=== PATIENT | female | born 1970 | race Caucasian/White ===

== ENCOUNTER → 2020-11-21 15:31 | Outpatient (BNVA) | payer MEDICARE, MEDICAID, SELFPAY | PROVIDERS: PCP Internal Medicine; Visit Provider Urology | DX: N32.81 Overactive bladder (principal) | CPT/HCPCS: Q3014 ==

== ENCOUNTER 2021-05-06 12:53 | Outpatient (REF) | payer MEDICARE, MEDICAID, SELFPAY ==
--- NOTE | ~2021-05-06 | MM_ITS ---
EXAMINATION: MM SCREENING DIGITAL BREAST TOMOSYNTHESIS, BILATERAL CLINICAL INFORMATION: Screening. Asymptomatic. The lifetime risk of breast cancer based on the Tyrer-Cuzick Model is 10%. COMPARISON: Mammography: 04/30/2020, 04/25/2019, 04/07/2018 TECHNIQUE: Digital breast tomosynthesis is performed in both the craniocaudal and mediolateral oblique views along with computer-aided detection (CAD). Synthesized 2D images are generated from the tomosynthesis. FINDINGS: There are scattered areas of fibroglandular density (ACR BI-RADS breast composition Category b). There are no significant masses, abnormal calcifications, or other abnormalities. Parenchymal pattern is similar to prior exam. No developing density. The skin contours are smooth. MM/MM tomosynthesis screening BI IMPRESSION: No mammographic evidence of malignancy. ASSESSMENT: BI-RADS 1: Negative RECOMMENDATION: Routine annual mammography screening. This patient's information was entered into a reminder system with a target due date for their next mammogram.
== END 2021-05-06 12:54 | disposition home or self-care (01) ==
LOC: HO.MAMMO 12:53
PROVIDERS: Visit Provider Internal Medicine
DX: Z12.31 Encounter for screening mammogram for malignant neoplasm of breast (principal)
CPT/HCPCS: 77063; 77067

== ENCOUNTER 2021-05-23 21:18 | Emergency (ER) | payer MEDICARE, MEDICAID, SELFPAY ==
[2021-05-23 21:26] VITALS: BP 118/64; BP 120/88; PULSE 67; PULSE 86; RESP 17; TEMP 37.2; O2SAT 100; O2SAT 97; BMI 26.5
[2021-05-23 21:33] VITALS: BP 118/64; PULSE 74; RESP 17; O2SAT 99
[2021-05-23 21:56] LABS: MANUAL DIFF FLAG NO
[2021-05-23 21:57] LABS: Basophils Absolute Auto 0.1 X10*3/uL (0.0-0.2); Basophils Percent Auto 0.6 % (0-2); Eosinophils Absolute Auto 0.2 X10*3/uL (0.0-0.4); Eosinophils Percent Auto 1.8 % (0-4); Hematocrit 37.9 % (37-47); Hemoglobin 12.5 g/dl (12.0-16.0); Imm Gran Abs Auto 0.02 X10*3/uL (0.00-0.03); Imm Gran Pct Auto 0.2 % (0.0-0.4); Lymphocytes Absolute Auto 3.2 X10*3/uL (1.2-4.9); Lymphocytes Percent Auto 37.8 % (20-40); Mean Corpuscular Volume 87.9 fL (80-98); Mean Platelet Volume 8.8 fL (9.4-12.3); Monocytes Absolute Auto 0.6 X10*3/uL (0.1-1.2); Monocytes Percent Auto 7.4 % (2-11); Neutrophils Absolute Auto 4.4 X10*3/uL (2.0-8.3); Neutrophils Percent Auto 52.2 % (45-73); Platelet Count 227 X10*3/uL (160-400); Red Blood Count 4.31 X10*6/uL (4.20-5.50); Red Cell Distribution Width 13.3 % (11.0-16.0); White Blood Count 8.4 X10*3/uL (4.8-10.8)
[2021-05-23 21:59] LABS: Glucose Urine UA NEG (NEG); Leukocyte Esterase Urine NEG (NEG); Nitrite Urine NEG (NEG); Urine Blood NEG (NEG); Urine Ketones NEG (NEG); Urine Protein NEG (NEG-TRACE)
[2021-05-23 22:04] LABS: Appearance Urine CLEAR; Color Urine YELLOW
[2021-05-23 22:22] LABS: Troponin-I High Sensitivity < 3.5 ng/L (<3.5-17.0)
[2021-05-23 22:26] LABS: Anion Gap 11 (12-20); Blood Urea Nitrogen 13 mg/dL (9-16); Carbon Dioxide 22 mmol/L (22-29); Chloride 111 mmol/L (96-108); Creatinine Clr Calc Pharmacy 71.6; Estimated Glomerular Filt Rate > 60; Glucose Random 101 mg/dL (60-115); Potassium 3.7 mmol/L (3.3-5.1); Sodium 140 mmol/L (135-145)
[2021-05-23 22:54] VITALS: BP 114/63; PULSE 71; RESP 14; TEMP 37.2; O2SAT 97
--- NOTE | 2021-05-23 23:58 | ED.CHESTPAIN ---
HPI - Chest Pain General Chief Complaint: Chest Pain Stated Complaint: chest pain anxiety Time Seen by Provider: 05/23/21 23:58 Source: patient Mode of arrival: EMS History of Present Illness HPI narrative: 50-year-old female is brought in by EMS after stating that she was at rest in bed and at approximately 8:00 p.m. began experiencing significant substernal chest pressure that she rates at 5/10, nonradiating, and not associated with dizziness/headache/nausea/diaphoresis but states that she did have some mild shortness of breath and noted that the pain increase with deep inspiration but denies any association with movement. Otherwise, she denies any recent or current sore throat, new cough, fever, chills, GI or symptoms. At this time patient states that she is completely asymptomatic and is unsure as to whether not this may be associated with her anxiety. Related Data Home Medications Medication Instructions Recorded Confirmed fluticasone propionate 50 2 spray INTRANASAL DAILY 08/09/20 08/09/20 mcg/actuation nasal spray,suspension levonorgestrel 20 mcg/24 hours (6 INTRAUTERINE 08/09/20 08/09/20 yrs) 52 mg intrauterine device (Mirena) Previous Rx's Medication Instructions Recorded fesoterodine 8 mg tablet,extended 8 mg PO DAILY 90 Days #90 tab 10/10/20 release 24 hr (Toviaz) fesoterodine 4 mg tablet,extended 4 mg PO DAILY 90 Days #90 tab 11/21/20 release 24 hr epinephrine 0.3 mg/0.3 mL 0.3 mg IM Q15M PRN #2 ea 02/21/21 injection, auto-injector (EpiPen 2-Ken) escitalopram oxalate 10 mg tablet 10 mg PO DAILY 90 Days #90 tab 05/09/21 lorazepam 0.5 mg tablet 0.5 mg PO BID PRN 30 Days #60 tab 05/09/21 Allergies Allergy/AdvReac Type Severity Reaction Status Date / Time bee pollen [BEE STINGS] Allergy Unknown UNKNOWN Verified 05/23/21 21:25 Review of Systems Review of Systems: Pertinent positives and negatives as stated in HPI 10 point review of systems is otherwise negative. PMFSH Past Medical History Source: nursing notes reviewed Medical History Allergic rhinitis Depression History of supraventricular tachycardia Impaired fasting glucose Obesity (BMI 30-39.9) Overactive bladder Post traumatic stress disorder (PTSD) Pure hypercholesterolemia Surgical History History of ankle surgery History of cardiac radiofrequency ablation Family History Family History Father Cancer CVD (cardiovascular disease) Mother Breast cancer Hypertension Diabetes Social History Social History Advance Directives: No Advance Directives Information Provided: No Patient : No Physical Exam Vital Signs: Vital Signs: Last Vital Signs Temp 98.9 F 05/23/21 22:54 Pulse 76 05/24/21 00:45 Resp 14 05/24/21 00:45 BP 125/74 05/24/21 00:45 Pulse Ox 98 05/24/21 00:45 Body Mass Index 26.5 VITAL SIGNS: Reviewed. GENERAL: Well developed, well nourished, in no acute distress. HEAD: Normocephalic/atraumatic EYES: PERRLA, EOMI EARS: Ext canals without abnormality, TMs non-bulging and non-erythematous NOSE: Nares patent bilateral OROPHARYNX: no oral lesions noted, posterior pharynx clear and non-erythematous without noted tonsillar enlargement/erythema/exudates NECK: Supple, no adenopathy LUNGS: Normal breath sounds. No adventitious sounds or accessory muscle use. SpO2<97>, no chest wall tenderness on palpation CARDIOVASCULAR: Regular rate and rhythm without noted murmurs, no JVD or lower extremity edema. ABDOMEN: Soft, non-tender, non-distended with bowel sounds. MUSCULOSKELETAL: No tenderness, deformities, or effusions noted on gross inspection. EXTREMITIES: No cyanosis, clubbing or edema. SKIN: Inspection of the skin reveals no rashes NEUROLOGIC: Alert and oriented x 4. Strength and sensation to light touch were grossly intact x 4. Course Course Course Narrative: This is a 50-year-old female with history and clinical presentation suggestive of possible anxiety versus acid reflux symptoms, however will rule out cardiopulmonary etiologies to include infection. Review of all investigations negative for any acute findings and serial troponins were both undetectable as well as no acute findings on EKG. All results were discussed with the patient at bedside and she was discharged home in stable condition with instructions to follow-up with her primary care provider. MDM - Chest Pain Lab Data Result diagrams: 05/23/21 21:51 05/23/21 21:51 Labs: Lab Results 05/23/21 05/23/21 05/23/21 Range/Units 21:51 21:51 21:51 WBC 8.4 (4.8-10.8) X10*3/uL RBC 4.31 (4.20-5.50) X10*6/uL Hgb 12.5 (12.0-16.0) g/dl Hct 37.9 (37-47) % MCV 87.9 (80-98) fL MCH 29.0 (27.0-33.0) pg MCHC 33.0 (31.0-35.0) g/dl RDW 13.3 (11.0-16.0) % Plt Count 227 (160-400) X10*3/uL MPV 8.8 L (9.4-12.3) fL Immature Gran % (Auto) 0.2 (0.0-0.4) % Neut % (Auto) 52.2 (45-73) % Lymph % (Auto) 37.8 (20-40) % [place] % (Auto) 7.4 (2-11) % Eos % (Auto) 1.8 (0-4) % Baso % (Auto) 0.6 (0-2) % Lymph # (Auto) 3.2 (1.2-4.9) X10*3/uL [place] # (Auto) 0.6 (0.1-1.2) X10*3/uL Eos # (Auto) 0.2 (0.0-0.4) X10*3/uL Baso # (Auto) 0.1 (0.0-0.2) X10*3/uL Abs Immat Gran (auto) 0.02 (0.00-0.03) X10*3/uL Absolute Neuts (auto) 4.4 (2.0-8.3) X10*3/uL Absolute Nucleated RBC 0.000 (0.0-0.012) X10*3/uL Nucleated RBC % (auto) 0.0 (0.0-0.2) /100WBC Sodium 140 (135-145) mmol/L Potassium 3.7 (3.3-5.1) mmol/L Chloride 111 H (96-108) mmol/L Carbon Dioxide 22 (22-29) mmol/L Anion Gap 11 L (12-20) BUN 13 (9-16) mg/dL Creatinine 0.87 (0.5-1.4) mg/dL Estim Creat Clear Calc 71.6 Estimated GFR > 60 Random Glucose 101 (60-115) mg/dL Calcium 9.0 (8.4-10.2) mg/dL Troponin I High Sens (<3.5-17.0) ng/L Urine Color YELLOW Urine Appearance CLEAR Urine pH 7.0 (5.0-8.0) Ur Specific [place] 1.010 (1.005-1.025) Urine Protein NEG (NEG-TRACE) MG/DL Urine Glucose (UA) NEG (NEG) MG/DL Urine Ketones NEG (NEG) MG/DL Urine Blood NEG (NEG) Urine Nitrite NEG (NEG) Ur Leukocyte Esterase NEG (NEG) 05/23/21 05/24/21 Range/Units 21:51 00:50 WBC (4.8-10.8) X10*3/uL RBC (4.20-5.50) X10*6/uL Hgb (12.0-16.0) g/dl Hct (37-47) % MCV (80-98) fL MCH (27.0-33.0) pg MCHC (31.0-35.0) g/dl RDW (11.0-16.0) % Plt Count (160-400) X10*3/uL MPV (9.4-12.3) fL Immature Gran % (Auto) (0.0-0.4) % Neut % (Auto) (45-73) % Lymph % (Auto) (20-40) % [place] % (Auto) (2-11) % Eos % (Auto) (0-4) % Baso % (Auto) (0-2) % Lymph # (Auto) (1.2-4.9) X10*3/uL [place] # (Auto) (0.1-1.2) X10*3/uL Eos # (Auto) (0.0-0.4) X10*3/uL Baso # (Auto) (0.0-0.2) X10*3/uL Abs Immat Gran (auto) (0.00-0.03) X10*3/uL Absolute Neuts (auto) (2.0-8.3) X10*3/uL Absolute Nucleated RBC (0.0-0.012) X10*3/uL Nucleated RBC % (auto) (0.0-0.2) /100WBC Sodium (135-145) mmol/L Potassium (3.3-5.1) mmol/L Chloride (96-108) mmol/L Carbon Dioxide (22-29) mmol/L Anion Gap (12-20) BUN (9-16) mg/dL Creatinine (0.5-1.4) mg/dL Estim Creat Clear Calc Estimated GFR Random Glucose (60-115) mg/dL Calcium (8.4-10.2) mg/dL Troponin I High Sens < 3.5 < 3.5 (<3.5-17.0) ng/L Urine Color Urine Appearance Urine pH (5.0-8.0) Ur Specific [place] (1.005-1.025) Urine Protein (NEG-TRACE) MG/DL Urine Glucose (UA) (NEG) MG/DL Urine Ketones (NEG) MG/DL Urine Blood (NEG) Urine Nitrite (NEG) Ur Leukocyte Esterase (NEG) ECG Data ECG #1: Attestation: I personally reviewed and interpreted this ECG as follows: Prior ECG tracings: not available for review Interpretation: Normal sinus rhythm, HR-72, no STEMI, [place]/QRS/QTC are within normal limits. Discharge Plan Discharge Clinical Impression: Atypical chest pain, Anxiety Patient Disposition: Home, Self-Care Instructions: Anxiety (ED) Additional Instructions: 1. Resume all home medications as prescribed. 2. Please follow-up with primary care provider in the next 2-3 days for re-evaluation and further outpatient management. Return to the ER for acute worsening of symptoms. Prescriptions: No Action Toviaz 8 mg tablet extended release 24 hr 8 mg PO DAILY 90 Days Qty: 90 RF: 2 epinephrine [EpiPen 2-Ken] 0.3 mg/0.3 mL auto-injector 0.3 mg IM Q15M PRN (Reason: anaphylaxis) Qty: 2 RF: 2 escitalopram oxalate 10 mg tablet 10 mg PO DAILY 90 Days Qty: 90 RF: 1 lorazepam 0.5 mg tablet 0.5 mg PO BID PRN (Reason: anxiety) 30 Days Qty: 60 RF: 0 Mirena 20 mcg/24 hours (5 yrs) 52 mg intrauterine device intrauterine RF: 0 fluticasone propionate 50 mcg/actuation spray,suspension 2 spray intranasal DAILY RF: 0 fesoterodine 4 mg tablet extended release 24 hr 4 mg PO DAILY 90 Days Qty: 90 RF: 3 Referrals: Marco Gresham MD [Primary Care Provider] - 2 days
--- NOTE | 2021-05-24 00:04 | ECG_ITS ---
Test Reason : CHEST PAIN Blood Pressure : / mmHG Vent. Rate : 072 BPM Atrial Rate : 072 BPM P-R Int : 136 ms QRS Dur : 078 ms QT Int : 380 ms P-R-T Axes : 026 077 050 degrees QTc Int : 416 ms Normal sinus rhythm Normal ECG When compared with ECG of 16-JAN-2010 14:44, No significant change was found Referred By: Megan Darling Electronically Signed By:JEROME ART
--- NOTE | 2021-05-24 00:19 | PC.NURSE ---
per Dr Darling, repeat EKG not needed.
[2021-05-24 00:45] VITALS: BP 125/74; PULSE 76; RESP 14; O2SAT 98
[2021-05-24 01:18] LABS: Troponin-I High Sensitivity < 3.5 ng/L (<3.5-17.0)
== END 2021-05-24 01:33 | disposition home or self-care (01) ==
PROVIDERS: Emergency Provider Student in an Organized Health Care Education/Training Program; PCP Internal Medicine
DX: R07.89 Other chest pain (principal); F41.1 Generalized anxiety disorder; F43.0 Acute stress reaction; R42 Dizziness and giddiness; Z79.899 Other long term (current) drug therapy; R06.02 Shortness of breath
CPT/HCPCS: 36415; 80048; 81003; 84484; 85025; 93005; 99284

== ENCOUNTER → 2021-06-04 14:40 | Outpatient (BNVA) | payer MEDICARE, MEDICAID, SELFPAY | PROVIDERS: PCP Internal Medicine; Visit Provider Advanced Practice Midwife | DX: Z30.432 Encounter for removal of intrauterine contraceptive device (principal); L90.0 Lichen sclerosus et atrophicus; E78.00 Pure hypercholesterolemia, unspecified; E66.9 Obesity, unspecified; Z68.29 Body mass index [BMI] 29.0-29.9, adult; Z91.030 Bee allergy status; Z79.899 Other long term (current) drug therapy | CPT/HCPCS: 58301 ==

== ENCOUNTER → 2021-07-23 14:40 | Outpatient (BNVA) | payer MEDICARE, MEDICAID, SELFPAY | PROVIDERS: Visit Provider Advanced Practice Midwife | DX: L90.0 Lichen sclerosus et atrophicus (principal); J30.9 Allergic rhinitis, unspecified; E78.00 Pure hypercholesterolemia, unspecified; F43.10 Post-traumatic stress disorder, unspecified; F32.9 Major depressive disorder, single episode, unspecified; Z91.030 Bee allergy status; Z79.52 Long term (current) use of systemic steroids | CPT/HCPCS: 99212 ==

== ENCOUNTER 2021-10-29 09:22 | Outpatient (REF) | payer MEDICARE, MEDICAID, SELFPAY ==
[2021-10-29 09:50] LABS: MANUAL DIFF FLAG NO
[2021-10-29 09:57] LABS: Basophils Percent Auto 0.4 % (0-2); Eosinophils Absolute Auto 0.1 X10*3/uL (0.0-0.4); Eosinophils Percent Auto 0.8 % (0-4); Hemoglobin 13.7 g/dl (12.0-16.0); Imm Gran Abs Auto 0.01 X10*3/uL (0.00-0.03); Imm Gran Pct Auto 0.1 % (0.0-0.4); Lymphocytes Absolute Auto 2.1 X10*3/uL (1.2-4.9); Lymphocytes Percent Auto 29.3 % (20-40); Mean Corpuscular HGB Conc 32.6 g/dl (31.0-35.0); Mean Corpuscular Hemoglobin 29.3 pg (27.0-33.0); Mean Corpuscular Volume 89.9 fL (80.0-98.0); Mean Platelet Volume 8.9 fL (9.4-12.3); Monocytes Absolute Auto 0.5 X10*3/uL (0.1-1.2); Monocytes Percent Auto 7.4 % (2-11); Neutrophils Absolute Auto 4.5 x10*3/uL (2.0-8.3); Platelet Count 254 X10*3/uL (160-400); Red Blood Count 4.67 X10*6/uL (4.20-5.50); Red Cell Distribution Width 13.1 % (11.0-16.0); White Blood Count 7.3 X10*3/uL (4.8-10.8)
[2021-10-29 11:09] LABS: Alanine Aminotransferase 14 U/L (0-31); Alkaline Phosphatase 70 U/L (39-117); Anion Gap 13 (12-20); Aspartate Amino Transferase 14 U/L (5-31); Bilirubin Total 0.5 mg/dL (0.0-1.0); Blood Urea Nitrogen 20 mg/dL (9-16); Calcium 9.2 mg/dL (8.4-10.2); Carbon Dioxide 21 mmol/L (22-29); Chloride 108 mmol/L (96-108); Cholesterol 157 mg/dL; Estimated Glomerular Filt Rate > 60; Glucose Fasting 99 mg/dL (60-99); HDL Cholesterol 38 mg/dL; LDL Cholesterol Calculated 104 mg/dl; Potassium 4.3 mmol/L (3.3-5.1); Sodium 138 mmol/L (135-145); Total Protein 6.7 g/dL (6.5-8.0); Triglycerides 79 mg/dL
[2021-10-29 11:11] LABS: TSH reflex Free T4 3.27 uIU/mL (0.32-4.0); Vitamin D 25-OH Total 22.7 ng/mL (>30)
[2021-10-29 11:18] LABS: Appearance Urine CLEAR; Color Urine YELLOW; Glucose Urine UA NEG (NEG); Leukocyte Esterase Urine NEG (NEG); Nitrite Urine NEG (NEG); Specific Gravity - Urine 1.015 (1.005-1.025); Urine Blood NEG (NEG); Urine Ketones NEG (NEG); Urine Protein NEG (NEG-TRACE)
== END 2021-10-29 09:23 | disposition home or self-care (01) ==
LOC: HO.LAB 09:22
PROVIDERS: PCP Internal Medicine; Visit Provider Internal Medicine
DX: I10 Essential (primary) hypertension (principal); E55.9 Vitamin D deficiency, unspecified; E78.00 Pure hypercholesterolemia, unspecified; R73.01 Impaired fasting glucose; J30.9 Allergic rhinitis, unspecified; Z86.79 Personal history of other diseases of the circulatory system
CPT/HCPCS: 36415; 80053; 80061; 81003; 82306; 84443; 85025

== ENCOUNTER → 2021-11-25 14:20 | Outpatient (BNVA) | payer MEDICARE, MEDICAID, SELFPAY | PROVIDERS: PCP Internal Medicine; Visit Provider Urology | DX: N32.81 Overactive bladder (principal) | CPT/HCPCS: 51798; 99212 ==

== ENCOUNTER → 2021-11-26 12:48 | Outpatient (BNVA) | payer MEDICARE, MEDICAID, SELFPAY | PROVIDERS: PCP Internal Medicine; Referring Provider Internal Medicine; Visit Provider Nurse Practitioner Family | DX: Z12.11 Encounter for screening for malignant neoplasm of colon (principal) | CPT/HCPCS: 99202 ==

== ENCOUNTER 2022-03-10 07:56 | Day surgery (SDC) | payer MEDICARE, MEDICAID, SELFPAY ==
--- NOTE | 2022-03-06 12:58 | HO.ANESPROP2 ---
Documented by User: Yanna Almonte NP 03/06/22 13:04 HPI - Anesthesia Eval Consult details Narrative: 51yo F for Colonoscopy PMFSH Active Problems Active Problems: All Active Problems (Updated 10/29/21 @ 15:07 by Marco Gresham MD) Overweight (BMI 25.0-29.9) (Acute) Colon cancer screening (Acute) Encounter for Medicare annual wellness exam (Acute) Obesity (BMI 30-39.9) (Acute) Depression (Acute) Post traumatic stress disorder (PTSD) (Acute) Overactive bladder (Acute) Allergic rhinitis (Acute) History of supraventricular tachycardia (Acute) Impaired fasting glucose (Acute) Pure hypercholesterolemia (Acute) Past Medical History Medical History Allergic rhinitis Depression History of supraventricular tachycardia Impaired fasting glucose Obesity (BMI 30-39.9) Overactive bladder Overweight (BMI 25.0-29.9) Post traumatic stress disorder (PTSD) Pure hypercholesterolemia Family History Family History Father Cancer CVD (cardiovascular disease) Mother Breast cancer Hypertension Diabetes Surgical History Surgical History History of ankle surgery History of cardiac radiofrequency ablation Social History Social History Housing: Assisted Living Facility Alcohol intake: never Patient Tobacco Use Status: Never used Tobacco Second Hand Smoke Exposure: No service: No Current occupational status: unemployed Meds Allergies Allergy/AdvReac Type Severity Reaction Status Date / Time bee pollen [BEE STINGS] Allergy Unknown UNKNOWN Verified 11/26/21 12:52 Home Medications Medication Instructions Recorded Confirmed Last Taken Type fluticasone propionate 50 2 spray INTRANASAL DAILY 08/09/20 03/03/22 Unknown History mcg/actuation nasal spray,suspension escitalopram oxalate 10 mg tablet 15 mg PO DAILY tab 11/26/21 03/03/22 Unknown History loratadine 10 mg capsule (Claritin 10 mg PO DAILY 11/26/21 03/03/22 Unknown History Liqui-Gel) Exam Exam Date and Time: March 06, 2022 1258 Pertinent Lab Results Pertinent Lab Results: Laboratory Tests 10/29/21 10/29/21 09:49 09:49 WBC 7.3 Hgb 13.7 Hct 42.0 Plt Count 254 Sodium 138 Potassium 4.3 Chloride 108 Carbon Dioxide 21 L BUN 20 H Creatinine 0.85 Narrative Narrative: EKG 05/2021 Vent. Rate : 072 BPM ? ? Atrial Rate : 072 BPM ?? P-R Int : 136 ms? QRS Dur : 078 ms ? ? QT Int : 380 ms ? ? ? P-R-T Axes : 026 077 050 degrees ?? QTc Int : 416 ms ? Normal sinus rhythm Normal ECG When compared with ECG of 16-JAN-2010 14:44, No significant change was found Assessment and Plan Assessment Anesthesia Assessment: Chart Reviewed Documented by User: Hossein Childress MD 03/10/22 15:56 [facility] Past Medical History Medical History Allergic rhinitis Depression History of supraventricular tachycardia Impaired fasting glucose Obesity (BMI 30-39.9) Overactive bladder Overweight (BMI 25.0-29.9) Post traumatic stress disorder (PTSD) Pure hypercholesterolemia Family History Family History Father Cancer CVD (cardiovascular disease) Mother Breast cancer Hypertension Diabetes Family history of problems with anesthesia: No Surgical History Surgical History History of ankle surgery History of cardiac radiofrequency ablation History of Problems with Anesthesia: No Social History Social History Housing: Assisted Living Facility Alcohol intake: never Patient Tobacco Use Status: Never used Tobacco Second Hand Smoke Exposure: No service: No Current occupational status: unemployed Meds Allergies Allergy/AdvReac Type Severity Reaction Status Date / Time bee pollen [BEE STINGS] Allergy Unknown UNKNOWN Verified 11/26/21 12:52 Home Medications Medication Instructions Recorded Confirmed Last Taken Type fluticasone propionate 50 2 spray INTRANASAL DAILY 08/09/20 03/03/22 Unknown History mcg/actuation nasal spray,suspension escitalopram oxalate 10 mg tablet 15 mg PO DAILY tab 11/26/21 03/03/22 Unknown History loratadine 10 mg capsule (Claritin 10 mg PO DAILY 11/26/21 03/03/22 Unknown History Liqui-Gel) Exam Airway Mallampati Class: II TM Dist: >3cm Neck ROM: Full Loose/Missing/Broken Teeth: Yes (Poor dentition ) Heart: S1,S2 Lungs: b/l breath sounds Assessment and Plan Assessment Anesthesia Assessment: Anesthesia Plan Discussed Final Anesthetic Review Family History of Problems with Anesthesia: No History of Problems with Anesthesia: No NPO: Yes ASA Class: II Final Preanesthetic Review: Meds/Allgs Chart Reviewed, Consent Obtained/Reviewed and Anes Risks/Benef Reviewed Patient Risk: Intermediate Procedure Risk: Intermediate Anesthetic Plan Anesthetic Plan: MAC: Disposition: Standard PACU
--- NOTE | 2022-03-10 08:36 | MHC.SHP ---
Pre-Procedural Eval Section A Date of Service: 03/10/22 Section B Chief Complaint: screening Relevant Family History (Specify if Yes): No Relevant Social History: None Present Medications: see Short Stay Collaborative assessment Medical History: Significant History (Allergic rhinitis Depression History of supraventricular tachycardia Impaired fasting glucose Obesity (BMI 30-39.9) Overactive bladder Overweight (BMI 25.0-29.9) Post traumatic stress disorder (PTSD) Pure hypercholesterolemia) History of Previous Operations: Relevant previous surgery/procedure and date(s) (History of ankle surgery History of cardiac radiofrequency ablation) Allergies: Allergies Allergy/AdvReac Type Severity Reaction Status Date / Time bee pollen [BEE STINGS] Allergy Unknown UNKNOWN Verified 11/26/21 12:52 Review of Systems Sugical H&P ROS: Negative: Constitution, Cardiovascular, Respiratory, Neurological, Psychiatric, Hem-Onc, Allergic/Immunologic, Gastrointestinal, Genitourinary, Musculoskeletal, Integumentary, Endocrine and Eyes/Ears/Nose/Throat Exam Surgical H&P Exam: Normal: HEENT, Normal: Heart, Normal: Lungs, Normal: Extremities, Normal: Abdomen, Normal: Skin and Normal: Neurological Plan Diagnosis/Plan: Unchanged I have reviewed the history and physical and performed a pertinent physical examination on my patient. No changes have occurred unless specified.
[2022-03-10 08:39] VITALS: BMI 25.6
[2022-03-10 09:03] VITALS: BP 100/57; PULSE 71; RESP 18; TEMP 36.7; O2SAT 98
[2022-03-10] MEDS: Lactated Ringers 1,000 ML 100 ML IVCONT (09:04)
--- NOTE | 2022-03-10 09:13 | P.BOP_ITS ---
Brief Operative Note Date of Service: 03/10/22 Pre-op diagnosis: colon s creening Post-op diagnosis: same Procedure: see op note Surgeon: Haley Triana MD Anesthesia: MAC Was an Compensation Vice President used for this Procedure?: No Estimated blood loss (mL): 0 Condition: stable Disposition: PACU
--- NOTE | 2022-03-10 09:13 | P.OP_ITS ---
Operative Note Operative Note Date of Service: 03/10/22 Narrative: Operative Information Procedure Description: Colonoscopy Indication: colon screening Anesthesia: MAC COLONOSCOPY Instrument: Olympus variable stiffness pediatric scope 190L Colonoscopy Monitoring: Vital signs and clinical assessment, continuous EKG monitoring, Pulse oximetry, Carbon Dioxide monitoring and blood pressure monitoring were done throughout the procedure. Colon withdrawal time was 9 minutes. Procedure: The patient was placed in the left lateral decubitis position and pre-procedure medications were administered. After a digital rectal examination of the ano-rectum, the video colonoscope was inserted into the rectum and advanced through the colon to the cecum/TI. The colonoscope was slowly withdrawn in a retrograde panoramic fashion and the colon mucosa was carefully examined including a retroflexed view of the rectum. Findings and interventions are described below. Procedure Difficulty: easy Findings: Terminal Ileum-normal Cecum:normal Ascending Colon: normal Transverse Colon -normal Descending Colon:normal Sigmoid Colon: normal Rectum: Retroflexion with small internal hemorrhoids, grade I Anorectum - normal Colon preparation: [place] Bowel Preparation Scale Right colon; 2 Transverse colon: 3 Left colon; 3 (0 = Unprepared colon segment with mucosa not seen due to solid stool that cannot be cleared. 1 = Portion of mucosa of the colon segment seen, but other areas of the colon segment not well seen due to staining, residual stool and/or opaque liquid. 2 = Minor amount of residual staining, small fragments of stool and/or opaque liquid, but mucosa of colon segment seen well. 3 = Entire mucosa of colon segment seen well with no residual staining, small fragments of stool or opaque liquid) Impression and Post Procedure Diagnosis: internal hemorrhoids Plan: High fiber diet leaflet Avoid straining at stool, epsom salts and sitz bath, anusol supps or cream Repeat Colonoscopy in 10 years or earlier if clinically indicated Above findings were reviewed with the patient and relevant handouts were provided if indicated.
[2022-03-10 09:34] VITALS: BP 92/32; PULSE 55; RESP 16; TEMP 36.6; O2SAT 97
[2022-03-10 09:50] VITALS: BP 97/37; PULSE 50; RESP 16; O2SAT 97
[2022-03-10 10:05] VITALS: BP 112/42; PULSE 49; RESP 16; TEMP 36.7; O2SAT 98
[2022-03-10 10:16] VITALS: BP 101/42; PULSE 50; RESP 16; TEMP 36.7; O2SAT 98
== END 2022-03-10 10:49 | disposition home or self-care (01) ==
PROVIDERS: PCP Internal Medicine; Visit Provider Internal Medicine Gastroenterology
PROC: 0DJD8ZZ Inspection of Lower Intestinal Tract, Via Natural or Artificial Opening Endoscopic (ICD-10-PCS; CPT 45378; principal; 2022-03-10 09:20)
DX: Z12.11 Encounter for screening for malignant neoplasm of colon (principal); K64.0 First degree hemorrhoids; R73.01 Impaired fasting glucose; E78.00 Pure hypercholesterolemia, unspecified; J31.0 Chronic rhinitis; F32.A Depression, unspecified; F43.10 Post-traumatic stress disorder, unspecified; N32.81 Overactive bladder; E66.3 Overweight; Z68.27 Body mass index [BMI] 27.0-27.9, adult; Z79.51 Long term (current) use of inhaled steroids; Z79.899 Other long term (current) drug therapy
CPT/HCPCS: G0121; J2250

== ENCOUNTER → 2022-03-24 08:21 | Outpatient (BNVA) | payer MEDICARE, MEDICAID, SELFPAY | PROVIDERS: PCP Internal Medicine; Visit Provider Nurse Practitioner Family | DX: K64.8 Other hemorrhoids (principal); Z98.890 Other specified postprocedural states | CPT/HCPCS: 99212 ==

== ENCOUNTER 2022-03-27 09:13 | Outpatient (REF) | payer MEDICARE, MEDICAID, SELFPAY ==
[2022-03-27 09:21] LABS: MANUAL DIFF FLAG NO
[2022-03-27 10:31] LABS: Basophils Percent Auto 0.5 % (0-2); Eosinophils Absolute Auto 0.1 X10*3/uL (0.0-0.4); Eosinophils Percent Auto 1.3 % (0-4); Hematocrit 42.3 % (37.0-47.0); Hemoglobin 13.5 g/dl (12.0-16.0); Imm Gran Abs Auto 0.01 X10*3/uL (0.00-0.03); Imm Gran Pct Auto 0.2 % (0.0-0.4); Lymphocytes Absolute Auto 2.1 X10*3/uL (1.2-4.9); Mean Corpuscular HGB Conc 31.9 g/dl (31.0-35.0); Mean Corpuscular Hemoglobin 28.7 pg (27.0-33.0); Mean Platelet Volume 8.9 fL (9.4-12.3); Monocytes Absolute Auto 0.4 X10*3/uL (0.1-1.2); Monocytes Percent Auto 5.7 % (2-11); Neutrophils Absolute Auto 3.8 x10*3/uL (2.0-8.3); Neutrophils Percent Auto 59.3 % (45-73); Platelet Count 277 X10*3/uL (160-400); Red Cell Distribution Width 13.7 % (11.0-16.0); White Blood Count 6.4 X10*3/uL (4.8-10.8)
[2022-03-27 11:01] LABS: Alanine Aminotransferase 23 U/L (0-31); Albumin Level 4.2 g/dL (3.5-5.0); Alkaline Phosphatase 80 U/L (39-117); Anion Gap 11 (12-20); Aspartate Amino Transferase 20 U/L (5-31); Bilirubin Total 0.4 mg/dL (0.0-1.0); Blood Urea Nitrogen 15 mg/dL (9-16); Calcium 8.9 mg/dL (8.4-10.2); Carbon Dioxide 24 mmol/L (22-29); Chloride 107 mmol/L (96-108); Cholesterol 190 mg/dL; Estimated Glomerular Filt Rate > 60; Glucose Fasting 98 mg/dL (60-99); HDL Cholesterol 48 mg/dL; LDL Cholesterol Calculated 132 mg/dl; Potassium 4.4 mmol/L (3.3-5.1); Sodium 138 mmol/L (135-145); Total Protein 6.9 g/dL (6.5-8.0); Triglycerides 52 mg/dL
[2022-03-30 18:57] LABS: TS Negative Control Passed; TS Panel A 0; TS Panel B 0; TS Positive Control Passed; TSpotTB Negative (Negative)
== END 2022-03-27 09:14 | disposition home or self-care (01) ==
LOC: HO.LAB 09:13
PROVIDERS: PCP Internal Medicine; Visit Provider Internal Medicine
DX: Z01.84 Encounter for antibody response examination (principal); Z11.1 Encounter for screening for respiratory tuberculosis; I10 Essential (primary) hypertension; E78.00 Pure hypercholesterolemia, unspecified
CPT/HCPCS: 36415; 80053; 80061; 84443; 85025; 86481

== ENCOUNTER → 2022-04-02 15:21 | Outpatient (BNVA) | payer MEDICARE, MEDICAID, SELFPAY | PROVIDERS: PCP Internal Medicine | DX: N32.81 Overactive bladder (principal) | CPT/HCPCS: 51798; 99212 ==

== ENCOUNTER 2022-04-07 12:36 | Outpatient (REF) | payer MEDICARE, MEDICAID, SELFPAY ==
[2022-04-08 08:03] LABS: HBS Num1 99.11 mIU/mL (0-7.99); ~Hepatitis B Surface Antibody REACTIVE (Nonreactive)
[2022-04-08 08:21] LABS: HBS Num1 92.75 mIU/mL (0-7.99); HBc Num1 0.08 S/CO (0.00-0.79); HBsAGNum1 0.23 S/CO (0.00-0.99); Hepatitis B Core Antibody Nonreactive (Nonreactive); Hepatitis B Surface Antigen Negative (Negative); ~Hepatitis B Surface Antibody REACTIVE (Nonreactive)
[2022-04-09 05:22] LABS: Rubella IgG Antibody 1.62 Index; Rubella IgG Antibody 1.71 Index
[2022-04-11 09:18] LABS: Mumps Virus IgG Antibody 9.54 AU/mL; Mumps Virus IgG Antibody <9.00 AU/mL
== END 2022-04-07 12:37 | disposition home or self-care (01) ==
LOC: HO.LAB 12:36
PROVIDERS: PCP Internal Medicine; Visit Provider Internal Medicine
DX: Z01.84 Encounter for antibody response examination (principal); Z28.39 Other underimmunization status
CPT/HCPCS: 36415; 86704; 86706; 86735; 86762; 86765; 86787; 87340

== ENCOUNTER 2022-05-07 13:35 | Outpatient (REF) | payer MEDICARE, MEDICAID, SELFPAY ==
--- NOTE | ~2022-05-07 | MM_ITS ---
EXAMINATION: MM SCREENING DIGITAL BREAST TOMOSYNTHESIS, BILATERAL CLINICAL INFORMATION: Screening. Asymptomatic. The lifetime risk of breast cancer based on the Tyrer-Cuzick Model is 10%. COMPARISON: Mammography: 05/06/2021, 04/30/2020, 04/25/2019 TECHNIQUE: Digital breast tomosynthesis is performed in both the craniocaudal and mediolateral oblique views along with computer-aided detection (CAD). Synthesized 2D images are generated from the tomosynthesis. FINDINGS: There are scattered areas of fibroglandular density (ACR BI-RADS breast composition Category b). There are no significant masses, abnormal calcifications, or other abnormalities. Parenchymal pattern is similar to prior studies. The axilla and skin contours are unremarkable. MM/MM tomosynthesis screening BI IMPRESSION: There are no significant changes from prior study. ASSESSMENT: BI-RADS 1: Negative RECOMMENDATION: Routine annual mammography screening. This patient's information was entered into a reminder system with a target due date for their next mammogram.
== END 2022-05-07 13:36 | disposition home or self-care (01) ==
LOC: HO.MAMMO 13:35
PROVIDERS: PCP Internal Medicine; Visit Provider Internal Medicine
DX: Z12.31 Encounter for screening mammogram for malignant neoplasm of breast (principal)
CPT/HCPCS: 77063; 77067

== ENCOUNTER 2022-06-08 16:02 | Outpatient (REF) | payer MEDICARE, MEDICAID, SELFPAY ==
[2022-06-11 20:32] LABS: HPV mRNA E6/E7 rflx Not Detected (Not Detected)
== END 2022-06-08 16:03 | disposition home or self-care (01) ==
LOC: HO.LAB 16:02
PROVIDERS: Visit Provider Advanced Practice Midwife
DX: Z01.419 Encounter for gynecological examination (general) (routine) without abnormal findings (principal); Z11.51 Encounter for screening for human papillomavirus (HPV)
CPT/HCPCS: 87624; 88142

== ENCOUNTER 2022-09-24 08:43 | Outpatient (REF) | payer MEDICARE, MEDICAID, SELFPAY ==
[2022-09-24 08:57] LABS: MANUAL DIFF FLAG NO
[2022-09-24 09:17] LABS: Basophils Absolute Auto 0.1 X10*3/uL (0.0-0.2); Basophils Percent Auto 0.9 % (0-2); Eosinophils Absolute Auto 0.1 X10*3/uL (0.0-0.4); Eosinophils Percent Auto 2.5 % (0-4); Hematocrit 41.4 % (37.0-47.0); Hemoglobin 13.3 g/dl (12.0-16.0); Lymphocytes Absolute Auto 1.9 X10*3/uL (1.2-4.9); Mean Corpuscular HGB Conc 32.1 g/dl (31.0-35.0); Mean Corpuscular Hemoglobin 28.4 pg (27.0-33.0); Mean Corpuscular Volume 88.3 fL (80.0-98.0); Mean Platelet Volume 8.6 fL (9.4-12.3); Monocytes Absolute Auto 0.4 X10*3/uL (0.1-1.2); Monocytes Percent Auto 7.7 % (2-11); Neutrophils Absolute Auto 3.2 x10*3/uL (2.0-8.3); Neutrophils Percent Auto 55.9 % (45-73); Platelet Count 257 X10*3/uL (160-400); Red Blood Count 4.69 X10*6/uL (4.20-5.50); Red Cell Distribution Width 12.7 % (11.0-16.0); White Blood Count 5.7 X10*3/uL (4.8-10.8)
[2022-09-24 09:23] LABS: Estimated Average Glucose 105 mg/dL; Hemoglobin A1c % 5.3 %
[2022-09-24 09:52] LABS: Amphetamine Screen Urine Not Detected (Not Detect); Barbiturates, Urine Not Detected (Not Detect); Benzodiazepines Screen Urine Not Detected (Not Detect); Cannabinoid Screen Urine Not Detected (Not Detect); Cocaine Screen Urine Not Detected (Not Detect); Fentanyl, urine Not Detected (Not Detect); Opiate Screen Urine Not Detected (Not Detect); Phencyclidine Screen Urine Not Detected (Not Detect)
[2022-09-24 10:14] LABS: Alanine Aminotransferase 24 U/L (0-31); Alkaline Phosphatase 79 U/L (39-117); Anion Gap 9 (12-20); Aspartate Amino Transferase 19 U/L (5-31); Bilirubin Total 0.5 mg/dL (0.0-1.0); Blood Urea Nitrogen 16 mg/dL (9-16); Calcium 9.1 mg/dL (8.4-10.2); Chloride 107 mmol/L (96-108); Cholesterol 164 mg/dL; Estimated Glomerular Filt Rate > 60; Glucose Fasting 103 mg/dL (60-99); HDL Cholesterol 41 mg/dL; LDL Cholesterol Calculated 110 mg/dl; Potassium 4.3 mmol/L (3.3-5.1); Sodium 139 mmol/L (135-145); TSH reflex Free T4 4.28 uIU/mL (0.32-4.0); Total Protein 6.6 g/dL (6.5-8.0); Triglycerides 67 mg/dL; Vitamin D 25-OH Total 46.5 ng/mL (>30)
[2022-09-24 10:28] LABS: Carbon Dioxide 27 mmol/L (22-29)
[2022-09-24 12:52] LABS: Free T4 (Free Thyroxine) 0.93 ng/dL (0.71-1.85)
== END 2022-09-24 08:44 | disposition home or self-care (01) ==
LOC: HO.LAB 08:43
PROVIDERS: PCP Internal Medicine; Visit Provider Internal Medicine
DX: Z02.1 Encounter for pre-employment examination (principal); E55.9 Vitamin D deficiency, unspecified; E78.00 Pure hypercholesterolemia, unspecified; R73.01 Impaired fasting glucose; I10 Essential (primary) hypertension
CPT/HCPCS: 80053; 80061; 80307; 82306; 83036; 84439; 84443; 85025

== ENCOUNTER → 2022-10-01 15:17 | Outpatient (BNVA) | payer MEDICARE, MEDICAID, SELFPAY | PROVIDERS: PCP Internal Medicine; Visit Provider Urology | DX: N32.81 Overactive bladder (principal); R35.1 Nocturia | CPT/HCPCS: 51798; 99212 ==

== ENCOUNTER → 2022-11-03 15:01 | Outpatient (BNVA) | payer MEDICARE, MEDICAID, SELFPAY | PROVIDERS: PCP Internal Medicine; Visit Provider Advanced Practice Midwife | DX: Z30.09 Encounter for other general counseling and advice on contraception (principal) | CPT/HCPCS: 99212 ==

== ENCOUNTER 2022-11-24 09:24 | Outpatient (REF) | payer MEDICARE, MEDICAID, SELFPAY ==
--- NOTE | 2022-11-24 10:42 | MHC.AU.HA1 ---
Hearing Aid Evaluation Date of Visit: 11/24/22 Historical Information: Description of Hearing: Within normal sloping to severe sensorineural hearing loss, bilaterally Summary: Kelly has reportedly never thought about wearing hearing aids; however, she is willing to try to help ease some of her communication difficulties. Kelly lives with her producer director, Lorena, and reportedly has significant trouble hearing and understanding at home. Kelly also recognizes her hearing difficulties. Both Kelly and Lorena opted for a RITE style hearing aid starting with a dome and were confident that Kelly would be able to manipulate the devices to insert/remove independently. Hearing Aid Prescription: Based on the individual?s shared listening needs, communication environments, dexterity, desire for connectivity, and personal preferences, the following prescription for amplification has been made: Right ear: Model Waldemar, Color: Phonak [place] L70-R Color: Graphite Johnson Battery Size: Rechargeable Expert Witness/Slim Tube: 1M Type of Earmold/Dome/CShell/SlimTip: Small open dome Left ear: Left ear prescription to be same as Right Hearing Aid above: Waldemar Model, Color: Phonak [place] L70-R Color: Graphite Johnson Battery Size: Rechargeable Expert Witness/Slim Tube: 1M Type of Earmold/Dome/CShell/SlimTip: Small open dome Plan of Care: Patient wishes to purchase hearing aids as prescribed Action Taken/Action Needed: Medical Clearance to be requested from PCP/ENT. Hearing Instrument Fitting to be scheduled when materials arrive Comments: Needs cerumen removal from the right ear by PCP prior to hearing aid fitting Primary Diagnosis: H90.3 Bilateral Sensorineural Hearing Loss Signature: Provider: Ruddy Georges, [facility]
--- NOTE | 2022-11-24 10:43 | MHC.AU.MED ---
Medical Clearance for Hearing Instrumentation Date: 11/24/22 Patient Name: Kelly Perkins Date of : 1970 Primary Care Provider: Marco Gresham MD We have seen your patient on 11/24/22 and have determined that they are a candidate for amplification (See accompanying report). Specifically, they would benefit from: Hearing aid use in both ears There is a statute that addresses Medical Evaluation Requirements prior to fitting a patient with a hearing aid. According to [place] statute 265 CMR:6.03(1), (a) General. Except as provided in 265 CMR 6.03(1)(b), a dumper mold cleaner shall not sell a hearing aid unless the prospective user has presented to the dumper mold cleaner a written statement signed by a licensed physician that states that the patient's hearing loss has been medically evaluated and the patient may be considered a candidate for a hearing aid. The medical evaluation must have taken place within the preceding six months. Please note: Due to the [place] Statute referenced above, we cannot accept a signature other than that of a licensed physician. PANEL LAY UP WORKER and PA signatures cannot be accepted. I am in agreement with the above recommendation. There is no medical contraindication for hearing instrumentation. Physician Signature Date Physician Name (Printed)
== END 2022-11-24 09:25 | disposition home or self-care (01) ==
LOC: HO.SH 09:24
PROVIDERS: Visit Provider Internal Medicine
DX: Z01.118 Encounter for examination of ears and hearing with other abnormal findings (principal); Z46.1 Encounter for fitting and adjustment of hearing aid; H90.3 Sensorineural hearing loss, bilateral
CPT/HCPCS: 92557; 92567; 92591

== ENCOUNTER 2022-12-11 14:05 | Outpatient (REF) | payer MEDICARE, MEDICAID, SELFPAY ==
--- NOTE | 2022-12-11 15:03 | MHC.AU.HA2 ---
Hearing Instrument Fitting- Adult- Binaural Date of Visit: 12/11/22 Hearing Instruments Dispensed: Right Ear: Make, Model, Color, Serial Number: Mandeep Lux L70-[id number] SN: [id number] Color: Graphite Johnson Mold Design Engineer Repair Warranty: 02/24/2026 Mold Design Engineer Loss and Damage Warranty: 02/24/2026 [facility] Service Plan: 12/12/2023 Battery Size: Rechargeable Modeling Instructor/Slim Tube: 1M Earmold/Dome/CShell/SlimTip: Small open dome Type of Wax Guard: CeruShield Left Ear: Make, Model, Color, Serial Number: Mandeep Cosmeo L70-R SN: [id number] Color: Graphite Johnson Mold Design Engineer Repair Warranty: 02/24/2026 Mold Design Engineer Loss and Damage Warranty: 02/24/2026 [facility] Service Plan: 12/12/2023 Battery Size: Rechargeable Modeling Instructor/Slim Tube: 1M Earmold/Dome/CShell/SlimTip: Small open dome Type of Wax Guard: CeruShield Accessories/Assistive Technology: Phonak Block Bolter Mule Operator Ease with EPS Summary of Fitting: Kelly attended today's appointment independently. Caregiver not present. Did not have wax removed from right ear prior to fitting; however, able to perform feedback retail tire sales manager and real ear measurements with appropriate match to target. Decreased to 90% gain level. Kelly noted good overall sound quality. Discussed care, use, and rechargeability including manually turning on/off, volume control use, and importance of consistent use. Advised of need for periodic changing of domes/wax guards which will occur at routine clean and check appointments. Some difficulty with insertion but better with practice in office and Kelly seemed motivate to practice at home. Did not pair to cell phone at this time. Kelly is excited to have hearing aids to help ease some communication difficulties especially at her day program - [employer] - and at home, hearing her caregiver as well as the television. Recommendations: A hearing instrument follow-up was scheduled. Recommendations (Other): Right ear cerumen removal Diagnosis Code(s): Primary Diagnosis: H90.3 Bilateral Sensorineural Hearing Loss Signature: Provider: Ruddy Georges, [facility]
== END 2022-12-11 14:06 | disposition home or self-care (01) ==
LOC: HO.HAP 14:05
PROVIDERS: Visit Provider Internal Medicine
DX: Z46.1 Encounter for fitting and adjustment of hearing aid (principal); H90.3 Sensorineural hearing loss, bilateral
CPT/HCPCS: V5011; V5020; V5160; V5261

== ENCOUNTER 2022-12-25 12:48 | Outpatient (REF) | payer MEDICARE, MEDICAID, SELFPAY ==
--- NOTE | 2022-12-25 13:16 | MHC.AU.HA3 ---
Hearing Instrument Follow-Up- Binaural Date of Visit: 12/25/22 Right Ear: Waldemar, Model, Color, Serial Number: Mandeep Lux L70-R SN: [id number] Color: Graphite Johnson Carpenter Maintenance Repair Warranty: 02/24/2026 Carpenter Maintenance Loss and Damage Warranty: 02/24/2026 [facility] Service Plan: 12/12/2023 Battery Size: Rechargeable Color Developer/Slim Tube: 0M Earmold/Dome/CShell/SlimTip:Small open dome Type of Wax Guard: CeruShield Dispensed By: [facility] Date of Fittin12/11/2022 Left Ear: Waldemar, Model, Color, Serial Number: Mandeep Lux L70-R SN: [id number] Color: Graphite Johnson Carpenter Maintenance Repair Warranty: 02/24/2026 Carpenter Maintenance Loss and Damage Warranty: 02/24/2026 [facility] Service Plan: 12/12/2023 Battery Size: Rechargeable Color Developer/Slim Tube: 0M Earmold/Dome/CShell/SlimTip: Small open dome Type of Wax Guard: CeruShield Dispensed By: [facility] Date of Fittin12/11/2022 Follow-Up Summary: Kelly reported that overall the hearing aids have been great. She notices significant improvement in hearing and understanding people at her day program as well as her caregiver at home. Data logging showed about 14 hours of use per day. Kelly's only concern is that the left hearing aid tends to fall off her pinna. Upon inspection, production line technician does appear slightly too long. Switched to size 0 production line technician on both hearing aids and Kelly noticed an immediate improvement in security of fit. Discussed needing to be careful when removing mask. Otherwise, Kelly is satisfied with the hearing aids. Ordered 0M L&R receivers to replace stock. Recommendations: Hearing instrument maintenance in 6 months, or sooner if needed. Please contact our clinic with any questions or concerns. Diagnosis Code(s): Primary Diagnosis: H90.3 Bilateral Sensorineural Hearing Loss Signature: Provider: Ruddy Georges, [facility]
== END 2022-12-25 12:49 | disposition home or self-care (01) ==
LOC: HO.HAP 12:48
PROVIDERS: Visit Provider Internal Medicine
DX: Z13.89 Encounter for screening for other disorder (principal)

== ENCOUNTER 2023-01-25 08:27 | Outpatient (REF) | payer MEDICARE, MEDICAID, SELFPAY ==
[2023-01-25 08:39] LABS: MANUAL DIFF FLAG NO
[2023-01-25 08:50] LABS: Basophils Percent Auto 0.6 % (0-2); Eosinophils Absolute Auto 0.2 X10*3/uL (0.0-0.4); Eosinophils Percent Auto 2.6 % (0-4); Hemoglobin 13.7 g/dl (12.0-16.0); Imm Gran Abs Auto 0.01 X10*3/uL (0.00-0.03); Imm Gran Pct Auto 0.2 % (0.0-0.4); Lymphocytes Absolute Auto 1.5 X10*3/uL (1.2-4.9); Lymphocytes Percent Auto 23.6 % (20-40); Mean Corpuscular HGB Conc 32.6 g/dl (31.0-35.0); Mean Corpuscular Hemoglobin 28.7 pg (27.0-33.0); Mean Corpuscular Volume 87.9 fL (80.0-98.0); Mean Platelet Volume 8.7 fL (9.4-12.3); Monocytes Absolute Auto 0.8 X10*3/uL (0.1-1.2); Monocytes Percent Auto 13.2 % (2-11); Neutrophils Absolute Auto 3.7 x10*3/uL (2.0-8.3); Neutrophils Percent Auto 59.8 % (45-73); Platelet Count 208 X10*3/uL (160-400); Red Blood Count 4.78 X10*6/uL (4.20-5.50); Red Cell Distribution Width 13.3 % (11.0-16.0); White Blood Count 6.2 X10*3/uL (4.8-10.8)
[2023-01-25 09:28] LABS: Appearance Urine Clear; Color Urine Yellow; Glucose Urine UA Negative (Negative); Leukocyte Esterase Urine Trace (Negative); Nitrite Urine Negative (Negative); Specific Gravity - Urine 1.025 (1.005-1.025); UMIC TRIGGER UACC YES; Urine Blood Negative (Negative); Urine Ketones Negative (Negative); Urine Protein Negative (Neg-Trace)
[2023-01-25 09:29] LABS: Alanine Aminotransferase 18 U/L (0-31); Albumin Level 4.1 g/dL (3.5-5.0); Alkaline Phosphatase 91 U/L (39-117); Anion Gap 13 (12-20); Aspartate Amino Transferase 19 U/L (5-31); Bilirubin Total 0.5 mg/dL (0.0-1.0); Blood Urea Nitrogen 21 mg/dL (9-16); Carbon Dioxide 24 mmol/L (22-29); Chloride 107 mmol/L (96-108); Cholesterol 155 mg/dL; Estimated Glomerular Filt Rate > 60; Glucose Fasting 98 mg/dL (60-99); HDL Cholesterol 39 mg/dL; LDL Cholesterol Calculated 105 mg/dl; Potassium 4.4 mmol/L (3.3-5.1); Sodium 140 mmol/L (135-145); Total Protein 6.7 g/dL (6.5-8.0); Triglycerides 59 mg/dL
[2023-01-25 09:34] LABS: Bacteria Urine 1+ (None Seen); Hyaline Casts Urine 0-2 /LPF (0-2); RBC Urine 0-2 /HPF (0-2); WBC Urine 0-5 /HPF (0-5)
[2023-01-25 09:48] LABS: TSH reflex Free T4 2.63 uIU/mL (0.32-4.0); Vitamin D 25-OH Total 48.3 ng/mL (>30)
== END 2023-01-25 08:28 | disposition home or self-care (01) ==
LOC: HO.LAB 08:27
PROVIDERS: PCP Internal Medicine; Visit Provider Internal Medicine
DX: I10 Essential (primary) hypertension (principal); E55.9 Vitamin D deficiency, unspecified; E78.00 Pure hypercholesterolemia, unspecified
CPT/HCPCS: 36415; 80053; 80061; 81001; 82306; 84443; 85025

== ENCOUNTER 2023-04-05 08:23 | Outpatient (REF) | payer MEDICARE, MEDICAID, SELFPAY ==
--- NOTE | ~2023-04-05 | US_ITS ---
EXAMINATION: US RETROPERITONEAL LIMITED (RENAL ONLY) CLINICAL INFORMATION: Nocturia. COMPARISON: October 2018. TECHNIQUE: Real-time examination. FINDINGS: RIGHT KIDNEY: 7.3 x 3.8 x 4.0 cm (SAG x AP x TRV). The kidney is normal in size, contour, and echogenicity. Renal cortical thickness is normal. No hydronephrotic changes. There is an upper lateral echogenic focus suggestive of a stone measuring 3 x 2 x 3 mm. There is a hypoechoic structure near the right kidney in the perinephric region which may reflect focally prominent perinephric fat. LEFT KIDNEY: 9.5 x 4.9 x 4.4 cm (SAG x AP x TRV). The kidney is normal in size, contour, and echogenicity. Renal cortical thickness is normal. No calculi or focal parenchymal lesions. No hydronephrosis. US/US renal BI IMPRESSION: No hydronephrotic changes. Findings suggestive of an upper pole lateral stone of the right kidney. Hypoechoic structure near the right kidney in the perinephric region may reflect focally prominent perinephric fat. CT evaluation as an outpatient when feasible may be helpful toward further clarification.
== END 2023-04-05 08:24 | disposition home or self-care (01) ==
LOC: HO.US 08:23
PROVIDERS: PCP Internal Medicine; Visit Provider Urology
DX: R35.1 Nocturia (principal)
CPT/HCPCS: 76775

== ENCOUNTER 2023-05-07 11:45 | Outpatient (AMB) | payer MEDICARE, MEDICAID, SELFPAY ==
--- NOTE | 2023-05-07 11:47 | A.OFFVIS_ITS ---
Intake Intake Visit Reasons: 6m follow up/US(SET) Intake Note: Pt presents to the office today for a 6 month follow up/US. Urinalysis done. PVR-17 Allergies bee pollen [BEE STINGS] Allergy (Unknown, Verified 05/25/23 15:05) UNKNOWN Medication List - Last Reconciled 06/11/23 by Edgar Cuevas MD [ADULT PULL UPS (large) As directed] betamethasone, augmented 0.05 % 1 appl topical BEDTIME PRN buspirone 5 mg PO BID chlorhexidine gluconate 0.12% mL PO cholecalciferol (vitamin D3) 50 mcg PO DAILY epinephrine (EpiPen 2-Ken) 0.3 mg (0.3 mL) IM Q15M PRN escitalopram oxalate 20 mg PO DAILY fesoterodine ER (Toviaz) 8 mg PO DAILY 90 days fluticasone propionate 50 mcg/actuation 2 sprays intranasal DAILY incontinence pad, liner, disp As directed loratadine (Claritin Liqui-Gel) 10 mg PO DAILY lorazepam 0.5 mg PO BID PRN 30 days HPI HPI Comments History of Present Illness Details Kelly HEATON is a very pleasant female with department for Developmental Delay. They are a patient of Dr Gresham. They are seen in the office today for the following urologic conditions. - urinary urgency frequency Accompanied by caregiver Had been doing well in Toviaz - 8 mg Continue prompted voiding Urinary Urge/Frequency: They present today for followup evaluation of overactive bladder - Toviaz 4 mg daily Symptoms have been present since since late 2016. Current therapy includes fluid restriction. Obstetric history , 0, Para, 0. Current symptoms include frequency Yes nocturia Yes urgency Yes urine loss unsensed, requiring pad use supermarket planning - respond ed to Toviaz dysuria No chills No hematuria No constipation No extremity weakness No The frequency of the symptom(s) occur hourly. Associated medical conditions Alzheimer's disease No Prior testing included 09/27 , an ultrasound - good emptying, normal bladder. Therapeutic plan no changes , behavioral therapy, continue medications PFSH Medical History Allergic rhinitis Depression History of supraventricular tachycardia Impaired fasting glucose Obesity (BMI 30-39.9) Overactive bladder Overweight (BMI 25.0-29.9) Post traumatic stress disorder (PTSD) Pure hypercholesterolemia Surgical History History of ankle surgery History of cardiac radiofrequency ablation Hx of colonoscopy Family History Father Cancer CVD (cardiovascular disease) Mother Breast cancer Hypertension Diabetes Social History Housing: Assisted Living Facility Alcohol intake: never Patient Tobacco Use Status: Never used Tobacco e-Cigarette/Vaping Use: Never Used Second Hand Smoke Exposure: No service: No Current occupational status: unemployed Cognitive needs: No Hearing needs: No Vision needs: No Office Procedures Post Void Residual Post Residual Void Post Void Residual (PVR): 17 [id number] Void Residual by ultrasound Results AMB Urinalysis, Automated UA Leukoctes 0 Agnes/uL Last Edit by Felicitas Ruano MA on 05/07/23 11:55 UA Nitrite Negative Last Edit by Felicitas Ruano MA on 05/07/23 11:55 UA Urobilinogen 0.2 mg/dL Last Edit by Felicitas Ruano MA on 05/07/23 11:55 UA Protein 0 mg/dL Last Edit by Felicitas Ruano MA on 05/07/23 11:55 UA pH 7.5 Last Edit by Felicitas Ruano MA on 05/07/23 11:55 UA Blood 0 Hernesto/uL Last Edit by Felicitas Ruano MA on 05/07/23 11:55 UA Specific Ariel 1.010 Last Edit by Felicitas Ruano MA on 05/07/23 11:55 UA Ketone Positive Last Edit by Felicitas Ruano MA on 05/07/23 11:55 UA Bilirubin 0 mg/dL Last Edit by Felicitas Ruano MA on 05/07/23 11:55 UA Glucose 0 mg/dL Last Edit by Felicitas Ruano MA on 05/07/23 11:55 Results Reviewed Results Reviewed: Laboratory Last Values Urine pH (Auto) 7.5 05/07/23 11:50 Specific Ariel (Auto) 1.010 05/07/23 11:50 Urine Protein (Auto) 0 mg/dL 05/07/23 11:50 Glucose (UA)(Auto) 0 mg/dL 05/07/23 11:50 Urine Ketones (Auto) Positive 05/07/23 11:50 Urine Blood (Auto) 0 Hernesto/uL 05/07/23 11:50 Urine Nitrite (Auto) Negative 05/07/23 11:50 Urine Bilirubin (Auto) 0 mg/dL 05/07/23 11:50 Urine Urobilinogen (Auto) 0.2 mg/dL 05/07/23 11:50 Leukocyte Esterase (Auto) 0 Agnes/uL 05/07/23 11:50 Assessment & Plan Assessment & Plan (1) Overactive bladder: Code(s): N32.81 - Overactive bladder Plan Continue toviaz 8mg Orders: Orders US renal BI 04/05/23 R35.1 - Nocturia AMB Urinalysis Automated 05/07/23 Z13.9 - Encounter for screening, unspecified AMB Post Void Residual by ultrasound 05/07/23 R35.1 - Nocturia Patient Instructions: Imaging studies, laboratory and physical exam results were discussed and reviewed in detail. No major barriers to patient understanding were identified. An opportunity to ask questions regarding the treatment plan was provided. All questions were answered. The patient expressed understanding and agreement with the above treatment plan. The patient is aware they should contact our office by phone for worsening of their current condition or the appearance of new urologic symptoms. Compliance is encouraged with any medications and followup testing that is ordered. It is a privilege to participate in the urologic care of your patient. If you h ave any questions or concerns regarding treatment for the above conditions, or other urologic issues, please do not hesitate to contact me. The office telephone contact is [phone]. This note is constructed using voice recognition software. While every effort has been made to ensure accuracy orientation & mobility specialist errors may have been included. Yours sincerely, Dr Edgar Cuevas MD, [facility] - Urology Providers of Expert, Compassionate Care for the Genitourinary System Coding Level of Care Code Est Pt Level 3 (95344) Diagnoses Overactive bladder N32.81 CPT Codes Post Residual Void - PVR CPT Code: 36211-[id number] Void Residual by ultrasound ([id number])
== END 2023-05-07 12:32 | disposition home or self-care (01) ==
PROVIDERS: Visit Provider Urology
DX: N32.81 Overactive bladder (principal)
CPT/HCPCS: 99213

== ENCOUNTER → 2023-05-07 11:45 | Outpatient (BNVA) | payer MEDICARE, MEDICAID, SELFPAY | PROVIDERS: Visit Provider Urology | DX: N32.81 Overactive bladder (principal) | CPT/HCPCS: 51798; 99212 ==

== ENCOUNTER 2023-05-25 14:22 | Outpatient (AMB) | payer MEDICARE, MEDICAID, SELFPAY ==
[2023-05-25 14:23] VITALS: BP 110/80; PULSE 77; O2SAT 96; BMI 29.5
--- NOTE | 2023-05-25 14:23 | MHC.PC.OV ---
Vital Signs 05/25/23 14:23 Height 5 ft 1 in Weight 156 lb 2 oz BMI 29.5 BP 110/80 Blood Pressure Location Lt brachial Position Sitting Pulse 77 Pulse Source Pulse Oximeter Pulse Oximetry (%) 96 Oxygen Delivery Method Room Air Intake Visit Reasons: 4 month f/u International Marketing Specialist Required: No Accompanied by: Self / Same As Patient Allergies bee pollen [BEE STINGS] Allergy (Unknown, Verified 05/25/23 15:05) UNKNOWN Medication List - Last Reconciled 05/25/23 by Marco Gresham MD [ADULT PULL UPS (large) As directed] betamethasone, augmented 0.05 % 1 appl topical BEDTIME PRN buspirone 5 mg PO BID chlorhexidine gluconate 0.12% mL PO cholecalciferol (vitamin D3) 50 mcg PO DAILY epinephrine (EpiPen 2-Ken) 0.3 mg (0.3 mL) IM Q15M PRN escitalopram oxalate 20 mg PO DAILY fesoterodine ER (Toviaz) 8 mg PO DAILY 90 days fluticasone propionate 50 mcg/actuation 2 sprays intranasal DAILY incontinence pad, liner, disp As directed loratadine (Claritin Liqui-Gel) 10 mg PO DAILY lorazepam 0.5 mg PO BID PRN 30 days Tobacco use date assessed: 05/25/23 Dental Screening Dental Screen Date: 05/25/23 Did you have a dental visit in the last 12 months?: Yes Did you have a dental problem in the last 6 months where you did not have access to dental care?: No Was dental information given to patient?: Patient has dentist HPI 4 month f/u HPI Details Patient comes in today for her follow up visit States that she feels okay She denies any headaches or dizziness Denies any chest pains, no SOB No nausea/vomiting, no abdominal pain No change in bowel habits noted Was not able to get her follow up labs done prior to her visit today [facility] Medical History Allergic rhinitis Depression History of supraventricular tachycardia Impaired fasting glucose Obesity (BMI 30-39.9) Overactive bladder Overweight (BMI 25.0-29.9) Post traumatic stress disorder (PTSD) Pure hypercholesterolemia Surgical History History of ankle surgery History of cardiac radiofrequency ablation Hx of colonoscopy Family History Father Cancer CVD (cardiovascular disease) Mother Breast cancer Hypertension Diabetes Social History Housing: Assisted Living Facility Alcohol intake: never Patient Tobacco Use Status: Never used Tobacco e-Cigarette/Vaping Use: Never Used Second Hand Smoke Exposure: No service: No Current occupational status: unemployed Cognitive needs: No Hearing needs: No Vision needs: No Questionnaire PHQ-9 Over the last 2 weeks, how often have you been bothered by any of the following problems? 1. Little interest or pleasure in doing things: not at all 2. Feeling down, depressed, or hopeless: not at all 3. Trouble falling or staying asleep, or sleeping too much: not at all 4. Feeling tired or having little energy: not at all 5. Poor appetite or overeating: not at all 6. Feeling bad about yourself - or that you are a failure or have let yourself or your family down: not at all 7. Trouble concentrating on things, such as reading the newspaper or watching television: not at all 8. Moving or speaking so slowly that other people could have noticed. Or the opposite - being so fidgety or restless that you have been moving around a lot more than usual: not at all 9. Thoughts that you would be better off or of hurting yourself in some way: not at all Total score: 0 Depression Screening Interpretation: Negative (controlled on Rx) 39630 - PHQ-9 Billing: Yes Source: Developed by Drs. Genaro Serna, Mey Jenkins, Michael Moreau and colleagues, with an educational etta from [employer]. Thrive Questionnaire Date Thrive assessed: 05/25/23 I am a: Patient What is your living situation today?: I have a steady place to live Within the past 12 months, did the food you bought not last and you didn't have the money to get more?: Never true Within the past 12 months, did you worry whether your food would run out before you got money to buy more?: Never true Do you have trouble paying for medicines?: No Do you have trouble getting transportation to medical appointments?: No Do you have trouble paying your heating and electricity bill?: No Do you have trouble taking care of your child, family member or friend?: No Do you have trouble with day-to-day activities such as bathing, preparing meals, shopping, managing finances, etc.?: No Are you currently unemployed and looking for a job?: No Are you interested in more education?: No Please select the resources that you would like help with: None Currently or been in a relationship where the following occur: no concerns reported AUDIT C Alcohol Use Questionnaire (AUDIT-C) 1. How often do you have a drink containing alcohol?: Never 3. How often do you have six or more drinks on one occasion?: Never Total Score: 0 Score Reviewed/Action Taken: Yes MILTON-7 AMB Questionnaire MILTON-7 Date MILTON - 7 assessed: 05/25/23 Feeling nervous, anxious, or on edge: 0 = Not at all Not being able to stop or control worryin = Not at all Worrying too much about different things: 0 = Not at all Trouble relaxin = Not at all Being so restless that it is hard to sit still: 0 = Not at all Becoming easily annoyed or irritable: 0 = Not at all Feeling afraid as if something awful might happen: 0 = Not at all Total MILTON-7 score (0-4 normal; 5-9 mild; 10-14 moderate; 15-21 severe): 0 Source: Developed by Drs. Genaro Serna, Mey Jenkins, Michael Moreau and colleagues, with an educational etta from [employer]. Review of Systems Const Denies fatigue, Denies fever(s), Denies headache(s) and Reports snoring (loud snoring often when sleeping) ENT Details: (+) hard of hearing, per assisted living facility staff Denies dysphagia, Denies dizziness, Denies otalgia, Denies headache(s), Denies neck pain, Denies odynophagia and Denies sore throat Card Denies chest pain, Denies rapid heart rate, Denies irregular heart rhythm, Denies palpitations and Denies dyspnea Resp Denies chest congestion, Denies cough, Denies dyspnea, Reports snoring (loud snoring often when sleeping) and Denies wheezing GI Denies abdominal pain, Denies constipation, Denies dysphagia, Denies heartburn, Denies diarrhea, Denies nausea, Denies odynophagia and Denies vomiting Denies difficulty voiding, Denies dysuria, Reports urinary incontinence (especially at night) and Denies urinary urgency Musc Denies back pain, Denies arthralgias and Denies neck pain Neuro Denies dizziness, Denies headache(s) and Denies paresthesias Psych Denies anxiety Endo Denies fatigue and Denies palpitations Aller/Immun Denies wheezing Physical exam (Primary Care) Vital Signs: Last Vital Signs Pulse 77 05/25/23 14:23 BP 110/80 05/25/23 14:23 Pulse Ox 96 05/25/23 14:23 Oxygen Delivery Method Room Air 05/25/23 14:23 BMI result Body Mass Index 29.5 Tobacco/Smoking Status: Tobacco use Status Tobacco use date assessed 05/25/23 05/25/23 14:28 Patient Tobacco Use Status Never used Tobacco 05/25/23 14:28 e-Cigarette/Vaping Use Never Used 05/25/23 14:28 PHQ-9: PHQ-9 Score PHQ-9: Total score 0 05/25/23 14:28 Depression Screening Interpretation: Negative (controlled on Rx) Thrive Assessment: Date of Thrive Assessment Date Thrive assessed 05/25/23 05/25/23 14:28 Currently or been in a relationship where the following occur: no concerns reported Const General: no acute distress and alert HENMT Ears: TM's normal bilaterally and EAC's normal Throat: Yes posterior oropharynx normal and Yes tonsils normal (no TP congestion) Neck Neck: Yes no lymphadenopathy and Yes supple Resp Auscultation: clear to auscultation bilaterally, no rales and no wheezes Cardio Rate: regular rate Rhythm: regular rhythm Heart sounds: no murmurs GI Palpation (GI): Soft to palpation and nontender Auscultation: normal bowel sounds Back/Spine/Pelvis Thoracic/Lumbar Spine: thoracic and lumbar spine normal to inspection Extrem General: Yes no clubbing, cyanosis or edema Assessment and Plan Assessment & Plan (1) Pure hypercholesterolemia: Code(s): E78.00 - Pure hypercholesterolemia, unspecified Plan: Was not able to get her follow up labs done prior to her appointment today As her cholesterol numbers were good/at goal previously, advised that she can skip getting her labs done this time Reinforced low cholesterol diet Will recheck her fasting lipids and labs in 4 months for follow up (2) Impaired fasting glucose: Code(s): R73.01 - Impaired fasting glucose Plan: Reinforced low calorie diet/exercise as tolerated FBS was normal on her labs done a few months ago; her HgbA1c was also normal at 5.3% when previously checked (3) History of supraventricular tachycardia: Code(s): Z86.79 - Personal history of other diseases of the circulatory system Plan: Has been asymptomatic with no recurrence of symptoms since her ablation years ago in 2009 Follow up with cardiology as scheduled or PRN (4) Allergic rhinitis: Code(s): J30.9 - Allergic rhinitis, unspecified Qualifiers: Allergic rhinitis trigger: unspecified Allergic rhinitis seasonality: unspecified Qualified Code(s): J30.9 - Allergic rhinitis, unspecified Plan: Continue Fluticasone nasal spray QD PRN and OTC Loratadine 10 mg QD PRN (5) Overactive bladder: Code(s): N32.81 - Overactive bladder Plan: Continue Toviaz 4 mg QD Follow up with urology (Dr. Cuevas) as scheduled (6) Loud snoring: Code(s): R06.83 - Snoring Plan: Per assisted living facility staff, patient snores loudly often when she is asleep Patient was evaluated for this at her last visit and scored an 8 on her [place] Sleepiness Scale, which is NORMAL and thereforem there is no indication for a sleep study to be done at this time (7) Post traumatic stress disorder (PTSD): Code(s): F43.10 - Post-traumatic stress disorder, unspecified Plan: Continue Lorazepam 0.5 mg BID PRN Follow up with psychiatry as scheduled (8) Depression: Code(s): F32.9 - Major depressive disorder, single episode, unspecified Qualifiers: Depression Type: major depressive disorder Major depression recurrence: recurrent Active/Remission status: currently active Major depression episode severity: unspecified Qualified Code(s): F33.9 - Major depressive disorder, recurrent, unspecified Plan: Continue Escitalopram 10 mg QD Plan Follow up in 4 months Orders: Orders Comprehensive [place]. Panel Fast 4 Months E78.00 - Pure hypercholesterolemia, unspecified Hemoglobin A1c 4 Months R73.01 - Impaired fasting glucose Lipid Panel 4 Months E78.00 - Pure hypercholesterolemia, unspecified TSH reflex Free T4 4 Months E78.00 - Pure hypercholesterolemia, unspecified Vitamin D 25-OH Total 4 Months E55.9 - Vitamin D deficiency, unspecified Complete Blood Count Auto Diff 4 Months I10 - Essential (primary) hypertension UA CC w/rflx Micro + Cult 4 Months R30.0 - Dysuria Coding Level of Care Code Est Pt Level 3 (80537) Diagnoses Pure hypercholesterolemia E78.00 Impaired fasting glucose R73.01 History of supraventricular tachycardia Z86.79 Allergic rhinitis J30.9 Allergic rhinitis trigger: unspecified Allergic rhinitis seasonality: unspecified Overactive bladder N32.81 Loud snoring R06.83 Post traumatic stress disorder (PTSD) F43.10 Depression F33.9 Depression Type: major depressive disorder Major depression recurrence: recurrent Active/Remission status: currently active Major depression episode severity: unspecified
== END 2023-05-25 15:10 | disposition home or self-care (01) ==
PROVIDERS: Visit Provider Internal Medicine
DX: E78.00 Pure hypercholesterolemia, unspecified (principal); F43.10 Post-traumatic stress disorder, unspecified; Z86.79 Personal history of other diseases of the circulatory system; F33.9 Major depressive disorder, recurrent, unspecified; R73.01 Impaired fasting glucose; J30.9 Allergic rhinitis, unspecified; N32.81 Overactive bladder; R06.83 Snoring
CPT/HCPCS: 99213

== ENCOUNTER 2023-09-20 11:52 | Outpatient (REF) | payer MEDICARE, MEDICAID, SELFPAY ==
[2023-09-20 12:14] LABS: MANUAL DIFF FLAG NO
[2023-09-20 12:38] LABS: Basophils Absolute Auto 0.1 X10*3/uL (0.0-0.2); Basophils Percent Auto 0.7 % (0-2); Eosinophils Absolute Auto 0.1 X10*3/uL (0.0-0.4); Eosinophils Percent Auto 0.8 % (0-4); Hemoglobin 14.5 g/dl (12.0-16.0); Imm Gran Abs Auto 0.02 X10*3/uL (0.00-0.03); Imm Gran Pct Auto 0.3 % (0.0-0.4); Lymphocytes Percent Auto 27.5 % (20-40); Mean Corpuscular HGB Conc 32.2 g/dl (31.0-35.0); Mean Corpuscular Hemoglobin 28.8 pg (27.0-33.0); Mean Corpuscular Volume 89.5 fL (80.0-98.0); Mean Platelet Volume 8.9 fL (9.4-12.3); Monocytes Absolute Auto 0.4 X10*3/uL (0.1-1.2); Monocytes Percent Auto 5.7 % (2-11); Neutrophils Absolute Auto 4.6 x10*3/uL (2.0-8.3); Platelet Count 263 X10*3/uL (160-400); Red Blood Count 5.03 X10*6/uL (4.20-5.50); Red Cell Distribution Width 12.7 % (11.0-16.0); White Blood Count 7.1 X10*3/uL (4.8-10.8)
[2023-09-20 12:44] LABS: Estimated Average Glucose 111 mg/dL; Hemoglobin A1c % 5.5 % (<6.0)
[2023-09-20 13:14] LABS: Appearance Urine Clear; Color Urine Yellow; Glucose Urine UA Negative (Negative); Leukocyte Esterase Urine Negative (Negative); Nitrite Urine Negative (Negative); PH 8.5 (5.0-9.0); Urine Blood Negative (Negative); Urine Ketones Negative (Negative); Urine Protein Negative (Neg-Trace)
[2023-09-20 13:24] LABS: Alanine Aminotransferase 18 U/L (0-31); Albumin Level 4.3 g/dL (3.5-5.0); Alkaline Phosphatase 95 U/L (39-117); Anion Gap 11 (12-20); Aspartate Amino Transferase 19 U/L (5-31); Bilirubin Total 0.4 mg/dL (0.0-1.0); Blood Urea Nitrogen 22 mg/dL (9-16); Calcium 9.8 mg/dL (8.4-10.2); Carbon Dioxide 28 mmol/L (22-29); Chloride 106 mmol/L (96-108); Cholesterol 185 mg/dL (<200); Estimated Glomerular Filt Rate > 60; Glucose Random 98 mg/dL (60-115); HDL Cholesterol 48 mg/dL (>40); LDL Cholesterol Calculated 124 mg/dL (<100); Potassium 4.1 mmol/L (3.3-5.1); Sodium 141 mmol/L (135-145); Total Protein 7.4 g/dL (6.5-8.0); Triglycerides 66 mg/dL (<150)
[2023-09-20 13:41] LABS: TSH reflex Free T4 2.56 uIU/mL (0.32-4.0); Vitamin D 25-OH Total 57.9 ng/mL (>30)
== END 2023-09-20 11:53 | disposition home or self-care (01) ==
LOC: HO.LAB 11:52
PROVIDERS: PCP Internal Medicine; Visit Provider Internal Medicine
DX: Z13.89 Encounter for screening for other disorder (principal)
CPT/HCPCS: 36415; 80053; 80061; 81003; 82306; 83036; 84443; 85025

== ENCOUNTER 2023-09-28 08:01 | Outpatient (AMB) | payer MEDICARE, MEDICAID, SELFPAY ==
--- NOTE | 2023-09-28 08:03 | A.OFFVIS_ITS ---
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 She is doing well with no concerns. Attempting to eat a healthy diet with calcium and vitamin D and stays active with exercise. Currently not sexually active. Denies any vaginal dryness or irritation. Wearing a diaper for incontinence. Last pap smear; 2021. Last mammogram; 2021. Colonoscopy is UTD. Denies any family history of breast, ovarian or colon cancer. [facility] Medical History Overweight (BMI 25.0-29.9) Obesity (BMI 30-39.9) Depression Post traumatic stress disorder (PTSD) Overactive bladder Allergic rhinitis History of supraventricular tachycardia Impaired fasting glucose Pure hypercholesterolemia Surgical History Hx of colonoscopy History of cardiac radiofrequency ablation History of ankle surgery Family History Father Cancer CVD (cardiovascular disease) Mother Breast cancer Hypertension Diabetes Social History Housing: Assisted Living Facility Alcohol intake: never Patient Tobacco Use Status: Never used Tobacco e-Cigarette/Vaping Use: Never Used Second Hand Smoke Exposure: No service: No Current occupational status: unemployed Cognitive needs: No Hearing needs: No Vision needs: No Female Reproductive History Menstrual Menopause type: natural Total pregnancies: 0 Date of last pap smear: 06/08/22 (neg pap and hpv) Date of Mammogram: 05/07/22 (Birad 1) Review of Systems Const All systems reviewed & are unremarkable except as noted in HPI and below Reports as per HPI Eyes Reports no additional complaints ENT Reports no additional complaints Card Reports no additional complaints Resp Reports no additional complaints GI Reports as per HPI and Reports no additional complaints Reports as per HPI Musc Reports no additional complaints Skin/Breast Reports as per HPI Neuro Reports no additional complaints Psych Reports no additional complaints Endo Reports no additional complaints Quentin/Lymph Reports no additional complaints Aller/Immun Reports no additional complaints Physical Exam Vital Signs: Last Vital Signs BP 90/62 09/28/23 08:05 BMI result Body Mass Index 29.5 Const General: cooperative, healthy appearing, no acute distress, well developed and alert Orientation/consciousness: patient oriented x3 HEENT Head: Yes normal to inspection Eyes General: appearance normal, both eyes and all related structures Neck Neck: Yes normal visual inspection Thyroid: Thyroid normal Chest Chest palpation & inspection: normal inspection of the chest and other (no puckering, dimpling, peau de orange, retraction, discharge, masses) Breast/axilla inspection: normal inspection of the breasts Breast/axilla palpation: normal palpation of the breasts Resp Effort & Inspection: normal respiratory effort GI Inspection: Yes normal to inspection Palpation (GI): Soft to palpation Rectal Exam - Female: deferred Other: Vulvar lichen changes with loss of architecture, narrowing of the vaginal inlet, thickened hypopigmented skin from clitoris to anus bilateral labia, no excoriations or lesions. Perianal redness consistent with diaper rash. General: Yes bladder normal to palpation External Female Exam: normal external appearance and normal appearance of the urethra Speculum Exam - Vagina: normal appearance of the vagina, normal palpation, normal vaginal discharge and vagina atrophic (Moderate to severe) Speculum Exam - Cervix: normal appearance of the cervix and normal palpation Bimanual exam- vagina & uterus: normal bimanual exam, normal palpation, uterine size normal, bladder normal to palpation, normal palpation and non-tender Bimanual Exam- Adnexa, other: no masses Skin General skin exam: no rashes or lesions noted Rashes: no rashes Neuro General: patient oriented x3 Cognition (Neuro): normal cognition Extrem General: Yes normal to inspection Psych Attitude: cooperative Thought process: Normal thought process present Assessment & Plan Assessment & Plan (1) Encounter for well woman exam with routine gynecological exam: Code(s): Z01.419 - Encounter for gynecological examination (general) (routine) without abnormal findings (2) Lichen sclerosus: Code(s): L90.0 - Lichen sclerosus et atrophicus (3) Vaginal atrophy: Code(s): N95.2 - Postmenopausal atrophic vaginitis Plan Discussed: Current recommendations for pap smears per ASCCP guidelines. Breast awareness, periodic self breast exams and yearly mammogram. Maintain a healthy lifestyle, well balanced diet including Calcium 1,200 mg and Vitamin D 600 IU daily, and routine exercise. It is uncertain if she is adequately using her medication for the vulval lichen sclerosus. Instructions reviewed today I will have her come back in 3 weeks with her care provider if there is any areas concerning will do a skin biopsy at the next visit. Contact the office with any postmenopausal bleeding. Vaginal atrophy normal changes of aging reviewed. All of her questions and concerns were addressed to the best of my ability. 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 This note is constructed using voice recognition software. While every effort has been made to ensure accuracy, utility worker forge errors may have been included. Orders: Orders MM tomosynthesis screening BI Today Z12.31 - Encounter for screening mammogram for malignant neoplasm of breast Medications: Changed From betamethasone, augmented 0.05 % apply to the area at bedtime a thin coat, for two weeks, then every other day for two weeks and then twice a week 1 appl topical BEDTIME PRN 45 grams 1RF allergic reaction To betamethasone, augmented 0.05 % apply to the area at bedtime a thin coat, for two weeks, then every other day for two weeks and then twice a week 1 appl topical BEDTIME 45 grams 1RF allergic reaction Coding Level of Care Code Est Pt Prev Care 40-64y(18302) Diagnoses Encounter for well woman exam with routine gynecological exam Z01.419 Lichen sclerosus L90.0 Vaginal atrophy N95.2
[2023-09-28 08:05] VITALS: BP 90/62; BMI 29.5
== END 2023-09-28 08:38 | disposition home or self-care (01) ==
PROVIDERS: PCP Internal Medicine; Visit Provider Advanced Practice Midwife
DX: Z01.419 Encounter for gynecological examination (general) (routine) without abnormal findings (principal); L90.0 Lichen sclerosus et atrophicus; N95.2 Postmenopausal atrophic vaginitis
CPT/HCPCS: 99213; G0101

== ENCOUNTER → 2023-09-28 08:01 | Outpatient (BNVA) | payer MEDICARE, MEDICAID, SELFPAY | PROVIDERS: Visit Provider Advanced Practice Midwife | DX: Z01.419 Encounter for gynecological examination (general) (routine) without abnormal findings (principal); N95.2 Postmenopausal atrophic vaginitis; L90.0 Lichen sclerosus et atrophicus | CPT/HCPCS: 99212; G0101 ==

== ENCOUNTER 2023-10-06 09:01 | Outpatient (AMB) | payer MEDICARE, MEDICAID, SELFPAY ==
--- NOTE | 2023-10-06 09:14 | A.OFFPC_ITS ---
Vital Signs 10/06/23 09:15 Height 5 ft 1 in Weight 157 lb 8 oz BMI 29.8 BP 130/80 Blood Pressure Location Lt brachial Position Sitting Pulse 78 Pulse Source Pulse Oximeter Pulse Oximetry (%) 95 Oxygen Delivery Method Room Air Intake Visit Reasons: Annual Exam Intake Note: Patient is here today for a physical. Director Federal Required: No Balance Wheel Facer: Not Required per policy Accompanied by: Self / Same As Patient Allergies bee pollen [BEE STINGS] Allergy (Unknown, Verified 10/06/23 09:59) UNKNOWN Medication List - Last Reconciled 10/06/23 by Marco Gresham MD [ADULT PULL UPS (large) As directed] betamethasone, augmented 0.05 % 1 appl topical BEDTIME buspirone 5 mg PO BID cholecalciferol (vitamin D3) 50 mcg PO DAILY epinephrine (EpiPen 2-Ken) 0.3 mg (0.3 mL) IM Q15M PRN escitalopram oxalate 20 mg PO DAILY fesoterodine ER (Toviaz) 8 mg PO DAILY 90 days fluticasone propionate 50 mcg/actuation 2 sprays intranasal DAILY incontinence pad, liner, disp As directed loratadine (Claritin Liqui-Gel) 10 mg PO DAILY lorazepam 0.5 mg PO BID PRN 30 days Tobacco use date assessed: 09/27/23 Dental Screening Dental Screen Date: 10/06/23 Did you have a dental visit in the last 12 months?: Yes Did you have a dental problem in the last 6 months where you did not have access to dental care?: No Was dental information given to patient?: Patient has dentist HPI Annual Exam HPI Details Patient comes in today for her annual physical examination States that she feels okay She denies any headaches or dizziness Denies any chest pains, no SOB No nausea/vomiting, no abdominal pain No change in bowel habits noted Denies any acute urinary symptoms Had her follow up labs done a couple of weeks ago - to discuss her results Had her screening colonoscopy last done in 02/2022 - normal; recommended to get repeat colonoscopy done in 10 yrs (2031) She has a follow up appointment with gynecology next month (October 2023); is currently overdue for her annual screening mammogram [facility] Medical History (Updated 10/06/23 @ 10:09 by Marco Gresham MD) Overweight (BMI 25.0-29.9) Depression Post traumatic stress disorder (PTSD) Overactive bladder Allergic rhinitis History of supraventricular tachycardia Impaired fasting glucose Pure hypercholesterolemia Surgical History Hx of colonoscopy History of cardiac radiofrequency ablation History of ankle surgery Family History Father Cancer CVD (cardiovascular disease) Mother Breast cancer Hypertension Diabetes Social History Housing: Assisted Living Facility Alcohol intake: never Patient Tobacco Use Status: Never used Tobacco e-Cigarette/Vaping Use: Never Used Second Hand Smoke Exposure: No service: No Current occupational status: unemployed Cognitive needs: No Hearing needs: Yes (hearing aide) Vision needs: Yes (glasses) Questionnaire Thrive Questionnaire Date Thrive assessed: 09/27/23 MITLON-7 AMB Questionnaire MILTON-7 Date MILTON - 7 assessed: 09/27/23 Source: Developed by Drs. Genaro Serna, Mey Jenkins, Michael Moreua and colleagues, with an educational etta from [employer]. Review of Systems Const Denies fatigue, Denies fever(s), Denies headache(s) and Reports snoring (loud snoring often when sleeping) Eyes Denies blurry vision, Denies change in vision, Denies irritation and Denies itchy eyes ENT Details: (+) hard of hearing Denies dysphagia, Denies dizziness, Denies otalgia, Denies headache(s), Denies neck pain, Denies odynophagia and Denies sore throat Card Denies chest pain, Denies rapid heart rate, Denies irregular heart rhythm, Denies palpitations and Denies dyspnea Resp Denies chest congestion, Denies cough, Denies dyspnea, Reports snoring (loud snoring often when sleeping) and Denies wheezing GI Denies abdominal pain, Denies bloating, Denies constipation, Denies dysphagia, Denies heartburn, Denies diarrhea, Denies nausea, Denies odynophagia and Denies vomiting Denies difficulty voiding, Denies dysuria, Reports urinary incontinence (especially at night) and Denies urinary urgency Musc Denies back pain, Denies arthralgias, Denies joint swelling, Denies muscle weakness and Denies neck pain Skin/Breast Denies breast pain, Denies breast mass, Denies change in pigmentation, Denies lesions, Denies rash and Denies unusual bruising Neuro Denies dizziness and Denies headache(s) Psych Denies anxiety and Denies depression Endo Denies fatigue and Denies palpitations Quentin/Lymph Denies easy bruising Aller/Immun Denies itchy eyes and Denies wheezing Physical exam (Primary Care) Vital Signs: Last Vital Signs Pulse 78 10/06/23 09:15 BP 130/80 10/06/23 09:15 Pulse Ox 95 10/06/23 09:15 Oxygen Delivery Method Room Air 10/06/23 09:15 BMI result Body Mass Index 29.8 Tobacco/Smoking Status: Tobacco use Status Tobacco use date assessed 09/27/23 10/06/23 09:18 Patient Tobacco Use Status Never used Tobacco 10/06/23 09:18 e-Cigarette/Vaping Use Never Used 10/06/23 09:18 Thrive Assessment: Date of Thrive Assessment Date Thrive assessed 09/27/23 10/06/23 09:18 Const General: no acute distress, alert and awake Orientation/consciousness: patient oriented x3 HENMT Head: Yes normocephalic and Yes atraumatic Ears: external ears normal, TM's normal bilaterally and EAC's normal General nose exam: No nasal discharge present Face and sinus: Yes normal facial exam and Yes sinuses nontender Teeth and gingiva: dentition normal Throat: Yes posterior oropharynx normal and Yes tonsils normal (no TP congestion) Eyes Eyelids: Yes eyelids normal Conjunctivae: conjunctivae normal Pupils: Equal, round and reactive pupils present EOM: EOMs intact bilaterally Neck Neck: Yes no lymphadenopathy and Yes supple Thyroid: Thyroid normal Resp Auscultation: clear to auscultation bilaterally, no rales and no wheezes Cardio Rate: regular rate Rhythm: regular rhythm Heart sounds: no murmurs GI Palpation (GI): Soft to palpation, nontender and No hepatosplenomegaly present Auscultation: normal bowel sounds General: Yes no CVA tenderness Back/Spine/Pelvis Back: no CVA tenderness Thoracic/Lumbar Spine: thoracic and lumbar spine normal to inspection Skin Lesions: no lesions Rashes: no rashes Neuro General: patient oriented x3, moves all extremities, no focal motor deficits and CN's II-XI intact bilaterally Cranial nerves: Yes Equal, round and reactive pupils present Cognition (Neuro): normal cognition Gait exam (Neuro): Normal gait present Extrem General: Yes no clubbing, cyanosis or edema Results Reviewed Results Reviewed: Laboratory Tests 09/20/23 09/20/23 09/20/23 12:09 12:09 12:13 WBC 7.1 Hgb 14.5 Hct 45.0 Plt Count 263 D Sodium 141 Potassium 4.1 Creatinine 0.93 Estimated GFR > 60 Random Glucose 98 Hemoglobin A1c % 5.5 Calcium 9.8 D AST 19 ALT 18 Triglycerides 66 Cholesterol LDL Cholesterol, Calc 124 H HDL Cholesterol 48 25-OH Vitamin D Total 57.9 TSH 2.56 Ur Specific [place] 1.020 Urine Protein Negative Urine Glucose (UA) Negative Urine Blood Negative Urine Nitrite Negative 09/20/23 12:13 WBC Hgb Hct Plt Count Sodium Potassium Creatinine Estimated GFR Random Glucose Hemoglobin A1c % Calcium AST ALT Triglycerides Cholesterol 185 LDL Cholesterol, Calc HDL Cholesterol 25-OH Vitamin D Total TSH Ur Specific [place] Urine Protein Urine Glucose (UA) Urine Blood Urine Nitrite Assessment and Plan Assessment & Plan (1) Annual physical exam: Code(s): Z00.00 - Encounter for general adult medical examination without abnormal findings Plan: Results of her labs done a couple of weeks ago reviewed and discussed with patient She is up-to-date with her colon cancer and cervical cancer screening/gynecology exam; is due for her annual mammogram - will order (2) Pure hypercholesterolemia: Code(s): E78.00 - Pure hypercholesterolemia, unspecified Plan: Patient is cautioned that her LDL cholesterol has increased from previous and is now at 124 mg/dl Reinforced low cholesterol diet Will recheck her labs and fasting lipids in 4 months for follow up - these have been ordered recently (3) Impaired fasting glucose: Code(s): R73.01 - Impaired fasting glucose Plan: FBS was normal at 98 mg/dl on her labs done a couple of weeks ago; her HgbA1c was also normal at 5.5% (was at 5.3% last year) Reinforced low calorie diet/exercise as tolerated (4) History of supraventricular tachycardia: Code(s): Z86.79 - Personal history of other diseases of the circulatory system Plan: She has been asymptomatic with no recurrence of symptoms since her ablation years ago in 2009 Follow up with cardiology as scheduled or PRN (5) Allergic rhinitis: Code(s): J30.9 - Allergic rhinitis, unspecified Qualifiers: Allergic rhinitis trigger: unspecified Allergic rhinitis seasonality: unspecified Qualified Code(s): J30.9 - Allergic rhinitis, unspecified Plan: Continue Fluticasone nasal spray QD PRN and OTC Loratadine 10 mg QD PRN (6) Overactive bladder: Code(s): N32.81 - Overactive bladder Plan: Continue Toviaz 4 mg QD Follow up with urology (Dr. Cuevas) as scheduled (7) Loud snoring: Code(s): R06.83 - Snoring Plan: Per assisted living facility staff a few months ago, patient snores loudly often when she is asleep and they were concerned that she may have sleep apnea Patient was evaluated for this at her previous visit and scored 8 on her [place] Sleepiness Scale, which is NORMAL - they have been advised that there is no indication for a sleep study to be done at this time (8) Post traumatic stress disorder (PTSD): Code(s): F43.10 - Post-traumatic stress disorder, unspecified Plan: Continue Lorazepam 0.5 mg BID PRN Follow up with psychiatry as scheduled (9) Depression: Code(s): F32.9 - Major depressive disorder, single episode, unspecified Qualifiers: Depression Type: major depressive disorder Major depression recurrence: recurrent Active/Remission status: currently active Major depression episode severity: unspecified Qualified Code(s): F33.9 - Major depressive disorder, recurrent, unspecified Plan: Continue Escitalopram 20 mg QD Plan Follow up in 4 months Orders: Orders MM tomosynthesis screening BI Today Z12.31 - Encounter for screening mammogram for malignant neoplasm of breast Coding Level of Care Code Est Pt Prev Care 40-64y(53186) Diagnoses Annual physical exam Z00.00 Pure hypercholesterolemia E78.00 Impaired fasting glucose R73.01 History of supraventricular tachycardia Z86.79 Allergic rhinitis, unspecified seasonality, unspecified trigger J30.9 Allergic rhinitis trigger: unspecified Allergic rhinitis seasonality: unspecified Overactive bladder N32.81 Loud snoring R06.83 Post traumatic stress disorder (PTSD) F43.10 Episode of recurrent major depressive disorder, unspecified depression episode severity F33.9 Depression Type: major depressive disorder Major depression recurrence: recurrent Active/Remission status: currently active Major depression episode severity: unspecified
[2023-10-06 09:15] VITALS: BP 130/80; PULSE 78; O2SAT 95; BMI 29.8
== END 2023-10-06 10:05 | disposition home or self-care (01) ==
PROVIDERS: Visit Provider Internal Medicine
DX: Z00.00 Encounter for general adult medical examination without abnormal findings (principal); E78.00 Pure hypercholesterolemia, unspecified; F33.9 Major depressive disorder, recurrent, unspecified; R73.01 Impaired fasting glucose; Z86.79 Personal history of other diseases of the circulatory system; J30.9 Allergic rhinitis, unspecified; N32.81 Overactive bladder; R06.83 Snoring; F43.10 Post-traumatic stress disorder, unspecified
CPT/HCPCS: 99396

== ENCOUNTER 2023-10-21 07:50 | Outpatient (AMB) | payer MEDICARE, MEDICAID, SELFPAY ==
--- NOTE | 2023-10-21 07:51 | MHC.OFFVIS ---
Intake Vital Signs 10/21/23 07:58 Height 5 ft 1 in Weight 156 lb 8.451 oz BMI 29.6 BP 108/66 Intake Visit Reasons: 3 weeks follow up/poss vulvar bx Lifestyle Consultant Required: No Information Interpreted: non-clinical & clinical Light Rail Vehicle Operator: Light Rail Vehicle Operator Present Accompanied by: Guardian Allergies bee pollen [BEE STINGS] Allergy (Unknown, Verified 10/21/23 07:59) UNKNOWN Post menopausal: Yes HPI HPI Comments History of Present Illness Details Patient is here for follow-up skin check after being treated initially with some topical corticosteroid ointment for lichen sclerosis skin changes. She presents with Lorena Bowden her caregiver whom she lives with through ([facility]) [employer] [facility]. Kelly reports the itching has much improved. Lorena admits she may not have been using it adequately in the beginning, but has been doing well in the recent weeks. Patient uses a diaper for incontinence. [facility] Medical History (Updated 10/21/23 @ 08:26 by Maritza Jason CNM) Lichen sclerosus et atrophicus Overweight (BMI 25.0-29.9) Depression Post traumatic stress disorder (PTSD) Overactive bladder Allergic rhinitis History of supraventricular tachycardia Impaired fasting glucose Pure hypercholesterolemia Surgical History Hx of colonoscopy History of cardiac radiofrequency ablation History of ankle surgery Family History Father Cancer CVD (cardiovascular disease) Mother Breast cancer Hypertension Diabetes Social History (Updated 10/21/23 @ 08:28 by Maritza Jason CNM) Household Members: Caregiver Household Members Other:: Lives w/Lorena Bowden ([facility]) [employer]. Alcohol intake: never Patient Tobacco Use Status: Never used Tobacco e-Cigarette/Vaping Use: Never Used Second Hand Smoke Exposure: No service: No Current occupational status: unemployed Cognitive needs: No Hearing needs: Yes (hearing aide) Vision needs: Yes (glasses) Physical Exam Vital Signs: Last Vital Signs BP 108/66 10/21/23 07:58 BMI result Body Mass Index 29.6 Const General: cooperative, healthy appearing, no acute distress and alert Other: Hypopigmentation of the vulva from the clitoris extending to the perineum, bilateral labia's, no lesions, crack,fissures, excoriations. Improvement since last visit. Loss of architecture and atrophy. Assessment & Plan Assessment & Plan (1) Lichen sclerosus: Code(s): L90.0 - Lichen sclerosus et atrophicus Plan Reviewed: use of medication-will continue for several weeks 3 times a week, reviewed hand written diagram of where to apply the medication. Warnings and when to return to the office sooner. Discussed progression of lichen sclerosis if untreated, possible vulvar cancer. Defer biopsy today due to much improvement in response to medication. Plan to recheck the skin in 6-8 weeks or sooner if needed, then taper to maintenance. All of her questions and concerns were addressed to the best of my ability and shared decision making. She is agreeable to the plan of care. Coding Level of Care Code Est Pt Level 3 (01979) Diagnoses Lichen sclerosus L90.0
[2023-10-21 07:58] VITALS: BP 108/66; BMI 29.6
== END 2023-10-21 08:20 | disposition home or self-care (01) ==
PROVIDERS: PCP Internal Medicine; Visit Provider Advanced Practice Midwife
DX: L90.0 Lichen sclerosus et atrophicus (principal)
CPT/HCPCS: 99213

== ENCOUNTER → 2023-10-21 07:50 | Outpatient (BNVA) | payer MEDICARE, MEDICAID, SELFPAY | PROVIDERS: PCP Internal Medicine; Visit Provider Advanced Practice Midwife | DX: L90.0 Lichen sclerosus et atrophicus (principal) | CPT/HCPCS: 99212 ==

== ENCOUNTER 2023-11-05 08:44 | Outpatient (AMB) | payer MEDICARE, MEDICAID, SELFPAY ==
--- NOTE | 2023-11-05 08:45 | A.OFFVIS_ITS ---
Intake Intake Visit Reasons: 6m/PVR Intake Note: Patient is Present for Follow Up PVR Urology Medication: Toviaz Antibiotic Allergies: None Blood Thinners: None PVR: 0 Patient states the toviaz does help. She doesn't have Leakage during the day she can hold her urine during the day, during the night patient states that she will need to have under pull ups on Allergies bee pollen [BEE STINGS] Allergy (Unknown, Verified 11/05/23 08:51) UNKNOWN Medication List - Last Reconciled 11/05/23 by Edgar Cuevas MD [ADULT PULL UPS (large) As directed] betamethasone, augmented 0.05 % 1 appl topical BEDTIME buspirone 5 mg PO BID cholecalciferol (vitamin D3) 50 mcg PO DAILY epinephrine (EpiPen 2-Ken) 0.3 mg (0.3 mL) IM Q15M PRN escitalopram oxalate 20 mg PO DAILY fesoterodine ER (Toviaz) 8 mg PO DAILY 90 days fluticasone propionate 50 mcg/actuation 2 sprays intranasal DAILY incontinence pad, liner, disp As directed loratadine (Claritin Liqui-Gel) 10 mg PO DAILY lorazepam 0.5 mg PO BID PRN 30 days HPI HPI Comments History of Present Illness Details Kelly HEATON is a very pleasant female with department for Developmental Delay. She is a patient of Dr Gresham. She is seen the following urologic conditions. - urinary urgency frequency - overactive bladder Continued good response to Toviaz 8 mg On prompted voiding Minimal accidents during the day Occasional night accidents but wearing pull-ups Urinary Urge/Frequency: They present today for followup evaluation of overactive bladder - Toviaz 4 mg daily Symptoms have been present since since late 2016. Current therapy includes fluid restriction. Obstetric history , 0, Para, 0. Current symptoms include frequency Yes nocturia Yes urgency Yes urine loss unsensed, requiring pad use Generateet planning - res ponded to Toviaz dysuria No chills No hematuria No constipation No extremity weakness No The frequency of the symptom(s) occur hourly. Associated medical conditions Alzheimer's disease No Prior testing included 09/27 , an ultrasound - good emptying, normal bladder. Therapeutic plan no changes , behavioral therapy, continue medications [facility] Medical History (Updated 10/21/23 @ 08:26 by Maritza Jason CNM) Lichen sclerosus et atrophicus Overweight (BMI 25.0-29.9) Depression Post traumatic stress disorder (PTSD) Overactive bladder Allergic rhinitis History of supraventricular tachycardia Impaired fasting glucose Pure hypercholesterolemia Surgical History Hx of colonoscopy History of cardiac radiofrequency ablation History of ankle surgery Family History Father Cancer CVD (cardiovascular disease) Mother Breast cancer Hypertension Diabetes Social History (Updated 10/21/23 @ 08:28 by Maritza Jason CNM) Household Members: Caregiver Household Members Other:: Lives w/Lorena Bowden ([facility]) [employer]. Alcohol intake: never Patient Tobacco Use Status: Never used Tobacco e-Cigarette/Vaping Use: Never Used Second Hand Smoke Exposure: No service: No Current occupational status: unemployed Cognitive needs: No Hearing needs: Yes (hearing aide) Vision needs: Yes (glasses) Review of Systems Const Denies chills and Denies fever(s) Card Reports no additional complaints and Denies syncope Resp Denies cough GI Denies abdominal pain and Denies heartburn Reports as per HPI and Denies change in libido Neuro Denies syncope Psych Denies change in libido Endo Denies change in libido Physical Exam Const General: cooperative, healthy appearing, comfortable and no acute distress Orientation/consciousness: patient oriented x3 HEENT Face and sinus: Yes normal facial exam Mouth: moist mucous membranes Neck Neck: Yes normal visual inspection, Yes full ROM and Yes trachea midline Chest Chest palpation & inspection: normal inspection of the chest Resp Effort & Inspection: normal respiratory effort, able to speak in complete sentences and no respiratory distress GI Inspection: Yes normal to inspection Back/Spine/Pelvis Cervical Spine: normal cervical lordosis Thoracic/Lumbar Spine: thoracic and lumbar spine normal to inspection Skin General skin exam: no rashes or lesions noted Neuro General: patient oriented x3, gait normal, tone normal and moves all extremities Extrem General: Yes normal to inspection and Yes capillary refill normal Office Procedures Post Void Residual Post Residual Void Post Void Residual (PVR): 0 00147-Fkip Void Residual by ultrasound Assessment & Plan Assessment & Plan (1) Nocturia: Code(s): R35.1 - Nocturia (2) Overactive bladder: Code(s): N32.81 - Overactive bladder Plan Twelve month follow-up Orders: Orders AMB Post Void Residual by ultrasound Today N32.81 - Overactive bladder Medications: Refilled fesoterodine ER (Toviaz) 8 mg PO DAILY 90 days 90 tabs 3RF N32.81 - Overactive bladder Patient Instructions: Imaging studies, laboratory and physical exam results were discussed and reviewed in detail. No major barriers to patient understanding were identified. An opportunity to ask questions regarding the treatment plan was provided. All questions were answered. The patient expressed understanding and agreement with the above treatment plan. The patient is aware they should contact our office by phone for worsening of their current condition or the appearance of new urologic symptoms. Compliance is encouraged with any medications and followup testing that is ordered. It is a privilege to participate in the urologic care of your patient. If you have any questions or concerns regarding treatment for the above conditions, or other urologic issues, please do not hesitate to contact me. The office telephone contact is [phone]. This note is constructed using voice recognition software. While every effort has been made to ensure accuracy respiratory coordinator errors may have been included. Yours sincerely, Dr Edgar Cuevas MD, [facility] - Urology Providers of Expert, Compassionate Care for the Genitourinary System Coding Level of Care Code Est Pt Level 3 (25470) Diagnoses Nocturia R35.1 Overactive bladder N32.81 CPT Codes Post Residual Void - PVR CPT Code: 15141-Pouy Void Residual by ultrasound ([id number])
== END 2023-11-05 09:10 | disposition home or self-care (01) ==
LOC: HO.HUSH 08:44
PROVIDERS: PCP Internal Medicine; Visit Provider Urology
DX: R35.1 Nocturia (principal); N32.81 Overactive bladder
CPT/HCPCS: 99213

== ENCOUNTER → 2023-11-05 09:00 | Outpatient (BNV) | payer MEDICARE, MEDICAID, SELFPAY | PROVIDERS: PCP Internal Medicine; Visit Provider Radiology Diagnostic Radiology | DX: Z12.31 Encounter for screening mammogram for malignant neoplasm of breast (principal) | CPT/HCPCS: 77063; 77067 ==

== ENCOUNTER 2023-11-05 09:22 | Outpatient (REF) | payer MEDICARE, MEDICAID, SELFPAY | END 2023-11-05 09:23 | disposition home or self-care (01) | LOC: HO.MAMMO 09:22 | PROVIDERS: PCP Internal Medicine; Visit Provider Internal Medicine | DX: Z12.31 Encounter for screening mammogram for malignant neoplasm of breast (principal); R35.1 Nocturia; N32.81 Overactive bladder | CPT/HCPCS: 51798; 77063; 77067; 99212 ==

== ENCOUNTER 2023-12-14 15:19 | Outpatient (REF) | payer MEDICARE, MEDICAID, SELFPAY | END 2023-12-14 15:20 | disposition home or self-care (01) | LOC: HO.LAB 15:19 | PROVIDERS: PCP Internal Medicine; Visit Provider Advanced Practice Midwife | DX: L90.0 Lichen sclerosus et atrophicus (principal) | CPT/HCPCS: 56605; 88305; 88312 ==

== ENCOUNTER 2023-12-14 15:19 | Outpatient (AMB) | payer MEDICARE, MEDICAID, SELFPAY ==
[2023-12-14 15:20] VITALS: BP 100/64; BMI 29.5
--- NOTE | 2023-12-14 15:20 | A.OFFVIS_ITS ---
Intake Vital Signs 3 12/14/23 15:20 Height 5 ft 1 in Weight 156 lb BMI 29.5 BP 100/64 Intake Visit Reasons: Skin check Box Spring Frame Builder: Box Spring Frame Builder Present (Polina) Accompanied by: Guardian Allergies bee pollen [BEE STINGS] Allergy (Unknown, Verified 12/14/23 15:21) UNKNOWN HPI HPI Comments 2 History of Present Illness0 Details Patient is here for a follow-up skin check history of lichen sclerosus undiagnosed with a biopsy. She has been using topical clobetasol. Last visit was much improvement with her skin. She denies any itching or irritation, odors. Livia her care providers present today for her procedure. [facility] Medical History (Updated 10/21/23 @ 08:26 by Maritza Jason CNM) Lichen sclerosus et atrophicus Overweight (BMI 25.0-29.9) Depression Post traumatic stress disorder (PTSD) Overactive bladder Allergic rhinitis History of supraventricular tachycardia Impaired fasting glucose Pure hypercholesterolemia Surgical History Hx of colonoscopy History of cardiac radiofrequency ablation History of ankle surgery Family History Father Cancer CVD (cardiovascular disease) Mother Breast cancer Hypertension Diabetes Social History (Updated 10/21/23 @ 08:28 by Maritza Jason CNM) Household Members: Caregiver Household Members Other:: Lives w/Lorena Woodsaura ([facility]) [employer]. Alcohol intake: never Patient Tobacco Use Status: Never used Tobacco e-Cigarette/Vaping Use: Never Used Second Hand Smoke Exposure: No service: No Current occupational status: unemployed Cognitive needs: No Hearing needs: Yes (hearing aide) Vision needs: Yes (glasses) Physical Exam Vital Signs: Last Vital Signs BP 100/64 12/14/23 15:20 BMI result Body Mass Index 29.5 Other: External inspection only labial agglutination, loss of architecture hypopigmentation, anterior fourchette was reveals excoriated area midline. Perineal body with a thicker hypopigmented patch. Female genitals images: 2 1. perineal body region 2. anterior fourchette Office Procedures Skin Biopsy Details: Vulvar Biopsy: Preop Diagnosis: Vulvar biopsy. The patient was consented for a vulvar skin biopsy procedure today. The purpose of the procedure is to rule out any skin abnormalities in the area of concern(s) including: DELMA, or skin conditions such as lichen sclerosis. All the risks and benefits were reviewed. The risk of the procedure including: pain, bleeding, swelling, bruising, injury to nerves blood supply, and surrounding tissue, scarring, and permanent skin discoloration. All of her questions and concerns were addressed to the best of my ability and shared decision making. She is agreeable to the plan of care. The patient was placed in the dosal lithotomy position. Using aseptic technique for the procedure the biopsy area was cleansed and prepped with Betadine solution. The skin area was anesthetized with Lidocaine 1% using a 3cc syringe and a 25g needle, 0.5cc was injected perpendicular into the dermis at the biopsy site !. perineal body, 2. anterior fourchette, until elevation was noted. A Shave biopsy technique was utilized. The bleeding site was minimal and controlled by direct pressure for several seconds. Vaseline ointment and guaze dressing was applied to the biopsy site. The patient tolerated the procedure well and left the department in good condition. Post biopsies skin care: Keep the area clean and dry. Apply Vaseline to the area as directed for the 1st week. Wear loose clothing and avoid intimacy until well healed. Report any signs of infection: Fever flu-like symptom, increased pain, redness, any foul odor or pus discharge. Return to the office in 2 weeks for biopsy results. Call sooner if any concerns. All of her questions and concerns were addressed to the best of my ability and shared decision making. She is agreeable to the plan of care. This note is constructed using voice recognition software. While every effort has been made to ensure accuracy, deputy k 9 errors may have been included. Assessment & Plan Assessment & Plan (1) Vulvar lesion: Code(s): N90.89 - Other specified noninflammatory disorders of vulva and perineum (2) Hypopigmentation: Code(s): L81.9 - Disorder of pigmentation, unspecified Plan See procedure note Orders: Orders 2 Surgical Today L90.0 - Lichen sclerosus et atrophicus Coding Level of Care Code Procedure Only Diagnoses Vulvar lesion N90.89 Hypopigmentation L81.9
== END 2023-12-14 16:38 | disposition home or self-care (01) ==
LOC: HO.HWS 15:19
PROVIDERS: PCP Internal Medicine; Visit Provider Advanced Practice Midwife
DX: N90.89 Other specified noninflammatory disorders of vulva and perineum (principal); L81.9 Disorder of pigmentation, unspecified
CPT/HCPCS: 56605

== ENCOUNTER 2024-01-25 09:11 | Outpatient (REF) | payer MEDICARE, MEDICAID, SELFPAY ==
[2024-01-25 09:22] LABS: MANUAL DIFF FLAG NO
[2024-01-25 09:33] LABS: Basophils Percent Auto 0.6 % (0-2); Eosinophils Absolute Auto 0.1 X10*3/uL (0.0-0.4); Eosinophils Percent Auto 1.8 % (0-4); Hematocrit 42.6 % (37.0-47.0); Hemoglobin 13.7 g/dl (12.0-16.0); Imm Gran Abs Auto 0.02 X10*3/uL (0.00-0.03); Imm Gran Pct Auto 0.3 % (0.0-0.4); Lymphocytes Percent Auto 30.4 % (20-40); Mean Corpuscular HGB Conc 32.2 g/dl (31.0-35.0); Mean Corpuscular Hemoglobin 28.8 pg (27.0-33.0); Mean Corpuscular Volume 89.7 fL (80.0-98.0); Mean Platelet Volume 8.7 fL (9.4-12.3); Monocytes Absolute Auto 0.4 X10*3/uL (0.1-1.2); Monocytes Percent Auto 6.2 % (2-11); Neutrophils Absolute Auto 3.9 x10*3/uL (2.0-8.3); Neutrophils Percent Auto 60.7 % (45-73); Platelet Count 274 X10*3/uL (160-400); Red Blood Count 4.75 X10*6/uL (4.20-5.50); Red Cell Distribution Width 13.4 % (11.0-16.0); White Blood Count 6.5 X10*3/uL (4.8-10.8)
[2024-01-25 10:04] LABS: Alanine Aminotransferase 24 U/L (0-31); Albumin Level 4.1 g/dL (3.5-5.0); Alkaline Phosphatase 85 U/L (39-117); Anion Gap 11 (12-20); Aspartate Amino Transferase 22 U/L (5-31); Bilirubin Total 0.5 mg/dL (0.0-1.0); Blood Urea Nitrogen 19 mg/dL (9-16); Calcium 9.4 mg/dL (8.4-10.2); Carbon Dioxide 27 mmol/L (22-29); Chloride 107 mmol/L (96-108); Cholesterol 176 mg/dL (<200); Estimated Glomerular Filt Rate > 60; Glucose Fasting 104 mg/dL (60-99); HDL Cholesterol 48 mg/dL (>40); LDL Cholesterol Calculated 115 mg/dL (<100); Potassium 4.4 mmol/L (3.3-5.1); Sodium 141 mmol/L (135-145); Total Protein 7.1 g/dL (6.5-8.0); Triglycerides 66 mg/dL (<150)
[2024-01-25 10:22] LABS: Vitamin D 25-OH Total 54.5 ng/mL (>30)
== END 2024-01-25 09:12 | disposition home or self-care (01) ==
LOC: HO.LAB 09:11
PROVIDERS: PCP Internal Medicine; Visit Provider Internal Medicine
DX: I10 Essential (primary) hypertension (principal); E78.00 Pure hypercholesterolemia, unspecified; E55.9 Vitamin D deficiency, unspecified; L90.0 Lichen sclerosus et atrophicus; Z71.2 Person consulting for explanation of examination or test findings
CPT/HCPCS: 36415; 80053; 80061; 82306; 84443; 85025; 99212

== ENCOUNTER 2024-01-25 09:28 | Outpatient (AMB) | payer MEDICARE, MEDICAID, SELFPAY ==
--- NOTE | 2024-01-25 09:29 | A.OFFVIS_ITS ---
Intake Vital Signs 01/25/24 09:30 Height 5 ft 1 in Weight 156 lb BMI 29.5 BP 92/60 Intake Visit Reasons: Biopsy Results Dental Equipment Technician: Dental Equipment Technician Present (Polina) Allergies bee pollen [BEE STINGS] Allergy (Unknown, Verified 01/25/24 09:32) UNKNOWN Is last menstrual period known: Yes HPI HPI Comments History of Present Illness Details Patient is here today with her care provider Lorena for test results on her vulvar biopsy. [facility] Medical History (Updated 10/21/23 @ 08:26 by Maritza Jason CNM) Lichen sclerosus et atrophicus Overweight (BMI 25.0-29.9) Depression Post traumatic stress disorder (PTSD) Overactive bladder Allergic rhinitis History of supraventricular tachycardia Impaired fasting glucose Pure hypercholesterolemia Surgical History Hx of colonoscopy History of cardiac radiofrequency ablation History of ankle surgery Family History Father Cancer CVD (cardiovascular disease) Mother Breast cancer Hypertension Diabetes Social History (Updated 10/21/23 @ 08:28 by Maritza Jason CNM) Household Members: Caregiver Household Members Other:: Lives w/Lorena Woodsaura ([facility]) [employer]. Alcohol intake: never Patient Tobacco Use Status: Never used Tobacco e-Cigarette/Vaping Use: Never Used Second Hand Smoke Exposure: No service: No Current occupational status: unemployed Cognitive needs: No Hearing needs: Yes (hearing aide) Vision needs: Yes (glasses) Review of Systems Const All systems reviewed & are unremarkable except as noted in HPI and below Endo Reports no additional complaints Physical Exam Vital Signs: Last Vital Signs BP 92/60 01/25/24 09:30 BMI result Body Mass Index 29.5 Const General: cooperative, healthy appearing and no acute distress Other: External inspection only lichen sclerosus changes from the clitoris to the americo anal region with a small excoriation on the inner labia minora right side. Psych Appearance: well kempt Attitude: cooperative Thought process: Normal thought process present Results Reviewed Results Reviewed: Name: Kelly Perkins Age/Sex: 53/F Attending: Maritza Jason CNM : 1970 Submitted by: Maritza Jason CNM Copies to: Marco Gresham MD MR #: [id number] Status: DEP REF Collected: 12/14/23 Location: .LAB Received: 12/15/23 Diagnosis A. Vulva, perineum, biopsy: Superficial fragments of skin with mild inflammation, reactive changes and some features of lichen sclerosus. B. Vulva, anterior fourchette, biopsy: Superficial fragments of hyperkeratotic skin with features of lichen sclerosus. Clinical History Lichen sclerosus Microscopic Description A, B. Microscopic sections reviewed. No fungi are seen, supported by PAS stains. Material Received A. Vulvar biopsy of perineum B. Vulvar biopsy anterior fourchette Gross Description Received in 2 parts. Part A: Received in formalin labeled ?perineum? is a 0.9 x 0.2 x 0.1 cm elongate fragment of pale apple tissue, submitted in toto in a cassette labeled A. Part B: Received in formalin labeled ?anterior fourchette? is a 0.3 cm rodriguez-apple and apple-brown irregular fragment of mucosa, submitted in toto in a cassette labeled B. CEDS This case was reviewed intradepartmentally. Special studies ordered and performed: PAS stains on A and B Copies To Marco Gresham MD [address] [place] [id number] Maritza Jason CNM Patient: Kelly Perkins Age/Sex: 53/F MR#: [id number] Page 1 of 2 Assessment & Plan Assessment & Plan (1) Lichen sclerosus et atrophicus: Code(s): L90.0 - Lichen sclerosus et atrophicus (2) Encounter to discuss test results: Code(s): Z71.2 - Person consulting for explanation of examination or test findings Plan Discussed: Biopsy results with patient and her care provider. It was suspected based on Lorena's concerns that perhaps the patient is not using the medicine completely as directed and may be missing certain areas of the vulva. With her permission patient granted Lorena to assist her at home to make sure she reinforces the medication use properly. We will give her a chance to use the cream applications over the next few weeks to see if there is some improvement to the region, discuss possibly needing to do another biopsy or to refer to Dr. Byrd for further biopsies if needed. Use of a vulvar diagram picture was explained to the patient today identifying the region that she would need to focus on when applying the cream. Return to the office in 4 weeks for a skin check. Refilled to the medication sent to the pharmacy. All of her questions and concerns were addressed to the best of my ability and shared decision making. She is agreeable to the plan of care. This note is constructed using voice recognition software. While every effort has been made to ensure accuracy, precision crop manager errors may have been included. Medications: New betamethasone, augmented 0.05 % apply a thin a coat to area nightly for two weeks, then 3 times a week at bedtime 1 appl topical DAILY 2 weeks 45 grams 1RF Coding Level of Care Code Est Pt Level 3 (26205) Diagnoses Lichen sclerosus et atrophicus L90.0 Encounter to discuss test results Z71.2
[2024-01-25 09:30] VITALS: BP 92/60; BMI 29.5
== END 2024-01-25 09:51 | disposition home or self-care (01) ==
PROVIDERS: PCP Internal Medicine; Visit Provider Advanced Practice Midwife
DX: L90.0 Lichen sclerosus et atrophicus (principal); Z71.2 Person consulting for explanation of examination or test findings
CPT/HCPCS: 99213

== ENCOUNTER 2024-02-01 16:27 | Outpatient (AMB) | payer MEDICARE, MEDICAID, SELFPAY ==
[2024-02-01 16:38] VITALS: BP 102/60; PULSE 80; O2SAT 93
--- NOTE | 2024-02-01 16:38 | MHC.PC.OV ---
Vital Signs 02/01/24 16:38 Height 5 ft 1 in Weight 159 lb BMI 30.0 BP 102/60 Blood Pressure Location Lt brachial Position Sitting Pulse 80 Pulse Source Pulse Oximeter Pulse Oximetry (%) 93 Oxygen Delivery Method Room Air Intake Visit Reasons: dyslipidemia, allergic rhinitis, IFG, anxiety Rail Operations Controller Required: No Music Store Manager: Present Allergies bee pollen [BEE STINGS] Allergy (Unknown, Verified 07/03/24 09:44) UNKNOWN Medication List - Last Reconciled 02/01/24 by Marco Gresham MD [ADULT PULL UPS (large) As directed] betamethasone, augmented 0.05 % 1 appl topical DAILY 2 weeks buspirone 5 mg PO BID cholecalciferol (vitamin D3) 50 mcg PO DAILY epinephrine (EpiPen 2-Ken) 0.3 mg (0.3 mL) IM Q15M PRN escitalopram oxalate 20 mg PO DAILY fesoterodine ER (Toviaz) 8 mg PO DAILY 90 days fluticasone propionate 50 mcg/actuation 2 sprays intranasal DAILY incontinence pad, liner, disp As directed loratadine (Claritin Liqui-Gel) 10 mg PO DAILY lorazepam 0.5 mg PO BID PRN 30 days Tobacco use date assessed: 02/01/24 Dental Screening Dental Screen Date: 02/01/24 Did you have a dental visit in the last 12 months?: Yes Did you have a dental problem in the last 6 months where you did not have access to dental care?: No Was dental information given to patient?: Patient has dentist HPI dyslipidemia, allergic rhinitis, IFG, anxiety HPI Details Patient comes in today for her follow up visit States that she feels okay She denies any headaches or dizziness Denies any chest pains, no increased SOB No nausea/vomiting, no abdominal pain No change in bowel habits noted She had her follow up labs done last week - to discuss her results [facility] Medical History (Updated 07/03/24 @ 09:59 by Marco Gresham MD) Vitamin D deficiency Lichen sclerosus et atrophicus Overweight (BMI 25.0-29.9) Depression Post traumatic stress disorder (PTSD) Overactive bladder Allergic rhinitis History of supraventricular tachycardia Impaired fasting glucose Pure hypercholesterolemia Surgical History Hx of colonoscopy History of cardiac radiofrequency ablation History of ankle surgery Family History Father Cancer CVD (cardiovascular disease) Mother Breast cancer Hypertension Diabetes Social History Household Members: Caregiver Household Members Other:: Lives w/Lorena Bowden ([facility]) [employer] Cultural Services. Alcohol intake: never Patient Tobacco Use Status: Never used Tobacco e-Cigarette/Vaping Use: Never Used Second Hand Smoke Exposure: No service: No Current occupational status: unemployed Cognitive needs: No Hearing needs: Yes (hearing aide) Vision needs: Yes (glasses) Questionnaire PHQ-9 Over the last 2 weeks, how often have you been bothered by any of the following problems? 1. Little interest or pleasure in doing things: not at all 2. Feeling down, depressed, or hopeless: not at all 3. Trouble falling or staying asleep, or sleeping too much: not at all 4. Feeling tired or having little energy: not at all 5. Poor appetite or overeating: not at all 6. Feeling bad about yourself - or that you are a failure or have let yourself or your family down: not at all 7. Trouble concentrating on things, such as reading the newspaper or watching television: not at all 8. Moving or speaking so slowly that other people could have noticed. Or the opposite - being so fidgety or restless that you have been moving around a lot more than usual: not at all 9. Thoughts that you would be better off or of hurting yourself in some way: not at all Total score: 0 Depression Screening Interpretation: Negative Depression Screening Done: Yes 71005 - PHQ-9 Billing: Yes Source: Developed by Drs. Genaro Serna, Mey Jenkins, Michael Moreau and colleagues, with an educational etta from [employer]. Thrive Questionnaire Date Thrive assessed: 02/01/24 I am a: Patient What is your living situation today?: I have a steady place to live Within the past 12 months, did the food you bought not last and you didn't have the money to get more?: Never true Within the past 12 months, did you worry whether your food would run out before you got money to buy more?: Never true Do you have trouble paying for medicines?: No Do you have trouble getting transportation to medical appointments?: No Do you have trouble paying your heating and electricity bill?: No Do you have trouble taking care of your child, family member or friend?: No Do you have trouble with day-to-day activities such as bathing, preparing meals, shopping, managing finances, etc.?: No Are you currently unemployed and looking for a job?: No Are you interested in more education?: No Please select the resources that you would like help with: None Currently or been in a relationship where the following occur: no concerns reported THRIVE Score: 0 AUDIT C Alcohol Use Questionnaire (AUDIT-C) 1. How often do you have a drink containing alcohol?: Never 3. How often do you have six or more drinks on one occasion?: Never Total Score: 0 Score Reviewed/Action Taken: Yes MILTON-7 AMB Questionnaire MILTON-7 Date MILTON - 7 assessed: 02/01/24 Feeling nervous, anxious, or on edge: 0 = Not at all Not being able to stop or control worryin = Not at all Worrying too much about different things: 0 = Not at all Trouble relaxin = Not at all Being so restless that it is hard to sit still: 0 = Not at all Becoming easily annoyed or irritable: 0 = Not at all Feeling afraid as if something awful might happen: 0 = Not at all Total MILTON-7 score (0-4 normal; 5-9 mild; 10-14 moderate; 15-21 severe): 0 Source: Developed by Drs. Genaro Serna, Mey Jenkins, Michael Moreau and colleagues, with an educational etta from [employer]. Review of Systems Const Denies chills, Denies fatigue, Denies fever(s) and Denies headache(s) ENT Details: (+) hard of hearing Denies dysphagia, Denies dizziness, Denies otalgia, Denies headache(s), Denies neck pain, Denies odynophagia and Denies sore throat Card Denies chest pain, Denies irregular heart rhythm, Denies palpitations and Denies dyspnea Resp Denies chest congestion, Denies cough and Denies dyspnea GI Denies abdominal pain, Denies constipation, Denies dysphagia, Denies diarrhea, Denies nausea, Denies odynophagia and Denies vomiting Denies difficulty voiding, Denies dysuria and Reports urinary incontinence (especially at night) Musc Denies back pain, Denies arthralgias and Denies neck pain Skin/Breast Denies rash Neuro Denies dizziness and Denies headache(s) Psych Denies anxiety and Denies depression Endo Denies fatigue and Denies palpitations Physical exam (Primary Care) Vital Signs: Last Vital Signs Pulse 80 02/01/24 16:38 BP 102/60 02/01/24 16:38 Pulse Ox 93 02/01/24 16:38 Oxygen Delivery Method Room Air 02/01/24 16:38 BMI result Body Mass Index 30.0 Tobacco/Smoking Status: Tobacco use Status Tobacco use date assessed 02/01/24 02/01/24 16:43 Patient Tobacco Use Status Never used Tobacco 02/01/24 16:43 e-Cigarette/Vaping Use Never Used 02/01/24 16:43 PHQ-9: PHQ-9 Score PHQ-9: Total score 0 07/10/24 03:13 Depression Screening Interpretation: Negative Thrive Assessment: Date of Thrive Assessment Date Thrive assessed 02/01/24 02/01/24 16:43 Currently or been in a relationship where the following occur: no concerns reported Const General: no acute distress and alert HENMT Ears: TM's normal bilaterally and EAC's normal Throat: Yes posterior oropharynx normal and Yes tonsils normal (no TP congestion) Neck Neck: Yes no lymphadenopathy and Yes supple Thyroid: Thyroid normal Resp Auscultation: clear to auscultation bilaterally, no rales and no wheezes Cardio Rate: regular rate Rhythm: regular rhythm Heart sounds: no murmurs GI Palpation (GI): Soft to palpation and nontender Auscultation: normal bowel sounds General: Yes no CVA tenderness Back/Spine/Pelvis Back: no CVA tenderness Cervical Spine: No Cervical spine tenderness Thoracic/Lumbar Spine: No lumbar spinal tenderness Skin Rashes: no rashes Extrem General: Yes no clubbing, cyanosis or edema Results Reviewed Results Reviewed: Laboratory Tests 01/25/24 09:20 WBC 6.5 Hgb 13.7 Hct 42.6 Plt Count 274 Sodium 141 Potassium 4.4 Creatinine 0.80 Estimated GFR > 60 Fasting Glucose 104 H Calcium 9.4 AST 22 ALT 24 Triglycerides 66 Cholesterol 176 LDL Cholesterol, Calc 115 H HDL Cholesterol 48 25-OH Vitamin D Total 54.5 TSH 2.90 Assessment and Plan Assessment & Plan (1) Pure hypercholesterolemia: Code(s): E78.00 - Pure hypercholesterolemia, unspecified Plan: Results of her labs done last week reviewed and discussed with patient - her cholesterol levels have improved slightly from previous Reinforced low cholesterol diet Will recheck her labs and fasting lipids in 4 months for follow up (2) Impaired fasting glucose: Code(s): R73.01 - Impaired fasting glucose Plan: Her FBS was slightly elevated again at 104 mg/dl on her labs; her HgbA1c was normal at 5.5% when previously checked (was at 5.3% last year) Reinforced low calorie diet/exercise as tolerated (3) History of supraventricular tachycardia: Code(s): Z86.79 - Personal history of other diseases of the circulatory system Plan: She has been asymptomatic with no recurrence of symptoms since her ablation years ago in 2009 Follow up with cardiology as scheduled or PRN (4) Allergic rhinitis: Code(s): J30.9 - Allergic rhinitis, unspecified Qualifiers: Allergic rhinitis seasonality: unspecified Allergic rhinitis trigger: unspecified Qualified Code(s): J30.9 - Allergic rhinitis, unspecified Plan: Continue Fluticasone nasal spray QD PRN and OTC Loratadine 10 mg QD PRN (5) Vitamin D deficiency: Code(s): E55.9 - Vitamin D deficiency, unspecified Plan: Continue Vitamin D3 2000 units QD (6) Overactive bladder: Code(s): N32.81 - Overactive bladder Plan: Continue Toviaz 8 mg QD Follow up with urology (Dr. Cuevas) as scheduled (7) Post traumatic stress disorder (PTSD): Code(s): F43.10 - Post-traumatic stress disorder, unspecified Plan: Continue Lorazepam 0.5 mg BID PRN and Buspirone 5 mg BID Follow up with psychiatry as scheduled (8) Depression: Code(s): F32.9 - Major depressive disorder, single episode, unspecified Qualifiers: Active/Remission status: currently active Depression Type: major depressive disorder Major depression episode severity: unspecified Major depression recurrence: recurrent Qualified Code(s): F33.9 - Major depressive disorder, recurrent, unspecified Plan: Continue Escitalopram 20 mg QD (9) Obesity (BMI 30-39.9): Code(s): E66.9 - Obesity, unspecified Plan: Reinforced diet/exercise as tolerated/lose weight Plan Follow up in 4 months Orders: Orders Complete Blood Count Auto Diff 4 Months D64.9 - Anemia, unspecified Lipid Panel 4 Months E78.00 - Pure hypercholesterolemia, unspecified Comprehensive [place]. Panel Fast 4 Months E78.00 - Pure hypercholesterolemia, unspecified Coding Level of Care Code Est Pt Level 4 (61150) Diagnoses Pure hypercholesterolemia E78.00 Impaired fasting glucose R73.01 History of supraventricular tachycardia Z86.79 Allergic rhinitis, unspecified seasonality, unspecified trigger J30.9 Allergic rhinitis seasonality: unspecified Allergic rhinitis trigger: unspecified Vitamin D deficiency E55.9 Overactive bladder N32.81 Post traumatic stress disorder (PTSD) F43.10 Episode of recurrent major depressive disorder, unspecified depression episode severity F33.9 Active/Remission status: currently active Depression Type: major depressive disorder Major depression episode severity: unspecified Major depression recurrence: recurrent Obesity (BMI 30-39.9) E66.9
== END 2024-02-01 17:03 | disposition home or self-care (01) ==
PROVIDERS: PCP Internal Medicine; Visit Provider Internal Medicine
DX: E78.00 Pure hypercholesterolemia, unspecified (principal); F33.9 Major depressive disorder, recurrent, unspecified; R73.01 Impaired fasting glucose; Z86.79 Personal history of other diseases of the circulatory system; J30.9 Allergic rhinitis, unspecified; E55.9 Vitamin D deficiency, unspecified; N32.81 Overactive bladder; F43.10 Post-traumatic stress disorder, unspecified; E66.9 Obesity, unspecified
CPT/HCPCS: 99214

== ENCOUNTER 2024-02-25 08:02 | Outpatient (AMB) | payer MEDICARE, MEDICAID, SELFPAY ==
[2024-02-25 08:04] VITALS: BP 116/66
--- NOTE | 2024-02-25 08:04 | A.OFFVIS_ITS ---
Vital Signs 02/25/24 08:04 Height 5 ft 1 in Weight 158 lb 11.725 oz BMI 30.0 BP 116/66 Intake Visit Reasons: vulva check/30 mins Director Counseling Bureau Required: No Information Interpreted: non-clinical & clinical Menhaden Vessel Pilot: Menhaden Vessel Pilot Present (Rosio BROOKS) Accompanied by: Employee Allergies bee pollen [BEE STINGS] Allergy (Unknown, Verified 02/25/24 08:08) UNKNOWN Is last menstrual period known: Yes Post menopausal: Yes HPI Comments Details: Patient is here today for a follow up skin check due to her treatment for lichen sclerosus, she is accompanied by her care provider Lorena. She reports applying the cream nightly, and denies any itching or irritation. [facility] Medical History Lichen sclerosus et atrophicus Overweight (BMI 25.0-29.9) Depression Post traumatic stress disorder (PTSD) Overactive bladder Allergic rhinitis History of supraventricular tachycardia Impaired fasting glucose Pure hypercholesterolemia Surgical History Hx of colonoscopy History of cardiac radiofrequency ablation History of ankle surgery Family History Father Cancer CVD (cardiovascular disease) Mother Breast cancer Hypertension Diabetes Social History Household Members: Caregiver Household Members Other:: Lives w/Lorena Woodsaura ([facility]) [email or web address] Cultural [employer]. Alcohol intake: never Patient Tobacco Use Status: Never used Tobacco e-Cigarette/Vaping Use: Never Used Second Hand Smoke Exposure: No service: No Current occupational status: unemployed Cognitive needs: No Hearing needs: Yes (hearing aide) Vision needs: Yes (glasses) Review of Systems Const All systems reviewed & are unremarkable except as noted in HPI and below Endo Reports no additional complaints Physical Exam Vital Signs: Last Vital Signs BP 116/66 02/25/24 08:04 BMI result Body Mass Index 30.0 Const General: cooperative, healthy appearing and no acute distress Other: External inspection only: lichen changes, improvement since last exam. No lesions or excoriations. Psych Appearance: well kempt Attitude: cooperative Thought process: Normal thought process present Assessment & Plan Assessment & Plan (1) Lichen sclerosus et atrophicus: Code(s): L90.0 - Lichen sclerosus et atrophicus Category: Medical Plan: Discussed: Tapering of medication, unclear of the patient was confused she was supposed to be tapering to 3 times a week, will progress with that now reviewed instructions several times. The patient acknowledged her understanding and importance of using the meds every other day. Advised to call if there is any concerns such as bleeding, soreness, itching or any other unusual findings to have a immediate evaluation. Returns to the office in 2 months for a skin check. All of her questions and concerns were addressed to the best of my ability and shared decision making. She is agreeable to the plan of care. This note is constructed using voice recognition software. While every effort has been made to ensure accuracy, combat systems engineer errors may have been included. Plan Discussed: Plan of care, use of medication-decrease use to 3x a week, every other day. Coding Level of Care Code Est Pt Level 3 (98507) Diagnoses Lichen sclerosus et atrophicus L90.0
== END 2024-02-25 08:26 | disposition home or self-care (01) ==
PROVIDERS: PCP Internal Medicine; Visit Provider Advanced Practice Midwife
DX: L90.0 Lichen sclerosus et atrophicus (principal)
CPT/HCPCS: 99213

== ENCOUNTER → 2024-02-25 | Outpatient (BNVA) | payer MEDICARE, MEDICAID, SELFPAY | PROVIDERS: PCP Internal Medicine; Visit Provider Advanced Practice Midwife | DX: L90.0 Lichen sclerosus et atrophicus (principal) | CPT/HCPCS: 99212 ==

== ENCOUNTER 2024-03-01 08:34 | Outpatient (REF) | payer MEDICARE, MEDICAID, SELFPAY ==
--- NOTE | 2024-03-01 11:16 | MHC.AU.HA3 ---
Hearing Instrument Follow-Up- Binaural Date of Visit: 03/01/24 Garment Manufacturing Supervisor Used: Right Ear: Waldemar, Model, Color, Serial Number: Mandeep Lux L70-R SN: [id number] Color: Graphite Johnson Garage Supervisor Repair Warranty: 02/24/2026 Garage Supervisor Loss and Damage Warranty: 02/24/2026 [facility] Service Plan: 12/12/2023 Battery Size: Rechargeable Quality Control Assessor/Slim Tube: 0M Earmold/Dome/CShell/SlimTip:Small open dome Type of Wax Guard: CeruShield Dispensed By: [facility] Date of Fittin12/11/2022 Left Ear: Waldemar, Model, Color, Serial Number: Mandeep Lux L70-R SN: [id number] Color: Graphite Johnson Garage Supervisor Repair Warranty: 02/24/2026 Garage Supervisor Loss and Damage Warranty: 02/24/2026 [facility] Service Plan: 12/12/2023 Battery Size: Rechargeable Quality Control Assessor/Slim Tube: 0M Earmold/Dome/CShell/SlimTip: Small open dome Type of Wax Guard: CeruShield Dispensed By: [facility] Date of Fittin12/11/2022 Follow-Up Summary: Dispensed L&D left aid, paired with right aid. Right aid needed firmware update, done. Ran feedback remote sensing program manager. Recommendations: Recommendations: Hearing instrument follow-up or maintenance as needed. Recommendations (Other): Diagnosis Code(s): Primary Diagnosis: H90.3 Bilateral Sensorineural Hearing Loss Secondary Diagnosis: Signature: Student/Clinical Fellow: I have reviewed/agreed with student/fellow documentation: Provider: Ruddy Colby, [facility]
== END 2024-03-01 08:35 | disposition home or self-care (01) ==
LOC: HO.HAP 08:34
PROVIDERS: Visit Provider Internal Medicine
DX: Z46.1 Encounter for fitting and adjustment of hearing aid (principal); H90.3 Sensorineural hearing loss, bilateral
CPT/HCPCS: 92593

== ENCOUNTER 2024-04-28 08:03 | Outpatient (AMB) | payer MEDICARE, MEDICAID, SELFPAY ==
--- NOTE | 2024-04-28 08:03 | A.OFFVIS_ITS ---
Vital Signs 04/28/24 08:06 BP 100/62 Intake Visit Reasons: 2 month follow up Intake Note: Caregiver Lorena Setter Automatic Spinning Lathe: Setter Automatic Spinning Lathe Present (Polina) Accompanied by: Employee Allergies bee pollen [BEE STINGS] Allergy (Unknown, Verified 04/28/24 08:03) UNKNOWN Is last menstrual period known: Yes HPI Comments Details: Patient is here today for a follow up on her lichen sclerosus therapy using a topical steroid 3 times a week at bedtime. She reports no itching irritations or any other concerns. She is accompanied by her care provider whom she lives with, Livia. [facility] Medical History Lichen sclerosus et atrophicus Overweight (BMI 25.0-29.9) Depression Post traumatic stress disorder (PTSD) Overactive bladder Allergic rhinitis History of supraventricular tachycardia Impaired fasting glucose Pure hypercholesterolemia Surgical History Hx of colonoscopy History of cardiac radiofrequency ablation History of ankle surgery Family History Father Cancer CVD (cardiovascular disease) Mother Breast cancer Hypertension Diabetes Social History Household Members: Caregiver Household Members Other:: Lives w/Lorena Dennise ([facility]) [facility] [employer]. Alcohol intake: never Patient Tobacco Use Status: Never used Tobacco e-Cigarette/Vaping Use: Never Used Second Hand Smoke Exposure: No service: No Current occupational status: unemployed Cognitive needs: No Hearing needs: Yes (hearing aide) Vision needs: Yes (glasses) Review of Systems Const All systems reviewed & are unremarkable except as noted in HPI and below Endo Reports no additional complaints Physical Exam Vital Signs: Last Vital Signs BP 100/62 04/28/24 08:06 Const General: cooperative, healthy appearing and no acute distress Other: External inspection only: Atrophic skin changes, improvement in overall appearance with a lichen sclerosus, areas of hypopigmentation with no lesions, excoriations, parchment, thickening, or erythema. Psych Appearance: well kempt Attitude: cooperative Thought process: Normal thought process present Assessment & Plan Assessment & Plan (1) Lichen sclerosus et atrophicus of the vulva: Code(s): N90.4 - Leukoplakia of vulva Plan Discussed: Continue use of med maintenance change a prescription to lower potency to Westcort-hydrocortisone valerate 0.2% she is going to apply up to 3 times a week. Reviewed instructions with care provider who reports she is doing really well with medication application. Follow up in 8 weeks to recheck, call sooner if there is any concerns. All of her questions and concerns were addressed to the best of my ability and shared decision making. She is agreeable to the plan of care. This note is constructed using voice recognition software. While every effort has been made to ensure accuracy, pit tanner errors may have been included. Medications: New hydrocortisone valerate 0.2% Apply a thin coat to the area at bedtime. Use 3 times a week spaced out every other day. 1 appl topical .every other day 45 grams 1RF LS Coding Level of Care Code Est Pt Level 3 (85844) Diagnoses Lichen sclerosus et atrophicus of the vulva N90.4
[2024-04-28 08:06] VITALS: BP 100/62
== END 2024-04-28 08:53 | disposition home or self-care (01) ==
LOC: HO.HWS 08:03
PROVIDERS: PCP Internal Medicine; Visit Provider Advanced Practice Midwife
DX: N90.4 Leukoplakia of vulva (principal)
CPT/HCPCS: 99213

== ENCOUNTER → 2024-04-28 08:03 | Outpatient (BNVA) | payer MEDICARE, MEDICAID, SELFPAY | PROVIDERS: PCP Internal Medicine; Visit Provider Advanced Practice Midwife | DX: N90.4 Leukoplakia of vulva (principal); Z79.899 Other long term (current) drug therapy | CPT/HCPCS: 99212 ==

== ENCOUNTER 2024-06-23 08:22 | Outpatient (REF) | payer MEDICARE, MEDICAID, SELFPAY ==
[2024-06-23 09:15] LABS: MANUAL DIFF FLAG NO
[2024-06-23 09:24] LABS: Basophils Percent Auto 0.7 % (0-2); Eosinophils Absolute Auto 0.1 X10*3/uL (0.0-0.4); Eosinophils Percent Auto 2.5 % (0-4); Hematocrit 40.3 % (37.0-47.0); Imm Gran Abs Auto 0.01 X10*3/uL (0.00-0.03); Imm Gran Pct Auto 0.2 % (0.0-0.4); Lymphocytes Absolute Auto 1.8 X10*3/uL (1.2-4.9); Lymphocytes Percent Auto 32.6 % (20-40); Mean Corpuscular HGB Conc 32.3 g/dl (31.0-35.0); Mean Corpuscular Hemoglobin 28.9 pg (27.0-33.0); Mean Corpuscular Volume 89.6 fL (80.0-98.0); Mean Platelet Volume 8.2 fL (9.4-12.3); Monocytes Absolute Auto 0.5 X10*3/uL (0.1-1.2); Monocytes Percent Auto 8.5 % (2-11); Neutrophils Absolute Auto 3.1 x10*3/uL (2.0-8.3); Neutrophils Percent Auto 55.5 % (45-73); Platelet Count 229 X10*3/uL (160-400); Red Cell Distribution Width 13.7 % (11.0-16.0); White Blood Count 5.6 X10*3/uL (4.8-10.8)
[2024-06-23 09:57] LABS: Alanine Aminotransferase 22 U/L (0-31); Alkaline Phosphatase 87 U/L (39-117); Anion Gap 11 (12-20); Aspartate Amino Transferase 17 U/L (5-31); Bilirubin Total 0.3 mg/dL (0.0-1.0); Blood Urea Nitrogen 15 mg/dL (9-16); Calcium 9.5 mg/dL (8.4-10.2); Carbon Dioxide 26 mmol/L (22-29); Chloride 110 mmol/L (96-108); Cholesterol 158 mg/dL (<200); Estimated Glomerular Filt Rate > 60; Glucose Fasting 106 mg/dL (60-99); HDL Cholesterol 40 mg/dL (>40); LDL Cholesterol Calculated 105 mg/dL (<100); Potassium 4.1 mmol/L (3.3-5.1); Sodium 143 mmol/L (135-145); Total Protein 6.9 g/dL (6.5-8.0); Triglycerides 65 mg/dL (<150)
== END 2024-06-23 08:23 | disposition home or self-care (01) ==
LOC: HO.LAB 08:22
PROVIDERS: Absent Provider Internal Medicine; PCP Internal Medicine; Visit Provider Advanced Practice Midwife
DX: D64.9 Anemia, unspecified (principal); E78.00 Pure hypercholesterolemia, unspecified; L90.0 Lichen sclerosus et atrophicus; Z79.899 Other long term (current) drug therapy
CPT/HCPCS: 36415; 80053; 80061; 85025; 99212

== ENCOUNTER 2024-06-23 08:22 | Outpatient (AMB) | payer MEDICARE, MEDICAID, SELFPAY ==
[2024-06-23 08:23] VITALS: BP 102/60
--- NOTE | 2024-06-23 08:23 | MHC.OFFVIS ---
Vital Signs 06/23/24 08:23 BP 102/60 Intake Visit Reasons: 8 week skin check Intake Note: Director Of Community Life Lorena Plant Breeder Scientist: Plant Breeder Scientist Present (Polina) Accompanied by: Employee Allergies bee pollen [BEE STINGS] Allergy (Unknown, Verified 06/23/24 08:23) UNKNOWN Is last menstrual period known: Yes HPI Comments Details: Patient is here today for her follow up skin check, history of lichen sclerosus of the vulva and has tapered to a lower dose corticosteroid topical. Accompanied by her auto repair shop manager Nia. She denies any external irritation, itching sores or any abnormal discharge. She is applying the medication 3 times a week at bedtime. [facility] Medical History Lichen sclerosus et atrophicus Overweight (BMI 25.0-29.9) Depression Post traumatic stress disorder (PTSD) Overactive bladder Allergic rhinitis History of supraventricular tachycardia Impaired fasting glucose Pure hypercholesterolemia Surgical History Hx of colonoscopy History of cardiac radiofrequency ablation History of ankle surgery Family History Father Cancer CVD (cardiovascular disease) Mother Breast cancer Hypertension Diabetes Social History Household Members: Caregiver Household Members Other:: Lives w/Lorena Dennise ([facility]) [employer] Services. Alcohol intake: never Patient Tobacco Use Status: Never used Tobacco e-Cigarette/Vaping Use: Never Used Second Hand Smoke Exposure: No service: No Current occupational status: unemployed Cognitive needs: No Hearing needs: Yes (hearing aide) Vision needs: Yes (glasses) Review of Systems Const All systems reviewed & are unremarkable except as noted in HPI and below Endo Reports no additional complaints Physical Exam Vital Signs: Last Vital Signs BP 102/60 06/23/24 08:23 Const General: cooperative, healthy appearing and no acute distress Other: External inspection only: Mild hypopigmentation prominently amerioc clitoral labium minora anterior region, and perineum. No lesions, excoriations, erythema, fissures, parchment or thickening. Psych Appearance: well kempt Attitude: cooperative Thought process: Normal thought process present Assessment & Plan Assessment & Plan (1) Lichen sclerosus et atrophicus: Code(s): L90.0 - Lichen sclerosus et atrophicus Category: Medical Plan: (2) Follow-up encounter involving medication: Code(s): Z79.899 - Other senior living (current) drug therapy Plan: Discussed: Medication use-can consider tapering down to twice weekly, if symptoms occur- itching or irritation to increase usage back to 3 times a week at bedtime. Patient has an annual exam scheduled 10/12/2024, can have her follow up skin check w/same appointment. Call if there is any concerns sooner. All of her questions and concerns were addressed to the best of my ability and shared decision making. She is agreeable to the plan of care. This note is constructed using voice recognition software. While every effort has been made to ensure accuracy, supervisor coal handling errors may have been included. Medications: Refilled hydrocortisone valerate 0.2% Apply a thin coat to the area at bedtime. Use 3 times a week spaced out every other day. 1 appl topical .every other day 45 grams 1RF LS Coding Level of Care Code Est Pt Level 3 (25821) Diagnoses Lichen sclerosus et atrophicus L90.0 Follow-up encounter involving medication Z79.899
== END 2024-06-23 08:58 | disposition home or self-care (01) ==
LOC: HO.HWS 08:22
PROVIDERS: PCP Internal Medicine; Visit Provider Advanced Practice Midwife
DX: L90.0 Lichen sclerosus et atrophicus (principal); Z79.899 Other long term (current) drug therapy
CPT/HCPCS: 99213

== ENCOUNTER 2024-07-03 09:11 | Outpatient (AMB) | payer MEDICARE, MEDICAID, SELFPAY ==
[2024-07-03 09:18] VITALS: BP 102/80; PULSE 75; O2SAT 95; BMI 30.3
--- NOTE | 2024-07-03 09:18 | MHC.PC.OV ---
Vital Signs 07/03/24 09:18 Height 5 ft 1 in Weight 160 lb 6 oz BMI 30.3 BP 102/80 Blood Pressure Location Lt brachial Position Sitting Pulse 75 Pulse Source Pulse Oximeter Pulse Oximetry (%) 95 Oxygen Delivery Method Room Air Intake Visit Reasons: 4 Months Felt Carbonizer Required: No Accompanied by: Self / Same As Patient Allergies bee pollen [BEE STINGS] Allergy (Unknown, Verified 07/03/24 09:44) UNKNOWN Medication List - Last Reconciled 07/03/24 by Marco Gresham MD [ADULT PULL UPS (large) As directed] betamethasone, augmented 0.05 % 1 appl topical DAILY 2 weeks buspirone 5 mg PO BID cholecalciferol (vitamin D3) 50 mcg PO DAILY epinephrine (EpiPen 2-Ken) 0.3 mg (0.3 mL) IM Q15M PRN escitalopram oxalate 20 mg PO DAILY fesoterodine ER (Toviaz) 8 mg PO DAILY 90 days fluticasone propionate 50 mcg/actuation 2 sprays intranasal DAILY hydrocortisone valerate 0.2% 1 appl topical .every other day incontinence pad, liner, disp As directed loratadine (Claritin Liqui-Gel) 10 mg PO DAILY lorazepam 0.5 mg PO BID PRN 30 days Tobacco use date assessed: 07/03/24 Dental Screening Dental Screen Date: 07/03/24 Did you have a dental visit in the last 12 months?: Yes Did you have a dental problem in the last 6 months where you did not have access to dental care?: No Was dental information given to patient?: Patient has dentist HPI 4 Months HPI Details Patient comes in today for her follow up visit States that she feels okay She denies any headaches or dizziness Denies any chest pains, no SOB No nausea/vomiting, no abdominal pain No change in bowel habits noted She had her follow up labs done a couple of weeks ago - to discuss her results [facility] Medical History (Updated 07/03/24 @ 09:59 by Marco Gresham MD) Vitamin D deficiency Lichen sclerosus et atrophicus Overweight (BMI 25.0-29.9) Depression Post traumatic stress disorder (PTSD) Overactive bladder Allergic rhinitis History of supraventricular tachycardia Impaired fasting glucose Pure hypercholesterolemia Surgical History Hx of colonoscopy History of cardiac radiofrequency ablation History of ankle surgery Family History Father Cancer CVD (cardiovascular disease) Mother Breast cancer Hypertension Diabetes Social History Household Members: Caregiver Household Members Other:: Lives w/Lorena Bowden ([facility]) [employer]. Alcohol intake: never Patient Tobacco Use Status: Never used Tobacco e-Cigarette/Vaping Use: Never Used Second Hand Smoke Exposure: No service: No Current occupational status: unemployed Cognitive needs: No Hearing needs: Yes (hearing aide) Vision needs: Yes (glasses) Questionnaire PHQ-9 Over the last 2 weeks, how often have you been bothered by any of the following problems? 1. Little interest or pleasure in doing things: not at all 2. Feeling down, depressed, or hopeless: not at all 3. Trouble falling or staying asleep, or sleeping too much: not at all 4. Feeling tired or having little energy: not at all 5. Poor appetite or overeating: not at all 6. Feeling bad about yourself - or that you are a failure or have let yourself or your family down: not at all 7. Trouble concentrating on things, such as reading the newspaper or watching television: not at all 8. Moving or speaking so slowly that other people could have noticed. Or the opposite - being so fidgety or restless that you have been moving around a lot more than usual: not at all 9. Thoughts that you would be better off or of hurting yourself in some way: not at all Total score: 0 Depression Screening Interpretation: Negative Depression Screening Done: Yes 43924 - PHQ-9 Billing: Yes Source: Developed by Drs. Genaro Serna, Mey Jenkins, Michael Moreau and colleagues, with an educational etta from [employer]. Thrive Questionnaire Date Thrive assessed: 07/03/24 I am a: Patient What is your living situation today?: I have a steady place to live Within the past 12 months, did the food you bought not last and you didn't have the money to get more?: Never true Within the past 12 months, did you worry whether your food would run out before you got money to buy more?: Never true Do you have trouble paying for medicines?: No Do you have trouble getting transportation to medical appointments?: No Do you have trouble paying your heating and electricity bill?: No Do you have trouble taking care of your child, family member or friend?: No Do you have trouble with day-to-day activities such as bathing, preparing meals, shopping, managing finances, etc.?: No Are you currently unemployed and looking for a job?: No Are you interested in more education?: No Please select the resources that you would like help with: None Currently or been in a relationship where the following occur: No concerns reported THRIVE Score: 0 AUDIT C Alcohol Use Questionnaire (AUDIT-C) 1. How often do you have a drink containing alcohol?: Never 3. How often do you have six or more drinks on one occasion?: Never Total Score: 0 Score Reviewed/Action Taken: Yes MILTON-7 AMB Questionnaire MILTON-7 Date MILTON - 7 assessed: 07/03/24 Feeling nervous, anxious, or on edge: 0 = Not at all Not being able to stop or control worryin = Not at all Worrying too much about different things: 0 = Not at all Trouble relaxin = Not at all Being so restless that it is hard to sit still: 0 = Not at all Becoming easily annoyed or irritable: 0 = Not at all Feeling afraid as if something awful might happen: 0 = Not at all Total MILTON-7 score (0-4 normal; 5-9 mild; 10-14 moderate; 15-21 severe): 0 Source: Developed by Drs. Genaro Serna, Mey Jenkins, Michael Moreau and colleagues, with an educational etta from [employer]. Review of Systems Const Denies chills, Denies fatigue, Denies fever(s) and Denies headache(s) ENT Details: (+) hard of hearing Denies dysphagia, Denies dizziness, Denies otalgia, Denies headache(s), Denies neck pain, Denies odynophagia and Denies sore throat Card Denies chest pain, Denies irregular heart rhythm, Denies palpitations and Denies dyspnea Resp Denies chest congestion, Denies cough and Denies dyspnea GI Denies abdominal pain, Denies constipation, Denies dysphagia, Denies heartburn, Denies diarrhea, Denies nausea, Denies odynophagia and Denies vomiting Denies difficulty voiding, Denies dysuria and Reports urinary incontinence (especially at night) Musc Denies back pain, Denies arthralgias and Denies neck pain Skin/Breast Denies rash Neuro Denies dizziness and Denies headache(s) Psych Denies anxiety and Denies depression Endo Denies fatigue and Denies palpitations Quentin/Lymph Denies easy bruising Physical exam (Primary Care) Vital Signs: Last Vital Signs Pulse 75 07/03/24 09:18 BP 102/80 07/03/24 09:18 Pulse Ox 95 07/03/24 09:18 Oxygen Delivery Method Room Air 07/03/24 09:18 BMI result Body Mass Index 30.3 Tobacco/Smoking Status: Tobacco use Status Tobacco use date assessed 07/03/24 07/03/24 09:24 Patient Tobacco Use Status Never used Tobacco 07/03/24 09:24 e-Cigarette/Vaping Use Never Used 07/03/24 09:24 PHQ-9: PHQ-9 Score PHQ-9: Total score 0 07/03/24 09:24 Depression Screening Interpretation: Negative Thrive Assessment: Date of Thrive Assessment Date Thrive assessed 07/03/24 07/03/24 09:24 Currently or been in a relationship where the following occur: No concerns reported Const General: no acute distress and alert HENMT Ears: TM's normal bilaterally and EAC's normal Throat: Yes posterior oropharynx normal and Yes tonsils normal (no TP congestion) Neck Neck: Yes no lymphadenopathy and Yes supple Thyroid: Thyroid normal Resp Auscultation: clear to auscultation bilaterally, no rales and no wheezes Cardio Rate: regular rate Rhythm: regular rhythm Heart sounds: no murmurs GI Palpation (GI): Soft to palpation and nontender Auscultation: normal bowel sounds General: Yes no CVA tenderness Back/Spine/Pelvis Back: no CVA tenderness Thoracic/Lumbar Spine: No lumbar spinal tenderness Skin Rashes: no rashes Extrem General: Yes no clubbing, cyanosis or edema Results Reviewed Results Reviewed: Laboratory Tests 06/23/24 09:14 WBC 5.6 Hgb 13.0 Hct 40.3 Plt Count 229 Sodium 143 Potassium 4.1 Creatinine 0.84 Estimated GFR > 60 Fasting Glucose 106 H Calcium 9.5 AST 17 ALT 22 Triglycerides 65 Cholesterol 158 LDL Cholesterol, Calc 105 H HDL Cholesterol 40 L Assessment and Plan Assessment & Plan (1) Pure hypercholesterolemia: Code(s): E78.00 - Pure hypercholesterolemia, unspecified Plan: Results of her labs done a couple of weeks ago reviewed and discussed with patient She is advised that her cholesterol levels, particularly her total and LDL cholesterol, has improved slightly from previous Reinforced low cholesterol diet Will recheck her labs and fasting lipids in 4 months for follow up (2) Impaired fasting glucose: Code(s): R73.01 - Impaired fasting glucose Plan: Her FBS was again slightly elevated at 106 mg/dl on her labs done a couple of weeks ago; her HgbA1c was normal at 5.5% and 5.3% when previously checked Reinforced low calorie/low carb diet, exercise as tolerated (3) History of supraventricular tachycardia: Code(s): Z86.79 - Personal history of other diseases of the circulatory system Plan: She has been asymptomatic with no recurrence of symptoms since her ablation back in 2009 Follow up with cardiology as scheduled or PRN (4) Allergic rhinitis: Code(s): J30.9 - Allergic rhinitis, unspecified Qualifiers: Allergic rhinitis trigger: unspecified Allergic rhinitis seasonality: unspecified Qualified Code(s): J30.9 - Allergic rhinitis, unspecified Plan: Continue Fluticasone nasal spray QD PRN and OTC Loratadine 10 mg QD PRN (5) Vitamin D deficiency: Code(s): E55.9 - Vitamin D deficiency, unspecified Plan: Continue Vitamin D3 2000 units QD (6) Overactive bladder: Code(s): N32.81 - Overactive bladder Plan: Continue Toviaz 8 mg QD Follow up with urology (Dr. Cuevas) as scheduled (7) Post traumatic stress disorder (PTSD): Code(s): F43.10 - Post-traumatic stress disorder, unspecified Plan: Continue Lorazepam 0.5 mg BID PRN and Buspirone 5 mg BID Follow up with psychiatry as scheduled (8) Depression: Code(s): F32.9 - Major depressive disorder, single episode, unspecified Qualifiers: Depression Type: major depressive disorder Major depression recurrence: recurrent Active/Remission status: currently active Major depression episode severity: unspecified Qualified Code(s): F33.9 - Major depressive disorder, recurrent, unspecified Plan: Continue Escitalopram 20 mg QD Plan To return in 4 months for her next annual physical examination Orders: Orders Complete Blood Count Auto Diff 4 Months D64.9 - Anemia, unspecified, Z00.00 - Encounter for general adult medical examination without abnormal findings Vitamin D 25-OH Total 4 Months E55.9 - Vitamin D deficiency, unspecified, Z00.00 - Encounter for general adult medical examination without abnormal findings Comprehensive [place]. Panel Fast 4 Months E78.00 - Pure hypercholesterolemia, unspecified, Z00.00 - Encounter for general adult medical examination without abnormal findings Lipid Panel 4 Months E78.00 - Pure hypercholesterolemia, unspecified, Z00.00 - Encounter for general adult medical examination without abnormal findings TSH reflex Free T4 4 Months E78.00 - Pure hypercholesterolemia, unspecified, Z00.00 - Encounter for general adult medical examination without abnormal findings UA CC w/rflx Micro + Cult 4 Months R30.0 - Dysuria, Z00.00 - Encounter for general adult medical examination without abnormal findings Hemoglobin A1c 4 Months R73.01 - Impaired fasting glucose, Z00.00 - Encounter for general adult medical examination without abnormal findings Coding Level of Care Code Est Pt Level 4 (71433) Diagnoses Pure hypercholesterolemia E78.00 Impaired fasting glucose R73.01 History of supraventricular tachycardia Z86.79 Allergic rhinitis, unspecified seasonality, unspecified trigger J30.9 Allergic rhinitis trigger: unspecified Allergic rhinitis seasonality: unspecified Vitamin D deficiency E55.9 Overactive bladder N32.81 Post traumatic stress disorder (PTSD) F43.10 Episode of recurrent major depressive disorder, unspecified depression episode severity F33.9 Depression Type: major depressive disorder Major depression recurrence: recurrent Active/Remission status: currently active Major depression episode severity: unspecified
== END 2024-07-03 09:54 | disposition home or self-care (01) ==
PROVIDERS: PCP Internal Medicine; Visit Provider Internal Medicine
DX: E78.00 Pure hypercholesterolemia, unspecified (principal); R73.01 Impaired fasting glucose; F33.9 Major depressive disorder, recurrent, unspecified; Z86.79 Personal history of other diseases of the circulatory system; J30.9 Allergic rhinitis, unspecified; E55.9 Vitamin D deficiency, unspecified; N32.81 Overactive bladder; F43.10 Post-traumatic stress disorder, unspecified

== ENCOUNTER → 2024-07-03 09:11 | Outpatient (BNVA) | payer MEDICARE, MEDICAID, SELFPAY | PROVIDERS: PCP Internal Medicine; Visit Provider Internal Medicine | DX: E78.00 Pure hypercholesterolemia, unspecified (principal); R73.01 Impaired fasting glucose; J30.9 Allergic rhinitis, unspecified; E55.9 Vitamin D deficiency, unspecified; N32.81 Overactive bladder; F43.10 Post-traumatic stress disorder, unspecified; F33.9 Major depressive disorder, recurrent, unspecified; Z86.79 Personal history of other diseases of the circulatory system | CPT/HCPCS: 99212 ==

== ENCOUNTER 2024-10-12 08:31 | Outpatient (AMB) | payer MEDICARE, MEDICAID, SELFPAY ==
--- NOTE | 2024-10-12 08:34 | MHC.OFFVIS ---
Vital Signs 10/12/24 08:36 Height 5 ft 1 in Weight 160 lb BMI 30.2 BP 100/66 Intake Visit Reasons: CAN DOFFER annual exam Intake Note: Crossing Supervisor Lorena Wildlife Photographer: Wildlife Photographer Present (Polina) Accompanied by: Family/Other Allergies bee pollen [BEE STINGS] Allergy (Unknown, Verified 10/12/24 08:35) UNKNOWN HPI Comments Details: She is a postmenopausal woman presenting for her annual vaccine manager examination. History of lichen sclerosus she reports she is doing well with her medication and has no concerns with any symptoms. She is doing well with no vaccine manager concerns. Currently never sexually active. Denies any vaginal dryness or irritation. Attempting to eat a healthy diet with calcium and vitamin D and stays active with exercise. Last pap smear; 2021. Last mammogram; 2022. Colonoscopy is UTD. Denies any family history of ovarian or colon cancer. Family history of breast cancer-mother. [facility] Medical History Vitamin D deficiency Lichen sclerosus et atrophicus Overweight (BMI 25.0-29.9) Depression Post traumatic stress disorder (PTSD) Overactive bladder Allergic rhinitis History of supraventricular tachycardia Impaired fasting glucose Pure hypercholesterolemia Surgical History Hx of colonoscopy History of cardiac radiofrequency ablation History of ankle surgery Family History Father Cancer CVD (cardiovascular disease) Mother Breast cancer Hypertension Diabetes Social History Household Members: Caregiver Household Members Other:: Lives w/Lorena Bowden ([facility]) [employer]. Alcohol intake: never Patient Tobacco Use Status: Never used Tobacco e-Cigarette/Vaping Use: Never Used Second Hand Smoke Exposure: No service: No Current occupational status: unemployed Cognitive needs: No Hearing needs: Yes (hearing aide) Vision needs: Yes (glasses) Female Reproductive History Menstrual Total pregnancies: 0 Date of last pap smear: 06/08/22 (neg pap and hpv) Date of Mammogram: 11/05/23 (Birad 1) Review of Systems Const All systems reviewed & are unremarkable except as noted in HPI and below Reports as per HPI Eyes Reports no additional complaints ENT Reports no additional complaints Card Reports no additional complaints Resp Reports no additional complaints GI Reports as per HPI and Reports no additional complaints Reports as per HPI Musc Reports no additional complaints Skin/Breast Reports as per HPI Neuro Reports no additional complaints Psych Reports no additional complaints Endo Reports no additional complaints Quentin/Lymph Reports no additional complaints Aller/Immun Reports no additional complaints Physical Exam Vital Signs: Last Vital Signs BP 100/66 10/12/24 08:36 BMI result Body Mass Index 30.2 Const General: cooperative, healthy appearing, no acute distress, well developed and alert Orientation/consciousness: patient oriented x3 HEENT Head: Yes normal to inspection Eyes General: appearance normal, both eyes and all related structures Neck Neck: Yes normal visual inspection Thyroid: Thyroid normal Chest Chest palpation & inspection: normal inspection of the chest and other (no puckering, dimpling, peau de orange, retraction, discharge, masses) Breast/axilla inspection: normal inspection of the breasts Breast/axilla palpation: normal palpation of the breasts Resp Effort & Inspection: normal respiratory effort GI Inspection: Yes normal to inspection Palpation (GI): Soft to palpation Rectal Exam - Female: deferred Other: External inspection-loss of architecture, labial fusing as previously noted, hypopigmentation. General: Yes bladder normal to palpation External Female Exam: normal external appearance and normal appearance of the urethra Speculum Exam - Vagina: normal palpation and vagina atrophic Speculum Exam - Cervix: normal appearance of the cervix and normal palpation Bimanual exam- vagina & uterus: normal bimanual exam, normal palpation, uterine size normal, bladder normal to palpation, normal palpation and non-tender Bimanual Exam- Adnexa, other: no masses Skin General skin exam: no rashes or lesions noted Rashes: no rashes Neuro General: patient oriented x3 Cognition (Neuro): normal cognition Extrem General: Yes normal to inspection Psych Attitude: cooperative Thought process: Normal thought process present Assessment & Plan Assessment & Plan (1) Encounter for well woman exam with routine gynecological exam: Code(s): Z01.419 - Encounter for gynecological examination (general) (routine) without abnormal findings Category: Medical Plan Discussed: Current recommendations for pap smears per ASCCP guidelines. Breast awareness, periodic self breast exams and yearly mammogram. Maintain a healthy lifestyle, well balanced diet including Calcium 1,200 mg and Vitamin D 600 IU daily, and routine exercise. Skin care-taper to twice a week for medication use if becomes symptomatic can increase to 3 times a week if symptoms are persistent or do not resolve we will need to be seen prior to her 3 month follow up for skin check. Contact the office with any postmenopausal bleeding. Patient verbalizes understanding and agrees to the plan of care. She was given opportunity to ask questions and all questions were answered to the best of my ability. RTO in 1 year for annual vaccine manager exam. This note is constructed using voice recognition software. While every effort has been made to ensure accuracy, satellite project site monitor errors may have been included. Medications: Changed From hydrocortisone valerate 0.2% Apply a thin coat to the area at bedtime. Use 3 times a week spaced out every other day. 1 appl topical .every other day 45 grams 1RF LS To hydrocortisone valerate 0.2% Apply a thin coat to the area at bedtime twice a week. 1 appl topical .twice a week 45 grams 1RF LS Coding Level of Care Code Est Pt Prev Care 40-64y(27557) Diagnoses Encounter for well woman exam with routine gynecological exam Z01.419
[2024-10-12 08:36] VITALS: BP 100/66; BMI 30.2
== END 2024-10-12 08:57 | disposition home or self-care (01) ==
PROVIDERS: PCP Internal Medicine; Visit Provider Advanced Practice Midwife
DX: Z01.419 Encounter for gynecological examination (general) (routine) without abnormal findings (principal)
CPT/HCPCS: G0101

== ENCOUNTER → 2024-10-12 08:31 | Outpatient (BNVA) | payer MEDICARE, SELFPAY | PROVIDERS: PCP Internal Medicine; Visit Provider Advanced Practice Midwife | DX: Z01.419 Encounter for gynecological examination (general) (routine) without abnormal findings (principal) | CPT/HCPCS: G0101 ==

== ENCOUNTER 2024-11-04 10:02 | Outpatient (REF) | payer MEDICARE, MEDICAID, SELFPAY ==
[2024-11-04 10:21] LABS: MANUAL DIFF FLAG NO
[2024-11-04 11:24] LABS: Basophils Percent Auto 0.7 % (0-2); Eosinophils Absolute Auto 0.1 X10*3/uL (0.0-0.4); Hematocrit 43.4 % (37.0-47.0); Hemoglobin 13.8 g/dl (12.0-16.0); Imm Gran Abs Auto 0.02 X10*3/uL (0.00-0.03); Imm Gran Pct Auto 0.3 % (0.0-0.4); Lymphocytes Percent Auto 33.2 % (20-40); Mean Corpuscular HGB Conc 31.8 g/dl (31.0-35.0); Mean Corpuscular Hemoglobin 28.6 pg (27.0-33.0); Mean Corpuscular Volume 89.9 fL (80.0-98.0); Mean Platelet Volume 9.1 fL (9.4-12.3); Monocytes Absolute Auto 0.4 X10*3/uL (0.1-1.2); Monocytes Percent Auto 6.6 % (2-11); Neutrophils Absolute Auto 3.5 x10*3/uL (2.0-8.3); Neutrophils Percent Auto 57.2 % (45-73); Platelet Count 261 X10*3/uL (160-400); Red Blood Count 4.83 X10*6/uL (4.20-5.50); Red Cell Distribution Width 13.2 % (11.0-16.0); White Blood Count 6.1 X10*3/uL (4.8-10.8)
[2024-11-04 11:29] LABS: Appearance Urine Clear; Color Urine Yellow; Glucose Urine UA Negative (Negative); Leukocyte Esterase Urine Trace (Negative); Nitrite Urine Negative (Negative); PH >= 9.0 (5.0-9.0); UMIC TRIGGER UACC YES; Urine Blood Negative (Negative); Urine Ketones Negative (Negative); Urine Protein Negative (Neg-Trace)
[2024-11-04 11:32] LABS: Bacteria Urine None Seen (None Seen); Hyaline Casts Urine 0-2 /LPF (0-2); RBC Urine 0-2 /HPF (0-2); Squamous Epithelial Cell Urine 0-2 /HPF (0-2); WBC Urine 0-5 /HPF (0-5)
[2024-11-04 11:50] LABS: Estimated Average Glucose 117 mg/dL; Hemoglobin A1C 137.2277 umol/L; Hemoglobin A1c % 5.7 % (<6.0); Total Hemoglobin (HGBA1C) 3577.1753 umol/L
[2024-11-04 12:01] LABS: Alanine Aminotransferase 26 U/L (0-31); Albumin Level 4.1 g/dL (3.5-5.0); Alkaline Phosphatase 82 U/L (39-117); Anion Gap 11 (12-20); Aspartate Amino Transferase 26 U/L (5-31); Bilirubin Total 0.4 mg/dL (0.0-1.0); Blood Urea Nitrogen 18 mg/dL (9-16); Calcium 9.4 mg/dL (8.4-10.2); Carbon Dioxide 28 mmol/L (22-29); Chloride 108 mmol/L (96-108); Cholesterol 164 mg/dL (<200); Estimated Glomerular Filt Rate > 60; Glucose Fasting 93 mg/dL (60-99); HDL Cholesterol 44 mg/dL (>40); LDL Cholesterol Calculated 105 mg/dL (<100); Potassium 4.1 mmol/L (3.3-5.1); Sodium 143 mmol/L (135-145); Total Protein 7.2 g/dL (6.5-8.0); Triglycerides 76 mg/dL (<150)
[2024-11-04 12:23] LABS: Vitamin D 25-OH Total 61.2 ng/mL (>30)
== END 2024-11-04 10:03 | disposition home or self-care (01) ==
LOC: HO.LAB 10:02
PROVIDERS: PCP Internal Medicine; Visit Provider Internal Medicine
DX: Z00.00 Encounter for general adult medical examination without abnormal findings (principal); E55.9 Vitamin D deficiency, unspecified; D64.9 Anemia, unspecified; E78.00 Pure hypercholesterolemia, unspecified; R73.01 Impaired fasting glucose; R30.0 Dysuria
CPT/HCPCS: 36415; 80053; 80061; 81001; 82306; 83036; 84443; 85025

== ENCOUNTER 2024-11-06 08:45 | Outpatient (AMB) | payer MEDICARE, MEDICAID, SELFPAY ==
--- NOTE | 2024-11-06 08:53 | A.OFFVIS_ITS ---
Intake Visit Reasons: 1y follow up Intake Note: Patient presents today for follow up on: nocturia and OAB Urology Medication: Fesoterodine Antibiotic Allergies: None Blood Thinners: None PVR:0ml's Pick Out Hand Required: No Accompanied by: Self / Same As Patient Allergies bee pollen [BEE STINGS] Allergy (Unknown, Verified 11/06/24 09:25) UNKNOWN Medication List - Last Reconciled 11/06/24 by GALLO Dang [ADULT PULL UPS (large) As directed] betamethasone, augmented 0.05 % 1 appl topical DAILY 2 weeks buspirone 5 mg PO BID cholecalciferol (vitamin D3) 50 mcg PO DAILY epinephrine (EpiPen 2-Ken) 0.3 mg (0.3 mL) IM Q15M PRN escitalopram oxalate 20 mg PO DAILY fesoterodine ER (Toviaz) 8 mg PO DAILY 90 days fluticasone propionate 50 mcg/actuation 2 sprays intranasal DAILY hydrocortisone valerate 0.2% 1 appl topical .twice a week incontinence pad, liner, disp As directed loratadine (Claritin Liqui-Gel) 10 mg PO DAILY lorazepam 0.5 mg PO BID PRN 30 days HPI Comments Details: Kelly is a very pleasant 53 year old female of Dr Gresh[place]. She has a past medical history of vitamin-D deficiency, Matias sclerosis, overweight, depression, PTSD, allergic rhinitis, hypercholesteremia. She presents to the office today for follow-up of her overactive bladder. In discussion with the patient today she reports to be doing and feeling well. She denies having had any bothersome urinary issues or concerns since her last office visit here over a year ago. She reports compliance with Toviaz 8 mg daily as prescribed. In office urinalysis results reviewed with the patient today. PVR 0 mL. When asked she denies urinary urgency, urinary frequency, nocturia, hematuria, dysuria, foul smelling urine, changes to urinary stream, flank pain, fever, and or chills. She is happy with her current voiding parameters. She does report episodes of urinary incontinence however describes these episodes as infrequent. Patient with a previous testing including ultrasound noting good emptying and normal bladder per previous provider notes. She otherwise offers no other issues or concerns at this time. [facility] Medical History Vitamin D deficiency Lichen sclerosus et atrophicus Overweight (BMI 25.0-29.9) Depression Post traumatic stress disorder (PTSD) Overactive bladder Allergic rhinitis History of supraventricular tachycardia Impaired fasting glucose Pure hypercholesterolemia Surgical History Hx of colonoscopy History of cardiac radiofrequency ablation History of ankle surgery Family History Father Cancer CVD (cardiovascular disease) Mother Breast cancer Hypertension Diabetes Social History Household Members: Caregiver Household Members Other:: Lives w/Lorena Bowden ([facility] [employer] [facility]. Alcohol intake: never Patient Tobacco Use Status: Never used Tobacco e-Cigarette/Vaping Use: Never Used Second Hand Smoke Exposure: No service: No Current occupational status: unemployed Cognitive needs: No Hearing needs: Yes (hearing aide) Vision needs: Yes (glasses) Review of Systems Const All systems reviewed & are unremarkable except as noted in HPI and below Physical Exam Const General: cooperative, healthy appearing, comfortable, no acute distress, well developed, alert and awake Orientation/consciousness: patient oriented x3 Limitations: no limitations HEENT Head: Yes normal to inspection, Yes normocephalic and Yes atraumatic Ears: hearing grossly normal bilaterally Eyes General: appearance normal, both eyes and all related structures Neck Neck: Yes normal visual inspection and Yes trachea midline Chest Chest palpation & inspection: normal inspection of the chest Resp Effort & Inspection: normal respiratory effort and able to speak in complete sentences Cardio Rate: regular rate GI Inspection: Yes normal to inspection General: Yes no CVA tenderness Back/Spine/Pelvis Back: no CVA tenderness Skin General skin exam: no rashes or lesions noted Neuro General: patient oriented x3 Extrem General: Yes normal to inspection Psych Appearance: grossly normal and well kempt Mental Status: mental status grossly normal Speech and movement: Normal speech and movement present and Clear speech present Affect: normal affect Attitude: cooperative Thought process: Normal thought process present Thought content: Normal thought content present Insight: Fair insight present (Psych) Judgement: Fair judgement present (Psych) Office Procedures Post Void Residual Post Residual Void Post Void Residual (PVR): 0 22591-Iyad Void Residual by ultrasound Results AMB Urinalysis, Automated UA Leukoctes 0 Agnes/uL Last Edit by Nexterraosmar Bojorquez on 11/06/24 09:15 UA Nitrite Last Edit by GLGnoel Bojorquez on 11/06/24 09:15 UA Urobilinogen 0.2 mg/dL Last Edit by Tiger Logisticsmelita on 11/06/24 09:15 UA Protein 15 mg/dL Last Edit by Tiger Logisticsmelita on 11/06/24 09:15 UA pH 6.0 Last Edit by Nexterraosmar Talent Flushmelita on 11/06/24 09:15 UA Blood 0 Hernesto/uL Last Edit by Tiger Logisticsmelita on 11/06/24 09:15 UA Specific [place] 1.020 Last Edit by Nexterraosmar Talent Flushmelita on 11/06/24 09:15 UA Ketone Last Edit by Tiger Logisticsmelita on 11/06/24 09:15 UA Bilirubin 0 mg/dL Last Edit by Tiger Logisticsmelita on 11/06/24 09:15 UA Glucose 0 mg/dL Last Edit by Nexterraosmar Talent Flushmelita on 11/06/24 09:15 Results Reviewed Results Reviewed: Laboratory Last Values Urine pH (Auto) 6.0 11/06/24 08:58 Specific [place] (Auto) 1.020 11/06/24 08:58 Urine Protein (Auto) 15 mg/dL 11/06/24 08:58 Glucose (UA)(Auto) 0 mg/dL 11/06/24 08:58 Urine Blood (Auto) 0 [place]/uL 11/06/24 08:58 Urine Bilirubin (Auto) 0 mg/dL 11/06/24 08:58 Urine Urobilinogen (Auto) 0.2 mg/dL 11/06/24 08:58 Leukocyte Esterase (Auto) 0 Agnes/uL 11/06/24 08:58 Assessment & Plan Assessment & Plan (1) Overactive bladder: Code(s): N32.81 - Overactive bladder Category: Medical Plan In office urinalysis results reviewed with the patient today; as noted above. PVR 0 mL. We discussed importance of timed/scheduled voiding. We discussed bladder triggers/irritants. Continue Toviaz as discussed and prescribed. Patient currently denies any bothersome urinary issues or concerns. She reports be happy with current voiding parameters. Follow-up in 1 year with PVR; or sooner with any issues, concerns, and or questions. Orders: Orders AMB Urinalysis Automated Today Z13.9 - Encounter for screening, unspecified AMB Post Void Residual by ultrasound Today R35.1 - Nocturia Patient Instructions: The patient had an opportunity to ask questions regarding the treatment plan. All questions were answered. Physical exam, labs, and imaging were discussed and reviewed in detail. As well as risks, benefits, and discussion of treatment choices. No major barriers to understanding were identified. The patient exp ressed understanding and agreement with the above treatment plan. The patient was made aware they should contact our office by phone for worsening of their current condition, the appearance of new symptoms, or with any questions or concerns. Compliance is encouraged with any medications and follow up testing that is ordered. It is a privilege to be allowed the opportunity to participate in? your urological care.? Again, if you have any questions or concerns If you have any questions or concerns please do not hesitate to contact me. The office is [phone]. This note is constructed using voice recognition software. While every effort has been made to ensure accuracy credit rating checker errors may have been included. Yours sincerely, GALLO Dang Coding Level of Care Code Est Pt Level 3 (60192) Diagnoses Overactive bladder N32.81 CPT Codes Post Residual Void - PVR CPT Code: 94015-Fjst Void Residual by ultrasound ([id number])
== END 2024-11-06 09:28 | disposition home or self-care (01) ==
LOC: HO.HUSH 08:45
PROVIDERS: PCP Internal Medicine; Visit Provider Nurse Practitioner Family
DX: N32.81 Overactive bladder (principal); Z13.9 Encounter for screening, unspecified
CPT/HCPCS: 99213

== ENCOUNTER → 2024-11-06 08:45 | Outpatient (BNVA) | payer MEDICARE, MEDICAID, SELFPAY | PROVIDERS: PCP Internal Medicine; Visit Provider Nurse Practitioner Family | DX: Z00.00 Encounter for general adult medical examination without abnormal findings (principal); E78.00 Pure hypercholesterolemia, unspecified; R73.01 Impaired fasting glucose; J30.9 Allergic rhinitis, unspecified; E55.9 Vitamin D deficiency, unspecified; N32.81 Overactive bladder; L90.0 Lichen sclerosus et atrophicus; F43.10 Post-traumatic stress disorder, unspecified; F33.9 Major depressive disorder, recurrent, unspecified; E66.9 Obesity, unspecified; R35.1 Nocturia; Z68.31 Body mass index [BMI] 31.0-31.9, adult; Z86.79 Personal history of other diseases of the circulatory system | CPT/HCPCS: 51798; 81003; 96127; 99212; 99396 ==

== ENCOUNTER 2024-11-06 09:36 | Outpatient (AMB) | payer MEDICARE, MEDICAID, SELFPAY ==
[2024-11-06 10:04] VITALS: BP 112/78; PULSE 74; O2SAT 97; BMI 31.2
--- NOTE | 2024-11-06 10:04 | MHC.PC.OV ---
Vital Signs 11/06/24 10:04 Height 5 ft 1 in Weight 165 lb 4 oz BMI 31.2 BP 112/78 Blood Pressure Location Lt brachial Position Sitting Pulse 74 Pulse Source Pulse Oximeter Pulse Oximetry (%) 97 Oxygen Delivery Method Room Air Intake Visit Reasons: Annual Exam Electronic Data Processing Auditor Required: No Accompanied by: Self / Same As Patient Allergies bee pollen [BEE STINGS] Allergy (Unknown, Verified 11/06/24 10:23) UNKNOWN Medication List - Last Reconciled 11/06/24 by Marco Gresham MD [ADULT PULL UPS (large) As directed] betamethasone, augmented 0.05 % 1 appl topical DAILY 2 weeks buspirone 5 mg PO BID cholecalciferol (vitamin D3) 50 mcg PO DAILY epinephrine (EpiPen 2-Ken) 0.3 mg (0.3 mL) IM Q15M PRN escitalopram oxalate 20 mg PO DAILY fesoterodine ER (Toviaz) 8 mg PO DAILY 90 days fluticasone propionate 50 mcg/actuation 2 sprays intranasal DAILY hydrocortisone valerate 0.2% 1 appl topical .twice a week incontinence pad, liner, disp As directed loratadine (Claritin Liqui-Gel) 10 mg PO DAILY lorazepam 0.5 mg PO BID PRN 30 days Tobacco use date assessed: 11/06/24 Dental Screening Dental Screen Date: 11/06/24 Did you have a dental visit in the last 12 months?: No Did you have a dental problem in the last 6 months where you did not have access to dental care?: No Was dental information given to patient?: Patient has dentist HPI Annual Exam HPI Details Patient comes in today for her annual physical examination States that she feels okay She denies any headaches or dizziness Denies any chest pains, no SOB No nausea/vomiting, no abdominal pain No change in bowel habits noted She denies any acute urinary symptoms She had her follow up labs done a couple of days ago - to discuss her results She would also like to get her flu shot today as she has not gotten one yet She last had her annual mammogram done on 11/05/23 and is scheduled for her annual mammogram this year later this week on 11/10/24 Her yearly pap smear and gynecology exam was done on 06/09/22; she has her next gynecology exam scheduled on 01/24/25 She had her screening colonoscopy done a couple of years ago on 03/10/[address] Triana; she was advised that her procedure was normal and recommend that she get her next colonoscopy in 10 yrs (2031) [facility] Medical History Vitamin D deficiency Lichen sclerosus et atrophicus Overweight (BMI 25.0-29.9) Depression Post traumatic stress disorder (PTSD) Overactive bladder Allergic rhinitis History of supraventricular tachycardia Impaired fasting glucose Pure hypercholesterolemia Surgical History Hx of colonoscopy History of cardiac radiofrequency ablation History of ankle surgery Family History Father Cancer CVD (cardiovascular disease) Mother Breast cancer Hypertension Diabetes Social History Household Members: Caregiver Household Members Other:: Lives w/Lorena Bowden ([facility]) [facility]. Housing: House Alcohol intake: never Patient Tobacco Use Status: Never used Tobacco e-Cigarette/Vaping Use: Never Used Second Hand Smoke Exposure: No service: No Current occupational status: unemployed Cognitive needs: No Hearing needs: Yes (hearing aide) Vision needs: Yes (glasses) Questionnaire PHQ-9 Over the last 2 weeks, how often have you been bothered by any of the following problems? 1. Little interest or pleasure in doing things: not at all 2. Feeling down, depressed, or hopeless: not at all 3. Trouble falling or staying asleep, or sleeping too much: not at all 4. Feeling tired or having little energy: not at all 5. Poor appetite or overeating: not at all 6. Feeling bad about yourself - or that you are a failure or have let yourself or your family down: not at all 7. Trouble concentrating on things, such as reading the newspaper or watching television: not at all 8. Moving or speaking so slowly that other people could have noticed. Or the opposite - being so fidgety or restless that you have been moving around a lot more than usual: not at all 9. Thoughts that you would be better off or of hurting yourself in some way: not at all Total score: 0 Depression Screening Interpretation: Negative Depression Screening Done: Yes 67159 - PHQ-9 Billing: Yes Source: Developed by Drs. Genaro Serna, Mey Jenkins, Michael Moreau and colleagues, with an educational etta from [employer]. Thrive Questionnaire Date Thrive assessed: 11/06/24 I am a: Patient What is your living situation today?: I have a steady place to live Within the past 12 months, did the food you bought not last and you didn't have the money to get more?: Never true Within the past 12 months, did you worry whether your food would run out before you got money to buy more?: Never true Do you have trouble paying for medicines?: No Do you have trouble getting transportation to medical appointments?: No Do you have trouble paying your heating and electricity bill?: No Do you have trouble taking care of your child, family member or friend?: No Do you have trouble with day-to-day activities such as bathing, preparing meals, shopping, managing finances, etc.?: No Are you currently unemployed and looking for a job?: No Are you interested in more education?: No Please select the resources that you would like help with: None Currently or been in a relationship where the following occur: No concerns reported THRIVE Score: 0 AUDIT C Alcohol Use Questionnaire (AUDIT-C) 1. How often do you have a drink containing alcohol?: Never 3. How often do you have six or more drinks on one occasion?: Never Total Score: 0 Score Reviewed/Action Taken: Yes MILTON-7 AMB Questionnaire MILTON-7 Date MILTON - 7 assessed: 11/06/24 Feeling nervous, anxious, or on edge: 0 = Not at all Not being able to stop or control worryin = Not at all Worrying too much about different things: 0 = Not at all Trouble relaxin = Not at all Being so restless that it is hard to sit still: 0 = Not at all Becoming easily annoyed or irritable: 0 = Not at all Feeling afraid as if something awful might happen: 0 = Not at all Total MILTON-7 score (0-4 normal; 5-9 mild; 10-14 moderate; 15-21 severe): 0 Source: Developed by Kade Cappset B.W. Gregory, Michael Moreau and colleagues, with an educational etta from [employer]. Review of Systems Const Denies chills, Denies difficulty sleeping, Denies fatigue, Denies fever(s) and Denies headache(s) Eyes Denies blurry vision, Denies change in vision, Denies irritation and Denies itchy eyes ENT Details: (+) hard of hearing Denies dysphagia, Denies dizziness, Denies otalgia, Denies headache(s), Denies neck pain, Denies odynophagia and Denies sore throat Card Denies chest pain, Denies irregular heart rhythm, Denies palpitations and Denies dyspnea Resp Denies chest congestion, Denies cough, Denies dyspnea and Denies wheezing GI Denies abdominal pain, Denies bloating, Denies constipation, Denies dysphagia, Denies heartburn, Denies diarrhea, Denies nausea, Denies odynophagia and Denies vomiting Denies difficulty voiding, Denies dysuria, Reports urinary incontinence (especially at night) and Denies urinary urgency Musc Denies back pain, Denies arthralgias and Denies neck pain Skin/Breast Denies lesions and Denies rash Neuro Denies dizziness and Denies headache(s) Psych Denies anxiety and Denies depression Endo Denies fatigue and Denies palpitations Quentin/Lymph Denies easy bruising Aller/Immun Denies itchy eyes and Denies wheezing Physical exam (Primary Care) Vital Signs: Last Vital Signs Pulse 74 11/06/24 10:04 BP 112/78 11/06/24 10:04 Pulse Ox 97 11/06/24 10:04 Oxygen Delivery Method Room Air 11/06/24 10:04 BMI result Body Mass Index 31.2 Tobacco/Smoking Status: Tobacco use Status Tobacco use date assessed 11/06/24 11/06/24 10:12 Patient Tobacco Use Status Never used Tobacco 11/06/24 10:12 e-Cigarette/Vaping Use Never Used 11/06/24 10:12 PHQ-9: PHQ-9 Score PHQ-9: Total score 0 11/06/24 12:32 Depression Screening Interpretation: Negative Thrive Assessment: Date of Thrive Assessment Date Thrive assessed 11/06/24 11/06/24 10:12 Currently or been in a relationship where the following occur: No concerns reported Const General: no acute distress and alert Orientation/consciousness: patient oriented x3 HENMT Head: Yes normocephalic and Yes atraumatic Ears: TM's normal bilaterally and EAC's normal General nose exam: No nasal discharge present Face and sinus: Yes normal facial exam and Yes sinuses nontender Teeth and gingiva: dentition normal Throat: Yes posterior oropharynx normal and Yes tonsils normal (no TP congestion) Eyes Eyelids: Yes eyelids normal Conjunctivae: conjunctivae normal Pupils: Equal, round and reactive pupils present EOM: EOMs intact bilaterally Neck Neck: Yes supple and No lymphadenopathy Thyroid: Thyroid normal Resp Auscultation: clear to auscultation bilaterally, no rales and no wheezes Cardio Rate: regular rate Rhythm: regular rhythm Heart sounds: no murmurs GI Palpation (GI): Soft to palpation, nontender and No hepatosplenomegaly present Auscultation: normal bowel sounds General: Yes no CVA tenderness Back/Spine/Pelvis Back: no CVA tenderness Thoracic/Lumbar Spine: No lumbar spinal tenderness Skin Lesions: no lesions Rashes: no rashes Neuro General: patient oriented x3, moves all extremities, no focal motor deficits and CN's II-XI intact bilaterally Cranial nerves: Yes Equal, round and reactive pupils present Cognition (Neuro): normal cognition Gait exam (Neuro): Normal gait present Extrem General: Yes no clubbing, cyanosis or edema Results AMB Urinalysis, Automated UA Leukoctes 0 Agnes/uL Last Edit by Swivl on 11/06/24 09:15 UA Nitrite Last Edit by Swivl on 11/06/24 09:15 UA Urobilinogen 0.2 mg/dL Last Edit by Swivl on 11/06/24 09:15 UA Protein 15 mg/dL Last Edit by Swivl on 11/06/24 09:15 UA pH 6.0 Last Edit by Swivl on 11/06/24 09:15 UA Blood 0 [place]/uL Last Edit by Swivl on 11/06/24 09:15 UA Specific [place] 1.020 Last Edit by Swivl on 11/06/24 09:15 UA Ketone Last Edit by Swivl on 11/06/24 09:15 UA Bilirubin 0 mg/dL Last Edit by Artie Bojorquez on 11/06/24 09:15 UA Glucose 0 mg/dL Last Edit by Artie Bojorquez on 11/06/24 09:15 Results Reviewed Results Reviewed: Laboratory Tests 11/04/24 11/04/24 10:18 10:20 WBC 6.1 Hgb 13.8 Hct 43.4 Plt Count 261 Sodium 143 Potassium 4.1 Creatinine 0.75 Estimated GFR > 60 Fasting Glucose 93 Hemoglobin A1c % 5.7 Calcium 9.4 AST 26 ALT 26 Triglycerides 76 Cholesterol 164 LDL Cholesterol, Calc 105 H HDL Cholesterol 44 25-OH Vitamin D Total 61.2 TSH 2.30 Ur Specific [place] 1.020 Urine Protein Negative Urine Glucose (UA) Negative Urine Blood Negative Urine Nitrite Negative Ur Leukocyte Esterase Trace H Coding Level of Care Code Est Pt Level 4 (92224) Diagnoses Annual physical exam Z00.00 Pure hypercholesterolemia E78.00 History of supraventricular tachycardia Z86.79 Impaired fasting glucose R73.01 Allergic rhinitis, unspecified seasonality, unspecified trigger J30.9 Allergic rhinitis seasonality: unspecified Allergic rhinitis trigger: unspecified Vitamin D deficiency E55.9 Overactive bladder N32.81 Lichen sclerosus et atrophicus L90.0 Post traumatic stress disorder (PTSD) F43.10 Episode of recurrent major depressive disorder, unspecified depression episode severity F33.9 Active/Remission status: currently active Depression Type: major depressive disorder Major depression episode severity: unspecified Major depression recurrence: recurrent Obesity (BMI 30-39.9) E66.9 Additional Codes PHQ-9 - 88294 - PHQ-9 Billing: Yes ([id number]) Assessment & Plan Assessment & Plan (1) Annual physical exam: Code(s): Z00.00 - Encounter for general adult medical examination without abnormal findings Category: Medical Plan: Results of her labs done a couple of days ago reviewed and discussed with patient She last had her annual mammogram done on 11/05/23 and is scheduled for her annual mammogram this year later this week on 11/10/24 Her yearly pap smear and gynecology exam was done on 06/09/22; she has her next gynecology exam scheduled on 01/24/25 She had her screening colonoscopy done a couple of years ago on 03/10/[address] Triana; she was advised that her procedure was normal and recommend that she get her next colonoscopy in 10 yrs (2031) (2) Pure hypercholesterolemia: Code(s): E78.00 - Pure hypercholesterolemia, unspecified Category: Medical Plan: Reinforced low cholesterol diet Will recheck her labs and fasting lipids in 4 months for follow up (3) History of supraventricular tachycardia: Code(s): Z86.79 - Personal history of other diseases of the circulatory system Category: Medical Plan: She has been asymptomatic with no recurrence of symptoms since her ablation back in 2009 Follow up with cardiology as scheduled or PRN (4) Impaired fasting glucose: Code(s): R73.01 - Impaired fasting glucose Category: Medical Plan: Her FBS was normal at 93 mg/dl on her labs done a couple of days ago; her HgbA1c was also normal at 5.7% Reinforced low calorie/low carb diet, exercise as tolerated (5) Allergic rhinitis: Code(s): J30.9 - Allergic rhinitis, unspecified Category: Medical Qualifiers: Allergic rhinitis seasonality: unspecified Allergic rhinitis trigger: unspecified Qualified Code(s): J30.9 - Allergic rhinitis, unspecified Plan: Continue Fluticasone nasal spray QD PRN and OTC Loratadine 10 mg QD PRN (6) Vitamin D deficiency: Code(s): E55.9 - Vitamin D deficiency, unspecified Category: Medical Plan: Continue Vitamin D3 2000 units QD (7) Overactive bladder: Code(s): N32.81 - Overactive bladder Category: Medical Plan: Continue Toviaz 8 mg QD Follow up with urology (Dr. Cuevas) as scheduled (8) Lichen sclerosus et atrophicus: Code(s): L90.0 - Lichen sclerosus et atrophicus Category: Medical Plan: Follow up with gynecology as scheduled (9) Post traumatic stress disorder (PTSD): Code(s): F43.10 - Post-traumatic stress disorder, unspecified Category: Medical Plan: Continue Lorazepam 0.5 mg BID PRN and Buspirone 5 mg BID Follow up with psychiatry as scheduled (10) Depression: Code(s): F32.9 - Major depressive disorder, single episode, unspecified Category: Medical Qualifiers: Active/Remission status: currently active Depression Type: major depressive disorder Major depression episode severity: unspecified Major depression recurrence: recurrent Qualified Code(s): F33.9 - Major depressive disorder, recurrent, unspecified Plan: Continue Escitalopram 20 mg QD (11) Obesity (BMI 30-39.9): Code(s): E66.9 - Obesity, unspecified Category: Medical Plan: Reinforced diet/exercise as tolerated/lose weight Plan Follow up in 4 months
== END 2024-11-06 10:43 | disposition home or self-care (01) ==
PROVIDERS: PCP Internal Medicine; Visit Provider Internal Medicine
DX: Z00.00 Encounter for general adult medical examination without abnormal findings (principal); F33.9 Major depressive disorder, recurrent, unspecified; E66.9 Obesity, unspecified; Z68.31 Body mass index [BMI] 31.0-31.9, adult; Z86.79 Personal history of other diseases of the circulatory system; E78.00 Pure hypercholesterolemia, unspecified; R73.01 Impaired fasting glucose; J30.9 Allergic rhinitis, unspecified; E55.9 Vitamin D deficiency, unspecified; N32.81 Overactive bladder; L90.0 Lichen sclerosus et atrophicus; F43.10 Post-traumatic stress disorder, unspecified

== ENCOUNTER 2024-11-10 09:24 | Outpatient (REF) | payer MEDICARE, MEDICAID, SELFPAY | END 2024-11-10 09:25 | disposition home or self-care (01) | LOC: HO.MAMMO 09:24 | PROVIDERS: PCP Internal Medicine; Visit Provider Internal Medicine | DX: Z12.31 Encounter for screening mammogram for malignant neoplasm of breast (principal) | CPT/HCPCS: 77063; 77067 ==

== ENCOUNTER → 2024-11-10 09:30 | Outpatient (BNV) | payer MEDICARE, MEDICAID, SELFPAY | PROVIDERS: PCP Internal Medicine; Visit Provider Internal Medicine | DX: Z12.31 Encounter for screening mammogram for malignant neoplasm of breast (principal) | CPT/HCPCS: 77063; 77067 ==

== ENCOUNTER 2025-01-24 08:00 | Outpatient (AMB) | payer MEDICARE, MEDICAID, SELFPAY ==
--- NOTE | 2025-01-24 08:01 | MHC.OFFVIS ---
Intake Visit Reasons: skin check 3 month/30 mins Commercial Maintenance Technician: Commercial Maintenance Technician Present (Polina) Accompanied by: Guardian Allergies bee pollen [BEE STINGS] Allergy (Unknown, Verified 01/24/25 08:01) UNKNOWN HPI Comments Details: Patient is here today for a follow up skin check, history of lichen sclerosus, accompanied by her care provider Lorena. Was doing well on betamethasone augment, then tapered down to hydrocortisone valerate, using twice weekly. She denies any itching or bleeding from the vulva. [facility] Medical History Vitamin D deficiency Lichen sclerosus et atrophicus Overweight (BMI 25.0-29.9) Depression Post traumatic stress disorder (PTSD) Overactive bladder Allergic rhinitis History of supraventricular tachycardia Impaired fasting glucose Pure hypercholesterolemia Surgical History Hx of colonoscopy History of cardiac radiofrequency ablation History of ankle surgery Family History Father Cancer CVD (cardiovascular disease) Mother Breast cancer Hypertension Diabetes Social History Household Members: Caregiver Household Members Other:: Lives w/Lorena Dennise ([facility]) [employer]. Housing: House Alcohol intake: never Patient Tobacco Use Status: Never used Tobacco e-Cigarette/Vaping Use: Never Used Second Hand Smoke Exposure: No service: No Current occupational status: unemployed Cognitive needs: No Hearing needs: Yes (hearing aide) Vision needs: Yes (glasses) Physical Exam Other: External inspection only: increased hypopigmentation and lichification, several fissure, loss of architexture Assessment & Plan Assessment & Plan (1) Lichen sclerosus et atrophicus: Code(s): L90.0 - Lichen sclerosus et atrophicus Category: Medical Plan Discussed: Reviewed progress, unable to lower the potency of the topical steroid without increased flare of symptoms. Skin care, when to report any concerns, persistent irritation, itching, open area's. Medication changed to higher potency, use as directed. Advised we consider referral to a vulvar specialist to re-evaluate and possibly treat with other modalities, staff to check on referrals and who is accepting her insurance. The patient expressed understanding and agreement with the plan of care. All of her questions and concerns were addressed to the best of my ability. This note is constructed using voice recognition software. While every effort has been made to ensure accuracy, note specialist errors may have been included. Medications: Changed From betamethasone, augmented 0.05 % apply a thin a coat to area nightly for two weeks, then 3 times a week at bedtime 1 appl topical DAILY 2 weeks 45 grams 1RF To betamethasone, augmented 0.05 % apply a thin a coat to area nightly 2x/wk 1 appl topical .twice weekly 90 days 45 grams 1RF Coding Level of Care Code Est Pt Level 3 (95989) Diagnoses Lichen sclerosus et atrophicus L90.0
== END 2025-01-24 10:48 | disposition home or self-care (01) ==
PROVIDERS: PCP Internal Medicine; Visit Provider Advanced Practice Midwife
DX: L90.0 Lichen sclerosus et atrophicus (principal)
CPT/HCPCS: 99213

== ENCOUNTER → 2025-01-24 08:00 | Outpatient (BNVA) | payer MEDICARE, MEDICAID, SELFPAY | PROVIDERS: PCP Internal Medicine; Visit Provider Advanced Practice Midwife | DX: L90.0 Lichen sclerosus et atrophicus (principal) | CPT/HCPCS: 99212 ==

== ENCOUNTER 2025-04-06 10:05 | Outpatient (REF) | payer MEDICARE, MEDICAID, SELFPAY ==
[2025-04-07 07:08] LABS: Follicle Stimulating Hormone 100.5 mIU/mL; Lutenizing Hormone 53.1 mIU/mL
== END 2025-04-06 10:06 | disposition home or self-care (01) ==
LOC: HO.LAB 10:05
PROVIDERS: Advanced Practice Midwife; PCP Internal Medicine; Visit Provider Internal Medicine
DX: R73.01 Impaired fasting glucose (principal); E78.00 Pure hypercholesterolemia, unspecified; E66.9 Obesity, unspecified; Z68.29 Body mass index [BMI] 29.0-29.9, adult; E55.9 Vitamin D deficiency, unspecified; J30.9 Allergic rhinitis, unspecified; N32.81 Overactive bladder; R23.2 Flushing; R25.2 Cramp and spasm
CPT/HCPCS: 36415; 83001; 83002; 96127; 99212

== ENCOUNTER 2025-04-06 10:22 | Outpatient (AMB) | payer MEDICARE, MEDICAID, SELFPAY ==
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
[2025-04-06 10:30] VITALS: BP 126/80; PULSE 78; TEMP 36.3; O2SAT 96; BMI 29.9
== END 2025-04-06 10:51 | disposition home or self-care (01) ==
LOC: HO.HMCH 10:23
PROVIDERS: PCP Internal Medicine
DX: E78.00 Pure hypercholesterolemia, unspecified (principal); R73.01 Impaired fasting glucose; E66.9 Obesity, unspecified; Z68.29 Body mass index [BMI] 29.0-29.9, adult; E55.9 Vitamin D deficiency, unspecified; J30.9 Allergic rhinitis, unspecified; N32.81 Overactive bladder; R23.2 Flushing; R25.2 Cramp and spasm